=== PATIENT | female | born 1965 | race Caucasian/White ===

== ENCOUNTER 2022-03-26 09:15 | Outpatient (CLI) | payer OTHER, SELFPAY ==
--- NOTE | ~2022-03-26 | XR_ITS ---
EXAMINATION: XR shoulder RT min 2V INDICATION: Right shoulder pain TECHNIQUE: Four views of the right shoulder are submitted. COMPARISON: None FINDINGS: Normal alignment. No fracture. There is moderate osteoarthritis of the acromioclavicular fede int and mild osteoarthritis of the glenohumeral joint. Soft tissues are unremarkable. IMPRESSION: 1. Osteoarthritis without acute osseous abnormality. Reviewed, dictated and finalized at location B.
--- NOTE | ~2022-03-26 | XR_ITS ---
EXAMINATION: XR hand LT min 3V INDICATION: Medial hand pain, trigger finger of the third finger. TECHNIQUE: Three views of the left hand are obtained. COMPARISON: None available FINDINGS: Bone alignment is normal. There is a questionable old fracture at the dorsal base of the th ird distal phalanx. There is mild osteoarthritis of multiple interphalangeal joints. There is moderat e osteoarthritis at the first interphalangeal joint. IMPRESSION: 1. Polyarticular osteoarthritis. 2. Possible old fracture at the dorsal base of the third distal phalanx. Reviewed, dictated and finalized at location B.
[2022-03-26 18:58] LABS: Basophils Percent Auto 0.8 % (0.2-1.2); Eosinophils Absolute Auto 0.1 K/mm3 (0-0.3); Eosinophils Percent Auto 2.7 % (0-4.4); Hematocrit 42.4 % (37.0-47.0); Hemoglobin 13.2 g/dL (12.0-15.0); Lymphocytes Absolute Auto 1.32 K/mm3 (0.9-3.2); Lymphocytes Percent Auto 35.4 % (18.3-44.2); Mean Corpuscular HGB Conc 31.1 g/dl (32-36); Mean Corpuscular Hemoglobin 30.7 pg (26-34); Mean Corpuscular Volume 98.6 fl (80-100); Mean Platelet Volume 10.7 fl (7.4-10.4); Monocytes Absolute Auto 0.3 K/mm3 (0.1-0.6); Monocytes Percent Auto 7.2 % (2.6-8.5); Neutrophils Percent Auto 53.9 % (45.5-73.1); Platelet Count Result 239 k/mm3 (150-375); Red Cell Distribution Width 15.4 % (11.5-14.5); White Blood Count 3.7 K/mm3 (4.5-10.0)
[2022-03-26 20:04] LABS: Alanine Aminotransferase 21 U/L (6-35); Albumin Level 4.7 g/dL (3.5-5.1); Alkaline Phosphatase 57 U/L (38-126); Anion Gap 8 mmol/L (8-16); Aspartate Amino Transferase 48 U/L (14-36); Bilirubin,Total 0.4 mg/dL (0.2-1.3); Blood Urea Nitrogen 24 mg/dL (7-17); Calcium 9.5 mg/dL (8.4-10.2); Carbon Dioxide 32 mmol/L (22-30); Chloride 97 mmol/L (98-107); Cholesterol 192 mg/dL (0-200); Estimated Glomerular Filt Rate > 60; Glucose 88 mg/dL (65-110); HDL Direct 74 mg/dL; Potassium 4.3 mmol/L (3.4-5.0); Sodium 137 mmol/L (137-145); Triglycerides 86 mg/dL (<150)
[2022-03-26 20:15] LABS: LDL Cholesterol Direct 92 mg/dL
== END 2022-03-26 09:16 | disposition home or self-care (01) ==
LOC: ANHBWCIMG 09:18
PROVIDERS: PCP Family Medicine; Visit Provider Family Medicine
DX: Z00.00 Encounter for general adult medical examination without abnormal findings (principal); M65.332 Trigger finger, left middle finger; M19.042 Primary osteoarthritis, left hand; M19.011 Primary osteoarthritis, right shoulder
CPT/HCPCS: 36415; 73030; 73130; 80053; 80061; 85025

== ENCOUNTER 2022-06-25 09:21 | Emergency (ER) | payer OTHER, SELFPAY ==
[2022-06-25 09:34] VITALS: BP 124/74; PULSE 86; RESP 20; TEMP 37.4; O2SAT 100
--- NOTE | 2022-06-25 11:07 | ED.URI ---
HPI - URI/Sore Throat General Chief Complaint: Upper Respiratory Infection Stated Complaint: Chest Congestion/Cough Time Seen by Provider: 06/25/22 10:50 Source: patient, RN notes reviewed and old records reviewed Mode of arrival: ambulatory Limitations: no limitations History of Present Illness HPI Narrative: 57-year-old female who presents to [facility] with complaints cough, green nasal drainage. fever, headaches, sore throat. pressure face and ears, nausea and vomiting since past Thursday. Patient did go to [facility] urgent care on the and received Tessalon Perles cough tablets and she was tested for COVID and flu which both negative. Patient has taken Flonase, Tesslon Perles, Mucinex, Sudafed and Tylenol and Ibuprofen for her symptoms without resolution. MD elicited complaint: fever, cough, rhinorrhea, nasal congestion and sinus pain Onset (ago): week(s) (1) Treatments prior to arrival: acetaminophen, ibuprofen, cold medicine and other (Mucinex, Tesslon Perles) Related Data Home Medications Medication Instructions Recorded Confirmed ezetimibe 10 mg tablet 10 mg PO DAILY 06/25/22 06/25/22 rosuvastatin 5 mg tablet 5 mg PO DAILY 06/25/22 06/25/22 Allergies Allergy/AdvReac Type Severity Reaction Status Date / Time amoxicillin Allergy Hives Verified 06/25/22 10:39 Review of Systems Review of Systems: CONSTITUTIONAL: Report malaise, chills, sweats, or fever. EYES: Denies visual changes, redness, or discharge. ENT: Reports rhinorrhea, congestion, sinus pain, no otalgia positive sore throat. CARDIOVASCULAR: Denies chest pain, palpitations, or edema. RESPIRATORY: Reports cough.? Denies dyspnea. GASTROINTESTINAL: Denies abdominal pain, positive nausea, vomiting, no diarrhea SKIN: Denies rash or itching. MUSCULOSKELETAL: Denies myalgia. NEUROLOGIC: positive headache. All systems reviewed & are unremarkable except as noted in HPI and below PMFSH Past Medical History Medical History (Updated 06/30/22 @ 14:02 by Shyanne Hendrix NP) Congenital absence of one kidney Elevated cholesterol Surgical History Surgical History (Updated 06/30/22 @ 13:49 by Shyanne Hendrix NP) History of tonsillectomy Social History Social History (Updated 06/30/22 @ 13:50 by KAMLA Leger Smoking status: Never smoker Alcohol intake: unknown Substance use: never Living arrangements: with family Gender identity (if verbalized by the patient): Female Comments At time of signature, agree with nursing past medical, surgical, social and family history. There is no relevant family history pertinent to the presenting complaint Exam Narrative: GENERAL: Well-appearing, well-nourished, and in no acute distress. HEAD: Normocephalic EYES: PERRLA, conjunctivae clear ENT: Nares clear, turbinates edematous and erythematous, yellow greenish discharge. Mucous membranes moist. TM pearly ram with dull light reflex bilaterally; no tragal tenderness. Oropharynx erythematous without lesions. Tonsils not present, no exudate, no drooling, no hoarseness, no trismus, uvula midline, post nasal drainage. NECK: Supple. No lymphadenopathy CHEST: Clear to auscultation, breath sounds equal. No wheezing, rhonchi, rales, or stridor. No respiratory distress, speaks in full sentences, hacking cough SAO2 100% on room air. HEART: Regular rate and rhythm. No murmur heard. SKIN: Warm, dry, no rash. NEURO: Alert and oriented x3. PSYCH: Normal mood and affect Course Course Emergency Course: Patient is aware of diagnosis, understands and agrees to treatment plan.? Anticipatory guidance given.? Patient agrees to follow-up as directed and is aware of reasons to seek care at the emergency department. Portions of this record may have been created with voice recognition software Level of Care: Express Care Visit Vital Signs Vital signs: Vital Signs Temperature 37.4 C 06/25/22 09:34 Pulse Rate 86 06/25/22 09:
[2022-06-25] MEDS: ONDANSETRON HCL ODT 4 MG TABLET SUBLINGUAL (11:17)
== END 2022-06-25 11:55 | disposition home or self-care (01) ==
PROVIDERS: Emergency Provider Registered Nurse; PCP Family Medicine
DX: J32.9 Chronic sinusitis, unspecified (principal); E78.00 Pure hypercholesterolemia, unspecified; Z90.5 Acquired absence of kidney
CPT/HCPCS: 99213; A9270; G0463

== ENCOUNTER 2022-07-21 09:57 | Emergency (ER) | payer OTHER, SELFPAY ==
[2022-07-21 10:04] VITALS: BP 130/74; PULSE 97; RESP 14; TEMP 37.5; O2SAT 98
--- NOTE | 2022-07-21 10:48 | ED.URI ---
HPI - URI/Sore Throat General Chief Complaint: Upper Respiratory Infection Stated Complaint: cold flu Time Seen by Provider: 07/21/22 10:48 Source: patient, RN notes reviewed and old records reviewed Mode of arrival: ambulatory Limitations: no limitations History of Present Illness HPI Narrative: 57-year-old female who presents to [facility] with complaints of sinus pressure, sore throat,headache, nasal congestion, feels achy,and ear popping since yesterday. Patient reports that she has taken nasal spray, Sudafed, Tylenol and tramadol for her discomfort and also some Mucinex. Patient reports that she has had low grade fever and ear popping.Patient reports that she has not had COVID vaccinations or flu shot. MD elicited complaint: cough, sore throat, nasal congestion and other (ear popping) Onset (ago): day(s) (day 2 of symptoms) Treatments prior to arrival: acetaminophen, cold medicine and other (Sudafed, Mucinex,tramadol,Tylenol) Related Data Home Medications Medication Instructions Recorded Confirmed ezetimibe 10 mg tablet 10 mg PO DAILY 06/25/22 06/25/22 rosuvastatin 5 mg tablet 5 mg PO DAILY 06/25/22 06/25/22 Allergies Allergy/AdvReac Type Severity Reaction Status Date / Time amoxicillin Allergy Mild Hives Verified 07/21/22 10:54 Review of Systems Review of Systems: CONSTITUTIONAL: Reports malaise, chills, sweats, or fever. EYES: Denies visual changes, redness, or discharge. ENT: Reports rhinorrhea, congestion, sinus pain, otalgia and sore throat. CARDIOVASCULAR: Denies chest pain, palpitations, or edema. RESPIRATORY: Reports cough.? Denies dyspnea. GASTROINTESTINAL: Denies abdominal pain, nausea, vomiting, diarrhea SKIN: Denies rash or itching. MUSCULOSKELETAL positive myalgia. NEUROLOGIC: Positive headache. All systems reviewed & are unremarkable except as noted in HPI and below PMFSH Past Medical History Medical History (Updated 07/22/22 @ 00:00 by Chapin Daakhil) Congenital absence of one kidney Elevated cholesterol Surgical History Surgical History (Updated 06/30/22 @ 13:49 by Shyanne Hendrix NP) History of tonsillectomy Social History Social History (Updated 06/30/22 @ 13:50 by Shyanne L. Ruma, PATIENT ACCESS MANAGER) Smoking status: Never smoker Alcohol intake: unknown Substance use: never Gender identity (if verbalized by the patient): Female Comments At time of signature, agree with nursing past medical, surgical, social and family history. There is no relevant family history pertinent to the presenting complaint Exam Narrative: GENERAL: Well-appearing, well-nourished, and in no acute distress. HEAD: Normocephalic EYES: PERRLA, conjunctivae clear ENT: Nares clear, turbinates edematous and erythematous, clear discharge. Mucous membranes moist. TM pearly ram with dull light reflex bilaterally; no tragal tenderness. Oropharynx erythematous without lesions. Tonsils not present and without rhroat exudate, no drooling, no hoarseness, no trismus, uvula midline. NECK: Supple. No lymphadenopathy CHEST: Clear to auscultation, breath sounds equal. No wheezing, rhonchi, rales, or stridor. No respiratory distress, speaks in full sentences.cough, SAO2 98% on room air HEART: Regular rate and rhythm. No murmur heard. SKIN: Warm, dry, no rash. NEURO: Alert and oriented x3. PSYCH: Normal mood and affect Course Course Emergency Course: Patient is aware of diagnosis, understands and agrees to treatment plan.? Anticipatory guidance given.? Patient agrees to follow-up as directed and is aware of reasons to seek care at the emergency department. Portions of this record may have been created with voice recognition software Level of Care: Express Care Visit Vital Signs Vital signs: Vital Signs Temperature 37.5 C 07/21/22 10:04 Pulse Rate 97 07/21/22 10:04 Respiratory Rate 14 07/21/22 10:04 Blood Pressure 130/74 07/21/22 10:04 Pulse Oximetry 98 07/21/22
== END 2022-07-21 11:10 | disposition home or self-care (01) ==
PROVIDERS: Emergency Provider Registered Nurse; PCP Family Medicine
DX: J06.9 Acute upper respiratory infection, unspecified (principal); R05.9 Cough, unspecified; E78.00 Pure hypercholesterolemia, unspecified; Q60.0 Renal agenesis, unilateral
CPT/HCPCS: 87804; 99213; G0463

== ENCOUNTER 2022-08-25 13:10 | Outpatient (CLI) | payer OTHER, SELFPAY ==
[2022-08-25 20:38] LABS: Alanine Aminotransferase 22 U/L (6-35); Albumin Level 4.1 g/dL (3.5-5.1); Alkaline Phosphatase 69 U/L (38-126); Aspartate Amino Transferase 44 U/L (14-36); Bilirubin,Total 0.4 mg/dL (0.2-1.3)
[2022-08-25 21:14] LABS: Hepatitis B Surface Antigen Negative (Negative)
[2022-08-25 21:20] LABS: HAV RESULT Negative (Negative); Hepatitis B Core IgM Result Negative (Negative)
[2022-08-25 21:32] LABS: Hepatitis C Virus Antibody Negative (Negative)
== END 2022-08-25 13:11 | disposition home or self-care (01) ==
LOC: ANHBWCLAB 13:28
PROVIDERS: PCP Family Medicine; Visit Provider Family Medicine
DX: D72.819 Decreased white blood cell count, unspecified (principal); R74.01 Elevation of levels of liver transaminase levels; M25.511 Pain in right shoulder; M65.332 Trigger finger, left middle finger
CPT/HCPCS: 36415; 80074; 80076

== ENCOUNTER 2022-09-22 09:27 | Outpatient (CLI) | payer OTHER, SELFPAY ==
[2022-09-22 18:34] LABS: Basophils Percent Auto 0.9 % (0.2-1.2); Eosinophils Absolute Auto 0.1 K/mm3 (0-0.3); Eosinophils Percent Auto 3.6 % (0-4.4); Hematocrit 39.9 % (37.0-47.0); Hemoglobin 12.4 g/dL (12.0-15.0); Lymphocytes Absolute Auto 1.04 K/mm3 (0.9-3.2); Lymphocytes Percent Auto 31.5 % (18.3-44.2); Mean Corpuscular HGB Conc 31.1 g/dl (32-36); Mean Corpuscular Hemoglobin 29.3 pg (26-34); Mean Corpuscular Volume 94.3 fl (80-100); Mean Platelet Volume 10.3 fl (7.4-10.4); Monocytes Absolute Auto 0.3 K/mm3 (0.1-0.6); Neutrophils Absolute Auto 1.8 K/mm3 (1.3-6.7); Platelet Count Result 235 k/mm3 (150-375); Red Blood Count 4.23 M/mm3 (4.2-5.4); Red Cell Distribution Width 17.3 % (11.5-14.5); White Blood Count 3.3 K/mm3 (4.5-10.0)
[2022-09-22 19:15] LABS: Vitamin D 25 Hydroxy 61.6 ng/mL
== END 2022-09-22 09:28 | disposition home or self-care (01) ==
LOC: ANHBWCLAB 09:28
PROVIDERS: PCP Family Medicine; Visit Provider Family Medicine
DX: R79.89 Other specified abnormal findings of blood chemistry (principal); D72.819 Decreased white blood cell count, unspecified; E55.9 Vitamin D deficiency, unspecified
CPT/HCPCS: 36415; 82306; 85025

== ENCOUNTER 2023-01-26 08:41 | Outpatient (CLI) | payer OTHER, SELFPAY ==
[2023-01-26 18:59] LABS: Hematocrit 34.6 % (37.0-47.0); Hemoglobin 10.6 g/dL (12.0-15.0); Mean Corpuscular HGB Conc 30.6 g/dl (32-36); Mean Corpuscular Hemoglobin 29.5 pg (26-34); Mean Corpuscular Volume 96.4 fl (80-100); Mean Platelet Volume 10.4 fl (7.4-10.4); Platelet Count Result 213 k/mm3 (150-375); Red Blood Count 3.59 M/mm3 (4.2-5.4); Red Cell Distribution Width 16.2 % (11.5-14.5); White Blood Count 3.2 K/mm3 (4.5-10.0)
[2023-01-26 19:54] LABS: Alanine Aminotransferase 27 U/L (6-35); Albumin Level 4.2 g/dL (3.5-5.1); Alkaline Phosphatase 51 U/L (38-126); Anion Gap 1 mmol/L (8-16); Aspartate Amino Transferase 54 U/L (14-36); Bilirubin,Total 0.3 mg/dL (0.2-1.3); Blood Urea Nitrogen 18 mg/dL (7-17); Calcium 9.1 mg/dL (8.4-10.2); Carbon Dioxide 34 mmol/L (22-30); Chloride 104 mmol/L (98-107); Cholesterol 135 mg/dL (0-200); Estimated Glomerular Filt Rate > 60; Glucose 107 mg/dL (65-110); HDL Direct 69 mg/dL; Potassium 4.7 mmol/L (3.4-5.0); Sodium 139 mmol/L (137-145); Triglycerides 53 mg/dL (<150)
[2023-01-26 20:05] LABS: LDL Cholesterol Direct 54 mg/dL
== END 2023-01-26 08:42 | disposition home or self-care (01) ==
PROVIDERS: PCP Family Medicine; Visit Provider Family Medicine
DX: F98.8 Other specified behavioral and emotional disorders with onset usually occurring in childhood and adolescence (principal); R00.2 Palpitations; R16.0 Hepatomegaly, not elsewhere classified; R74.8 Abnormal levels of other serum enzymes; D49.0 Neoplasm of unspecified behavior of digestive system; R74.01 Elevation of levels of liver transaminase levels; D72.819 Decreased white blood cell count, unspecified
CPT/HCPCS: 36415; 80053; 80061; 85027

== ENCOUNTER 2024-05-12 06:50 | Outpatient (CLI) | payer OTHER, SELFPAY ==
--- NOTE | ~2024-05-12 | MR_ITS ---
EXAMINATION: MR MRCP wo/w con/w 3D wo ind DATE: 05/12/2024 07:54 INDICATION: Pancreatic abnormality. Family history of malignant neoplasm of digestive organ. TECHNIQUE: Magnetic resonance imaging (MRI) of the abdomen was performed without and with 12 mL Multi Timbo intravenous contrast. Sequences included coronal T2-weighted FS FSE, coronal T2-weighted FSE, a xial T1-weighted LAVA, coronal FS FIESTA, axial dual-echo T1-weighted SPGR, coronal lava-FLEX, sagitt al T2-weighted FSE, axial T2-weighted FSE, and axial DWI. Thick-slab T2-weighted FSE images were obta ined for magnetic resonance cholangiopancreatography (MRCP). Maximum intensity projection 3-D reconst ructions of the volumetric data were created by the technologist. Postcontrast sequences included cor onal LAVA-flex and time course of axial T1-weighted LAVA. COMPARISON: None. FINDINGS: ABDOMEN MRI: There is an 8 mm cyst in the pancreas that communicates with the main pancreatic duct. T he main pancreatic duct is normal in caliber. The liver, gallbladder, spleen, and adrenal glands are normal. Right kidney is absent. There are cysts in left kidney measuring up to 8 mm. There are no dil ated loops of bowel. There are no pathologically enlarged lymph nodes. There is no free intraperitone al fluid. There is severe lower lumbar spondylosis. ABDOMEN MRCP: The common duct is normal in caliber. No choledocholithiasis. IMPRESSION: 1. 8 mm pancreatic cyst. The differential diagnosis includes pseudocyst, intraductal papillary mucino us neoplasm (IPMN), mucinous cystic neoplasm (MCN), serous cystadenoma, and neuroendocrine tumor. Abd omen MRI without and with contrast is recommended in one year. Reviewed, dictated and finalized at location A. IMPRESSION: 1. 8 mm pancreatic cyst. The differential diagnosis includes pseudocyst, intrad uctal papillary mucinous neoplasm (IPMN), mucinous cystic neoplasm (MCN), serou s cystadenoma, and neuroendocrine tumor. Abdomen MRI without and with contrast is recommended in one year.
== END 2024-05-12 06:51 | disposition home or self-care (01) ==
PROVIDERS: PCP Family Medicine; Visit Provider Nurse Practitioner
DX: Z80.0 Family history of malignant neoplasm of digestive organs (principal); K86.2 Cyst of pancreas
CPT/HCPCS: 74183; 76376; A9577

== ENCOUNTER 2024-05-16 09:09 | Outpatient (CLI) | payer OTHER, SELFPAY ==
--- NOTE | 2024-05-16 09:29 | ECG_ITS ---
Test Date: 2024-05-16 09:37:32 Measurements Intervals Adrian Rate: 65 P: 70 OK: 182 QRS: 89 QRSD: 98 T: 56 QT: 386 QTc: 404 Interpretive Statements SINUS RHYTHM WITH SINUS ARRHYTHMIA No previous ECG available for comparison Electronically Signed On 05-16-2024 14:35:00 CDT by Jak Andrew M.D.
== END 2024-05-16 09:10 | disposition home or self-care (01) ==
LOC: ANHSURGERY 09:14
PROVIDERS: PCP Family Medicine; Visit Provider Obstetrics & Gynecology
DX: E78.00 Pure hypercholesterolemia, unspecified (principal); Z01.818 Encounter for other preprocedural examination
CPT/HCPCS: 93005

== ENCOUNTER 2024-05-18 01:57 | Day surgery (SDC) | payer MEDICAID, SELFPAY ==
[2024-05-10 14:48] VITALS: BMI 23.4
--- NOTE | 2024-05-10 14:57 | PC.NURSE ---
Report to the Outpatient Waiting Room, entrance under the green pavilion located off [facility], at time __1100_ on date _05/18/24_. Planned Procedure Time: _1300_.? Time changes happen often and if your time is changed the preop area will call you the afternoon before. - You and your visitor will be asked to self-screen and do not enter if you have any COVID symptoms. Please call surgeon if you need to reschedule. - A mask is optional within the hospital at this time. Patients may have clear liquids (water, carbonated beverages, clear teas, apple juice) until 3 hours prior to surgery with a maximum of 20 ounces. - No food from midnight until time of surgery and no smoking - Infants may have breast milk until 4 hours before surgery, formula 6 hours prior to surgery. - Children will be allowed to drink immediately following surgery.? If applicable, please bring a bottle or sippy cup to assist with drinking. Juice, water, soda, and popsicles are readily available.? For infants on formula, please bring formula the day of surgery.? Pacifiers are allowed. Take only the following medications with a SIP of water on the morning of surgery: NONE DO NOT STOP ANY OF YOUR OTHER PRESCRIPTION MEDICATIONS PRIOR TO SURGERY EXCEPT THE FOLLOWING Medications to discontinue per physician NONE Date to take last dose Please no make-up, nail czech, hairspray, perfume, deodorant, or body powder the day of surgery.? No jewelry (including any body piercings) or valuables the day of surgery, leave them at home.? Please take a shower or bath the night before, or the morning of, surgery with an antibacterial soap.? Wear comfortable, loose fitting clothing.? Children are encouraged to wear pajamas. - Jewelry must be removed prior to entering the operating room.? Rings and piercings that are not removed may be cut off. - The hospital will not accept responsibility for valuables.? - Please leave all valuables, including medications, at home the day of surgery. If you are going home after surgery, a licensed straddle bug driver must drive you home.? - NO public transportation without another adult if you receive anesthesia. - We recommend that an adult stay with you for 24 hours following discharge. - We also recommend that you do not drive, make important decision, drink alcoholic beverages, or take any drugs that were not prescribed by your health care provider for at least 24 hours after your discharge time. For Pediatric surgeries, we recommend two adults accompany the child home. Follow any additional instructions given to you from your surgeon. Telephone instructions given to _PATIENT_and asked if any additional questions and then verbalized understanding. Patient advised to call surgeon office or pre surgery nurse liaison [phone] if any additional questions.
--- NOTE | 2024-05-18 08:58 | PM.IMHP ---
H&P: HPI History of Present Illness Date/Time: 05/18/24 08:58 Chief Complaint: Abnormal pap Narrative: 58 y/o with Pap persistently read as ASC-H, but negative colposcopy and negative ECC. Review of Systems Review of Systems: All systems reviewed & are unremarkable except as noted in HPI and below [facility] Past Medical History Medical History (Updated 05/18/24 @ 09:02 by Pepe Cross MD) Attention deficit disorder Bacterial sinusitis Carpal tunnel syndrome Cervicalgia Colon cancer screening Congenital absence of one kidney Decreased leukocytes Elevated AST (SGOT) Elevated cholesterol Elevated liver enzymes FHx: pancreatic cancer Hand numbness History of LEEP (loop electrosurgical excision procedure) of cervix complicating IPMN (intraductal papillary mucinous neoplasm) Liver mass Memory deficit Palpitations Pancreatic cyst Right shoulder pain Trigger finger, left middle finger Surgical History Surgical History History of hand surgery Right middle finger trigger release History of tonsillectomy Social History Social History Smoking status: Never smoker Alcohol intake: current Drinks per week: 4 Substance use: never Lack of Transportation: No Lack of Food: Never True Current Housing: I Have Housing Concerned About Future Housing: No Difficulty Paying Gas/Electric Bills: No Difficulty Paying for Meds: No Currently Unemployed: No Education: Trade/Vocational Certificate Difficulty w/ Childcare or Family Care: No Living arrangements: with roommate(s) Gender identity (if verbalized by the patient): Female Meds Home Medications and Allergies Home Medications Medication Instructions Recorded Confirmed Type gabapentin 300 mg capsule 300 mg PO BID #30 caps 06/12/22 05/10/24 Rx ezetimibe 10 mg tablet 10 mg PO DAILY 06/25/22 05/10/24 History rosuvastatin 5 mg tablet 5 mg PO DAILY 06/25/22 05/10/24 History tramadol 50 mg tablet 50 mg PO Q6H PRN Pain 11/07/22 05/10/24 History dextroamphetamine-amphetamine 15 15 mg PO QAM #30 tabs 06/15/23 05/10/24 Rx mg tablet (Adderall) fluticasone propionate 50 2 spray intranasal DAILY PRN Nasal 05/10/24 05/10/24 History mcg/actuation nasal Congestion spray,suspension (Flonase Allergy Relief) Allergies Allergy/AdvReac Type Severity Reaction Status Date / Time amoxicillin Allergy Mild Hives Verified 05/10/24 14:44 atomoxetine [From Strattera] AdvReac Mild Dry Mouth Verified 05/10/24 14:44 Exam Const: Orientation/consciousness: patient oriented x3 Other: Well-developed, well-nourished female in no acute distress. Neck: Thyroid: thyroid normal Lymphatic: no lymphadenopathy noted (in neck, axilla or inguinal nodes) Resp: Effort & Inspection: normal respiratory effort Auscultation: clear to auscultation bilaterally Cardio: Rate: regular rate Rhythm: regular rhythm Heart sounds: S1 normal heart sound present and S2 normal heart sound present GI: Other: ABD: Soft, nontender, nondistended. No guarding or rebound tenderness. No hepatosplenomegaly. : General: Yes no CVA tenderness Other: External genitalia: normal female hair distribution, without lesion. Urethral meatus: no lesion, non prolapsed. Bladder: no mass, nontender Vagina: well-estrogenized, without lesion or discharge. No cystocele or rectocele. Cervix: no lesion or discharge. Uterus: small, anteverted, freely mobile, nontender Adnexa: no mass or tenderness. Anus/perineum: no lesions, nontender Back/Spine/Pelvis: Back: no CVA tenderness Skin: General skin exam: normal color and no rashes or lesions noted Neuro: General: patient oriented x3 Extrem: Other: Extremities: nontender with no edema Psych: Mental Status: mental status grossly normal Affect: normal affect Assessment and Plan
[2024-05-18] MEDS: LACTATED RINGERS 1,000 ML 30 ML IV CONT ×2 (11:30→13:35)
[2024-05-18 11:48] VITALS: BP 140/86; PULSE 98; RESP 16; TEMP 36.2; O2SAT 100
[2024-05-18] MEDS: ACETAMINOPHEN 500 MG TABLET 1000 MG PO (11:48)
--- NOTE | 2024-05-18 12:08 | WPDHPUPDATE1 ---
History and Physical Update Update Date/Time: 05/18/24 12:08 History and Physical has been reviewed, including an updated exam of the patient. There are NO changes in the patient's condition. Risks, benefits, and alternatives have been discussed and questions answered. Patient agrees to proceed with procedure.
--- NOTE | 2024-05-18 12:15 | WPDANESEPPF ---
Anes - Initial Pre Proc Eval Procedure: Operation Date: 05/18/24 13:00 Proposed Procedures p Loop Electrical Excision Procedure - Pepe Cross MD Date/Time: 05/18/24 12:15 Surgeon: Pepe Cross MD Pre Op Diagnosis: HGSIL Patient Data Age: 58 Gender: F Height: 1.63 m Weight: 61.2 kg Last Vital Signs Temp 36.2 C L 05/18/24 11:48 Pulse 98 05/18/24 11:48 Resp 16 05/18/24 11:48 BP 140/86 05/18/24 11:48 Pulse Ox 100 05/18/24 11:48 O2 Del Method Room Air 05/18/24 11:48 Allergies Allergy/AdvReac Type Severity Reaction Status Date / Time amoxicillin Allergy Mild Hives Verified 05/18/24 11:45 atomoxetine [From Strattera] AdvReac Mild Dry Mouth Verified 05/18/24 11:45 Home Medications Medication Instructions Recorded Confirmed Type gabapentin 300 mg capsule 300 mg PO BID #30 caps 06/12/22 05/18/24 Rx ezetimibe 10 mg tablet 10 mg PO DAILY 06/25/22 05/10/24 History rosuvastatin 5 mg tablet 5 mg PO DAILY 06/25/22 05/10/24 History tramadol 50 mg tablet 50 mg PO Q6H PRN Pain 11/07/22 05/10/24 History dextroamphetamine-amphetamine 15 15 mg PO QAM #30 tabs 06/15/23 05/10/24 Rx mg tablet (Adderall) fluticasone propionate 50 2 spray intranasal DAILY PRN Nasal 05/10/24 05/10/24 History mcg/actuation nasal Congestion spray,suspension (Flonase Allergy Relief) Patient hx anesthesia problems: none Family hx anesthesia problems: none Results Review: All pre-operative results and documents have been reviewed as part of the pre-operative evaluation. [facility] Past Medical History Medical History Attention deficit disorder Bacterial sinusitis Carpal tunnel syndrome Cervicalgia Colon cancer screening Congenital absence of one kidney Decreased leukocytes Elevated AST (SGOT) Elevated cholesterol Elevated liver enzymes FHx: pancreatic cancer Hand numbness History of LEEP (loop electrosurgical excision procedure) of cervix complicating IPMN (intraductal papillary mucinous neoplasm) Liver mass Memory deficit Palpitations Pancreatic cyst Right shoulder pain Trigger finger, left middle finger Surgical History Surgical History History of hand surgery Right middle finger trigger release History of tonsillectomy Social History Social History Smoking status: Never smoker Alcohol intake: current Drinks per week: 4 Substance use: never Lack of Transportation: No Lack of Food: Never True Current Housing: I Have Housing Concerned About Future Housing: No Difficulty Paying Gas/Electric Bills: No Difficulty Paying for Meds: No Currently Unemployed: No Education: Trade/Vocational Certificate Difficulty w/ Childcare or Family Care: No Living arrangements: with roommate(s) Gender identity (if verbalized by the patient): Female Anes - Eval Final PreProcedure Day of Procedure 05/18/24 12:15 Patient weight: normal Heart: regular rate and rhythm Lungs: clear to auscultation Airway: Mallampati scale class II Neurological: alert and oriented Last oral intake: >/= 8 hours ASA classification: II Emergent: no Anesthetic plan: proceed Anesthesia type and monitoring: general GIVS and standard monitoring Results Review: All pre-operative results and documents have been reviewed as part of the pre-operative evaluation. Informed Consent: The patient's anesthetic plan and its attendant risks and benefits were discussed with the patient/family/POA. Questions were solicited and answers provided to the satisfaction of the patient/family/POA.
[2024-05-18] MEDS: LIDOCAINE HCL 1% PF INJ 5 ML VIAL 10 ML INFILTRATE (13:11)
[2024-05-18] MEDS: FERRIC SUBSULFATE 8 ML SOLUTION WITH APPLICATOR TOPICAL (13:30)
[2024-05-18 13:35] VITALS: BP 89/51; PULSE 56; RESP 12; O2SAT 95
--- NOTE | 2024-05-18 13:38 | W.PM.PROC2 ---
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 Description of Procedure The patient was taken to the operating room where she was prepared and draped in the usual sterile fashion in the dorsal lithotomy position. The bladder was drained with a red rubber catheter. An insulated sterile speculum was placed into the vagina. The anterior lip of the cervix was grasped with single-tooth tenaculum. Ten mL of 1% lidocaine was administered in a paracervical block. LEEP biopsies were then collected, first from the posterior lip of the cervix, then the anterior lip, then the top of the hat. Hemostasis was achieved using a rollerball. Monsel's solution was applied. Hemostasis was excellent. Sponge, lap, needle and instrument counts were correct. The patient was awakened and taken to the recovery room in stable condition. I was present and scrubbed through the entire procedure. Estimated Blood Loss 10 Drains No Packing No Pathology Yes (LEEP biopsies of the cervix: anterior lip, posterior lip, top of the hat) Complications None Condition Stable Disposition PACU
[2024-05-18 14:05] VITALS: BP 97/54; PULSE 62; RESP 12; O2SAT 98
[2024-05-18] MEDS: oxyCODONE HCL (*CRX) 5 MG TAB IR PO (14:18)
[2024-05-18 14:25] VITALS: BP 114/71; PULSE 57; RESP 12
== END 2024-05-18 14:40 | disposition home or self-care (01) ==
PROVIDERS: PCP Family Medicine; Visit Provider Obstetrics & Gynecology
PROC: 0UBC7ZZ Excision of Cervix, Via Natural or Artificial Opening (ICD-10-PCS; CPT 57522; principal; 2024-05-18 13:00)
DX: R87.611 Atypical squamous cells cannot exclude high grade squamous intraepithelial lesion on cytologic smear of cervix (ASC-H) (principal); R87.810 Cervical high risk human papillomavirus (HPV) DNA test positive; G89.18 Other acute postprocedural pain; F98.8 Other specified behavioral and emotional disorders with onset usually occurring in childhood and adolescence; E78.00 Pure hypercholesterolemia, unspecified; Z79.891 Long term (current) use of opiate analgesic; Z98.890 Other specified postprocedural states; Z90.5 Acquired absence of kidney; Z86.018 Personal history of other benign neoplasm; Z80.0 Family history of malignant neoplasm of digestive organs
CPT/HCPCS: 57522; 88307; A9270; J1100; J1885; J2003; J2250; J2405; J2704; J3010; J7120

== ENCOUNTER 2024-05-20 09:00 | Outpatient (RCR) | payer MEDICAID, OTHER, SELFPAY ==
--- NOTE | 2024-04-28 16:03 | OPREHPOC ---
Outpatient Therapy Plan of Care This is a Multidisciplinary Plan of Care that may contain components documented by all disciplines (PT, OT, and ST.) PT Problem 1 PT Problem #1 Knowledge Deficit PT Goal 1 Goal / Goal Update 1. Patient will perform independent HEP Target Visit 3 PT Problem 2 PT Problem #2 Impaired Strength PT Goal 1 Goal / Goal Update 1. Improve pelvic floor strength to 4/5 to reduce incontinence Target Visit 5 PT Problem 3 PT Problem #3 Impaired Functional ADLs PT Goal 1 Goal / Goal Update 1. Patient will report incontinence no more than 1 time a month 2. Patient able to hold urge to void at least 30 minutes Target Visit 5
--- NOTE | 2024-04-28 16:03 | PTOPEVAL1 ---
Assessment and note entered by Shannan Valdivia DPT Evaluation Information Assessment Status Evaluation ICD-10 Condition Codes (PT) Weakness R53.1,R10.2,Urge incontinence N39.41 Subjective Information Pt reports she is having urinary incontinence, seems more related to urge than coughing/sneezing. Also has had hemorrhoids. Voids 6-10 times a day, 0-1 times at night. Can hold urge 1-5 minutes. Denies pain with urination. Incontinence 2-3 times a week, moderate volume and is enough that she will change her underwear. Has worn pads for it but not consistently. BM usually 1 time a day, noticing a fecal smear in her underwear up to once a week. Denies pain with BM. Denies history of pelvic pain. Pt has been 3 times and 3 vaginal deliveries. Tearing with her first. No other [employer] or b/b history. Drinking mostly water throughout the day, 3 cups of coffee a week. No soda, green tea occasionally. Alcohol 2-3 times a week. Returns to [place] in 2 weeks for LEEP. Patient goal: have the confidence to not carry extra underwear around, improve urination Reported Pain Level Pain Score 0: Self Report Assessment PT Clinical Summary The patient is presenting to skilled therapy with a history of urge incontinence. She presents with decreased pelvic floor, core, and hip strength which are contributing to her incontinence multiple times a week and inability to hold urine more than a few minutes at a time. She will highly benefit from therapy to address these impairments in order to reduce incontinence and improve function. Plan of Care Interventions Manual Therapy,Neuro Re-education,Patient/ Caregiver Education,Therapeutic Activities, Therapeutic Exercise PT Services Indicated Yes Treatment Frequency and 1 time a week for 5 visits Duration These treatments will address the objective and functional deficits as defined above. The patient will be advanced safely and appropriately in order for the patient to progress towards his/her prior level of function. Additional exercises will be introduced and as well as a comprehensive home exercise program upon discharge, if needed, ?to ensure carryover of functional gains achieved in the clinic. This treatment plan has been reviewed and agreement upon by the patient.
--- NOTE | 2024-05-05 10:28 | PCPTNOTE ---
Patient called to cancel appointment on 05/05/24 due to going out of town.
--- NOTE | 2024-07-14 13:13 | PTOPDC ---
Assessment and note entered by Shannan Valdivia DPT Evaluation Information Assessment Status Discharge - Pt Not Present ICD-10 Condition Codes (PT) Weakness R53.1,Pelvic and perineal pain R10.2,Urge incontinence N39.41 Subjective Information - Assessment PT Clinical Summary The patient has not attended therapy since and her case will be discharged this date. Plan of Care PT Services Indicated No
== END 2024-07-15 10:17 | disposition home or self-care (01) ==
LOC: ANHPT 09:00
PROVIDERS: PCP Nurse Practitioner Adult Health; Visit Provider Obstetrics & Gynecology
DX: R10.2 Pelvic and perineal pain (principal); N39.41 Urge incontinence
CPT/HCPCS: 97110; 97112; 97161; 97530

== ENCOUNTER 2024-10-26 09:41 | Outpatient (CLI) | payer OTHER, SELFPAY ==
[2024-10-26 10:16] LABS: Hematocrit 40.3 % (37.0-47.0); Hemoglobin 13.2 g/dL (12.0-15.0)
--- OUTSIDE RECORDS SUMMARY | 2024-10-26 10:45 | XMS_ITS | Encounter Summary ---
Author Organization [facility] Address [address] [place] [address] Phone Care Team Providers Care Dye Penetrant Testing Technician Name Role Phone Nishi Olsen MD Primary Care Provider [phone] Pepe Cross MD Unavailable [phone] Everardo CHANDLER MD, Román Pérez Unavailable +- [phone] Bel Romero Unavailable +[phone] Román Acosta MD Unavailable [phone] Maynor العراقي MD Unavailable [phone] Corazon Wellington MD Unavailable [phone] Unknown, Notinfile Primary Care Provider Unavail able Michael Li MD Primary Care Provider [phone] Encounter Details Date Type Department Care Team (Late st Contact Info) Description 04/26/2020 Orders Only [facility] [address] [place] [address] Scanning, Provider Social History Tobacco Use Types Packs/Day Years Used Date Smoking Tobacco: Former Smokeless Tobacco: Never Alcohol Use Standard Drinks/Week Comments Yes 4 (1 standard drink = 0.6 oz pur e alcohol) occasional/social PHQ-2 Answer Date Recorded PHQ-2 Total Score (If total score is 3 or more points, staff should administer the PHQ-9) 1 11/08/2019 Comments No Sex and Gender Information Value Date Recorded Sex Assigned at Not on file 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 Gender Identity Female 03/02/2020 7:16 AM CDT Sexual Orientation Straight 03/02/2020 7: 16 AM CDT documented as of this encounter Plan of Treatment Not on file documented as of this encounter Procedures Procedure Name Priority Date/Time Associated Diagnosis Comments CARDIOLOGY DOCUMENT SCAN 04/26/2020 documented in this encounter Results * SCAN - CARDIOLOGY (04/26/2020) Anatomical Region Laterality Modality Other us Provider Scanning CV CARDIAC SERVICES PROCEDURES Final Result documented in this encounter Visit Diagnoses Not on filedocumented in this encounter Additional Health Concerns Infection Onset Date Last Indicated Resolved Time COVID: Recovered Comment:Patient meets COVID recovered criteria. Positive lab results from 07/03. JACOB Ng 07/23/2020 07/23/2020 11/21/19 21 3:05 AM CDT documented as of this encounter Care Teams Dye Penetrant Testing Technician Relationship Specialty Start Date End Date Nishi Olsen MD PCP - General 10/31/16 12/01/22 Unknown, Notinfile PCP - General 01/31/23 07/06/24 Michael Li MD [address] [place] [address] PCP - General Family Practice 07/07/24 Pepe Cross MD [address] [address] Obstetrics and Gynecology 08/24/17 Román Mcgee III, MD [address] [address] Surgeon Plastic Surgery 08/24/18 Bel Romero PA [address] [address] Orthopedic Surgery 07/25/20 12/04/20 Román Acosta MD [address] [address] Surgeon Orthopedic Surgery 12/05/20 Maynor العراقي MD [address] [address] Consulting Physician Cardiology 12/05/20 Corazon Wellington MD [address] [facility] [address] [place] [address] Consulting Physician Gastroenterology 12/05/20 documented as of this encounter
--- OUTSIDE RECORDS SUMMARY | 2024-10-26 10:45 | XMS_ITS | Encounter Summary ---
Author Organization [facility] Address [address] [place] [address] Phone Care Team Providers Care Eye Clinic Manager Name Role Phone Nishi Olsen MD Primary Care Provider [phone] Pepe Cross MD Unavailable [phone] Everardo CHANDLER MD, Román Pérez Unavailable +- [phone] Bel Romero Unavailable [phone] Román Acosta MD Unavailable [phone] Maynor العراقي MD Unavailable [phone] Corazon Wellington MD Unavailable [phone] Unknown, Notinfile Primary Care Provider Unavail able Michael Li MD Primary Care Provider [phone] Encounter Details Date Type Department Care Team (Late st Contact Info) Description 04/10/2020 Orders Only [facility] [address] [place] [address] Scanning, Provider Social History Tobacco [...] on file 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 Gender Identity Female 03/02/2020 7:16 AM CDT Sexual Orientation Straight 03/02/2020 7: 16 AM CDT documented as of this encounter Plan of Treatment Not on file documented as of this encounter Procedures Procedure Name Priority Date/Time Associated Diagnosis Comments CARDIOLOGY DOCUMENT SCAN 04/10/2020 documented in this encounter Results * CARDIOLOGY DOCUMENT SCAN (04/10/2020) Anatomical Region Laterality Modality Other us Provider [...] documented as of this encounter Care Teams Eye Clinic Manager Relationship Specialty Start Date End Date Nishi Olsen MD PCP - General 10/31/16 12/01/22 Unknown, Notinfile PCP - General 01/31/23 07/06/24 Michael Li MD [address] [place] [address] PCP - General Family Practice 07/07/24 Pepe Cross MD [address] [address] Obstetrics and Gynecology 08/24/17 Román Mcgee III, MD [address] [address] Surgeon Plastic Surgery 08/24/18 Bel Romero PA [address] [address] Orthopedic Surgery 07/25/20 12/04/20 Román Acosta MD [address] [address] Surgeon Orthopedic Surgery 12/05/20 Maynor العراقي MD [address] [address] Consulting Physician Cardiology 12/05/20 Corazon Wellington MD [address] [facility] [address] [place] [address] Consulting Physician Gastroenterology 12/05/20 documented as of this encounter
--- OUTSIDE RECORDS SUMMARY | 2024-10-26 10:45 | XMS_ITS | Encounter Summary ---
Author Organization [facility] Address [address] [facility] [place] [address] Phone Care Team Providers Care Stave Saw Operator Name Role Phone Camilo Chisholm MD [facility] Michael Erazo MD Primary Care Provider [phone] Encounter Details Date Type Department Care Team (Late st Contact Info) Description 05/12/2023 Transcribe Orders [facility] Central Scheduling [address] [place] [address] Chiquita Benavidez APRN, VACUUM FORM OPERATOR [address] [address] Social History Tobacco Use Types Packs/Day Years Used Date Smoking Tobacco: Never Smokeless Tobacco: Never Alcohol Use Standard Drinks/Week Comments Yes 0 (1 standard drink = 0.6 oz pur e alcohol) social Sexually Active Control Partners Comments Yes Male Comments No Sex and Gender Information Value Date Recorded Sex Assigned at Female 03/16/2023 1:14 PM CDT Legal Sex Female 12:33 AM CDT Gender Identity Female 03/16/2023 1:14 PM CDT Sexual Orientation Not on file COVID-19 Exposure Response Date Recorded In the last 10 days, have yo u been in contact with someone who was confirmed or suspected to have Coronavirus/COVID-19? No / Unsure 05/15/2023 4:18 PM CDT documented as of this encounter Plan of Treatment Not on file documented as of this encounter Visit Diagnoses Not on filedocumented in this encounter Care Teams Stave Saw Operator Relationship Specialty Start Date End Date Michael Li MD [address] [place] [address] PCP - General Family Medicine 03/31/22 Camilo Chisholm MD Aircraft Time Clerk Cardiovascular Disease - Cardiology 03/21/22 documented as of this encounter
--- OUTSIDE RECORDS SUMMARY | 2024-10-26 10:45 | XMS_ITS | Encounter Summary ---
Author Organization [facility] Address [address] [place] [address] Phone Care Team Providers Care Manager Fixed Income Name Role Phone Nishi Olsen MD Primary Care Provider [phone] Pepe Cross MD Unavailable [phone] Everardo CHANDLER MD, Román Pérez Unavailable +- [phone] Bel Romero Unavailable [phone] Román Acosta MD Unavailable [phone] Maynor العراقي MD Unavailable +[phone] Corazon Wellington MD Unavailable [phone] Unknown, Notinfile Primary Care Provider Unavail able Michael Li MD Primary Care Provider [phone] Encounter Details Date Type Department Care Team (Late st Contact Info) Description 04/19/2020 Orders Only [facility] [address] [place] [address] Scanning, Provider Social History Tobacco [...] on file 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 Gender Identity Female 03/02/2020 7:16 AM CDT Sexual Orientation Straight 03/02/2020 7: 16 AM CDT documented as of this encounter Plan of Treatment Not on file documented as of this encounter Procedures Procedure Name Priority Date/Time Associated Diagnosis Comments CARDIOLOGY DOCUMENT SCAN 04/19/2020 documented in this encounter Results * SCAN - CARDIOLOGY (04/19/2020) Anatomical Region Laterality Modality Other us Provider [...] documented as of this encounter Care Teams Manager Fixed Income Relationship Specialty Start Date End Date Nishi Olsen MD PCP - General 10/31/16 12/01/22 Unknown, Notinfile PCP - General 01/31/23 07/06/24 Michael Li MD [address] [place] [address] PCP - General Family Practice 07/07/24 Pepe Cross MD [address] [address] Obstetrics and Gynecology 08/24/17 Román Mcgee III, MD [address] [address] Surgeon Plastic Surgery 08/24/18 Bel Romero PA [address] [address] Orthopedic Surgery 07/25/20 12/04/20 Román Acosta MD [address] [address] Surgeon Orthopedic Surgery 12/05/20 Maynor العراقي MD [address] [address] Consulting Physician Cardiology 12/05/20 Corazon Wellington MD [address] [facility] [address] [place] [address] Consulting Physician Gastroenterology 12/05/20 documented as of this encounter
--- OUTSIDE RECORDS SUMMARY | 2024-10-26 10:45 | XMS_ITS | Encounter Summary ---
Author Organization [facility] Address [address] [place] [address] Phone Care Team Providers Care Environmental Property Assessor Name Role Phone Nishi Olsen MD Primary Care Provider [phone] Pepe Cross MD Unavailable [phone] Everardo CHANDLER MD, Román Pérez Unavailable [phone] Bel Romero Unavailable [phone] Román Acosta MD Unavailable [phone] Maynor العراقي MD Unavailable +[phone] Corazon Wellington MD Unavailable [phone] Unknown, Notinfile Primary Care Provider Unavail able Michael Li MD Primary Care Provider [phone] Encounter Details Date Type Department Care Team (Late st Contact Info) Description 11/08/2020 Orders Only [facility] [address] [place] [place] [address] Nishi Olsen MD [address] [place], [place] [id number] Social History Tobacco Use Types Packs/Day Years [...] on file Legal Sex Female 3:58 PM MANAGER 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 Gender Identity Female 03/02/2020 7:16 AM CDT Sexual Orientation Straight 03/02/2020 7: 16 AM CDT documented as of this encounter Plan of Treatment Not on file documented as of this encounter Procedures Procedure Name Priority Date/Time Associated Diagnosis Comments SCAN - RADIOLOGY/IMAGING 11/08/2020 documented in this encounter Results * SCAN - RADIOLOGY/IMAGING (11/08/2020) Anatomical Region Laterality Modality Other us Nishi Olsen MD Final Resu lt documented in this encounter Visit Diagnoses Not on filedocumented in this encounter Additional Health Concerns Infection Onset Date Last Indicated Resolved Time COVID: Recovered Comment:Patient meets COVID recovered criteria. Positive lab results from 07/03. JACOB Ng 07/23/2020 07/23/2020 11/21/19 21 3:05 AM CDT documented as of this encounter Care Teams Environmental Property Assessor Relationship Specialty Start Date End Date Nishi Olsen MD PCP - General 10/31/16 12/01/22 Unknown, Notinfile PCP - General 01/31/23 07/06/24 Michael Li MD [address] [place] [address] PCP - General Family Practice 07/07/24 Pepe Cross MD [address] [place] [address] Obstetrics and Gynecology 08/24/17 Román Mcgee III, MD [address] [place] [address] Surgeon Plastic Surgery 08/24/18 Bel Romero PA [address] [address] Orthopedic Surgery 07/25/20 12/04/20 Román Acosta MD [address] [address] Surgeon Orthopedic Surgery 12/05/20 Maynor العراقي MD [address] [place] [address] Consulting Physician Cardiology 12/05/20 Corazon Wellington MD [address] [place] [address] Consulting Physician Gastroenterology 12/05/20 documented as of this encounter
--- OUTSIDE RECORDS SUMMARY | 2024-10-26 10:45 | XMS_ITS | Clinical Summary ---
Author Organization [facility] Address [address] [place] [address] Phone Care Team Providers Care Floral Associate Name Role Phone Camilo Chisholm MD Unavailable Michael Erazo MD Primary Care Provider [phone] Allergies Active Allergy Reactions Criticality Noted Date Comments Amoxicillin Hives 01/28/2019 Atorvastatin Other (see Comments) High 02/20/2020 Buspirone Other (see Comments) Low 03/27/2022 Reaction: dry mouth, Rosuvastatin Other (see Comments) High 04/10/2020 Medications amphetamine-dex troamphetamine (ADDERALL XR) 5 MG CAPSULE SR 24 HR TAKE 1 CAPSULE BY MOUTH EVERY MORNING 02/02/2023 Active fluticasone (FLONASE) 50 MCG/ACT Suspension 2 Sprays by Nasal route. 12/23/2021 Active gabapentin (NEURONTIN) 300 MG Capsule Take 300 mg by mouth. 06/12/2022 Active meloxicam (MOBIC) 15 MG Tablet Take 1 tablet every day by oral route with meals. 04/05/2020 Active rosuvastatin (CRESTOR) 5 MG TabletIndicatio ns:Palpitations TAKE 1 TABLET BY MOUTH DAILY 90 Tablet 3 10/12/2023 Active ezetimibe (ZETIA) 10 MG Tablet Take 1 Tablet by mouth daily. 90 Tablet 3 10/12/2023 Active Clindamycin HCl (CLEOCIN) 300 MG Capsule 11/20/2023 Active methylPREDNISol one (MEDROL DOSPACK) 4 MG Tablet Therapy Pack 11/20/2023 Active Active Problems Problem Noted Date Diagnosed Date B12 deficiency 11/23/2023 IPMN (intraductal papillary mucinous neoplasm) 0 03/05/2023 ADD (attention deficit disorder) 03/05/2023 Liver mass 03/05/2023 Iron deficiency 03/05/2023 Anemia Family History Medical History Relation Name Comments Diabetes Brother Heart Disease Brother Cancer Father Heart Disease Father Diabetes Mother Hypertension Mother Relation Name Status Comments Brother Alive Father Mother Alive Social History Tobacco Use Types Packs/Day Years Used Date Smoking Tobacco: Never Smokeless Tobacco: Never Tobacco Cessation:Counseling Given: Not Answered Alcohol Use Standard Drinks/Week Comments Yes 0 (1 standard drink = 0.6 oz pur e alcohol) social Sexually Active Control Partners Comments Yes Male Comments No Sex and Gender Information Value Date Recorded Sex Assigned at Female 03/16/2023 1:14 PM CDT Legal Sex Female 12:33 AM CDT Gender Identity Female 03/16/2023 1:14 PM CDT Sexual Orientation Not on file Last Filed Vital Signs Vital Sign Reading Time Taken Comments Blood Pressure 118/64 03/07/2024 3:40 PM CDT Pulse 77 03/07/2024 3:40 PM CDT Temperature 36.9 C (98.5 F) 03/07/2024 3:40 PM CDT Respiratory Rate 15 03/07/2024 3:40 PM CDT Oxygen Saturation 97% 03/07/2024 3:40 PM CDT Inhaled Oxygen Concentration - - Weight 60.4 kg (133 lb 3.2 oz) 11/23/2023 9:45 A M CDT Height 162.6 cm (5' 4 ) 11/23/2023 9:45 AM CDT Body Mass Index 22.86 11/23/2023 9:45 AM CDT Plan of Treatment Health Maintenance Due Date Last Done Comments Hepatitis C Virus (HCV) Screening 1966 Hepatitis B Immunization (1 of 3 - 19+ 3-dose series) 1985 Pap Smear 1987 Cervical Cancer Screening (CCS) 1996 HPV/Cotest 1996 Colonoscopy 2011 Cologuard 2016 Pneumococcal Immunization (50+ years) (1 of 1 - PCV) 2016 Zoster Immunization (2 of 2) 09/27/2019 08/02/2019 Colorectal Cancer Screening 03/17/2023 Immunochemical Fecal Occult Blood 03/16/2024 03/16/2023 Influenza Immunization (#1) 04/03/202407/05, 05/30/2016, 05/30/2015, Additional history exists SARS-COV-2 Immunization ( - season) 2024 Mammogram 12/03/2024 12/04/2023, 05/0 11/2022, 11/22/2021 Respiratory Syncytial Virus (RSV) Immunization (Adult) (1 - 1-dose 75+ series) 2041 DTaP/Tdap/Td Immunization Discontinued 08/02/2020, 12/2011 TdaP Immunization Completed 08/02/2020, 05/07/2012 Meningococcal Immunization (ACWY) Aged Out No longer eligible based on patient's age to complete this topic Rotavirus Immunization Aged Out No lo nger eligible based on patient's age to complete this topic Procedures Procedure Name Priority Date/Time Associated Diagnosis Comments ZACK DIAG BILATERAL DIGITAL W CAD W LAUREANO Routine 12/04/2023 8:55 AM CDT Abnormal mammogram STOOL, OCCULT BLOOD, DIAGNOSTIC, VIA GUAIAC Routine 03/16/2023 1:26 PM CDT Anemia, unspecified type from Last 3 Months or Most Recently Relevant to Health Maintenance Results * ZACK DIAG BILATERAL DIGITAL W CAD W LAUREANO (12/04/2023 8:55 AM CDT) Anatomical Region Laterality Modality breast Bilateral Mammography 12/04/2023 8:14 AM CDT Narrative 12/04/2023 11:17 AM CDT - ZACK DIAG BILATERAL DIGITAL W CAD W LAUREANO - ZACK US BREAST LIMITED LT BILATERAL DIGITAL DIAGNOSTIC MAMMOGRAM 3D/2D WITH CAD WITH MEDIOLATERAL OBLIQUE CRANIOCAUDAL AND LEFT ULTRASOUND: 12/04/2023 The study was acquired using digital technology and interpreted from soft copy. Current study was also evaluated with ICAD version 7.2. 2D digital mammographic views, as well as 3D digital tomosynthesis were performed in the CC and MLO projections. CLINICAL: Diagnostic study. Patient returns for a 2 year follow-up left breast. Right annual. Left upper-outer breast tenderness. No personal history of cancer. No family history of breast cancer. COMPARISONS: Comparison is made to exams dated: 11/22/2021, 01/07/2022, 12/04/2022 [facility], and 11/08/2020 [facility]. BREAST TISSUE:There are scattered fibroglandular densities in both breasts. FINDINGS: BILATERAL DIAGNOSTIC MAMMOGRAM: The previously seen asymmetry in the left breast middle depth medial region seen on the craniocaudal view only appears stable. No sonographic lesion was seen previously. This demonstrates 2 year stability and is now considered benign. No other significant masses, calcifications, or other findings are seen in either breast . No lesions are seen underlying the area of pain in the upper outer left breast. Further evaluation was obtained with sonography. TARGETED LEFT BREAST ULTRASOUND: Targeted sonographic evaluation of the area of pain in the upper outer left breast was performed. No solid or cystic lesions are seen. IMPRESSION: OVERALL STUDY BIRADS: 2 BENIGN The asymmetry in the left breast is stable and is now considered benign. No lesions are seen underlying the area of pain in the upper outer left breast. There is no mammographic or sonographic evidence of malignancy. A 1 year screening mammogram is recommended. The results and recommendations were discussed with the patient. Electronically signed by: Susanne Riddle M.D. ll/:12/04/2023 09:32:26 Lead Database Developer(s): RT Shelly(R)(M), [facility]; Mulu Vincent, [facility] letter sent: Normal Exam Reading location: [facility] OVERALL STUDY BIRADS: 2 Benign Procedure Note Susanne Riddle MD - 12/04/2023 - ZACK DIAG BILATERAL DIGITAL W CAD W LAUREANO - ZACK US BREAST LIMITED LT BILATERAL DIGITAL DIAGNOSTIC MAMMOGRAM 3D/2D WITH CAD WITH MEDIOLATERAL OBLIQUE CRANIOCAUDAL AND LEFT ULTRASOUND: 12/04/2023 The study was acquired using digital technology and interpreted from soft copy. Current study was also evaluated with ICAD version 7.2. 2D digital mammographic views, as well as 3D digital tomosynthesis were performed in the CC and MLO projections. CLINICAL: Diagnostic study. Patient returns for a 2 year follow-up left breast. Right annual. Left upper-outer breast tenderness. No personal history of cancer. No family history of breast cancer. COMPARISONS: Comparison is made to exams dated: 11/22/2021, 01/07/2022, 12/04/2022 [facility], and 11/08/2020 [facility]. BREAST TISSUE:There are scattered fibroglandular densities in both breasts. FINDINGS: BILATERAL DIAGNOSTIC MAMMOGRAM: The previously seen asymmetry in the left breast middle depth medial region seen on the craniocaudal view only appears stable. No sonographic lesion was seen previously. This demonstrates 2 year stability and is now considered benign. No other significant masses, calcifications, or other findings are seen in either breast . No lesions are seen underlying the area of pain in the upper outer left breast. Further evaluation was obtained with sonography. TARGETED LEFT BREAST ULTRASOUND: Targeted sonographic evaluation of the area of pain in the upper outer left breast was performed. No solid or cystic lesions are seen. IMPRESSION: OVERALL STUDY BIRADS: 2 BENIGN The asymmetry in the left breast is stable and is now considered benign. No lesions are seen underlying the area of pain in the upper outer left breast. There is no mammographic or sonographic evidence of malignancy. A 1 year screening mammogram is recommended. The results and recommendations were discussed with the patient. Electronically signed by: Susanne Riddle M.D. ll/:12/04/2023 09:32:26 Lead Database Developer(s): Fatimah Way RT(R)(M), [facility]; Mulu Vincent, [facility] letter sent: Normal Exam Reading location: [facility] OVERALL STUDY BIRADS: 2 Benign us Pepe Cross MD [facility] MAMMO ORDERABLES Final Resu lt * STOOL, OCCULT BLOOD, DIAGNOSTIC (03/16/2023 1:26 PM CDT) OCCULT BLOOD DIAG, GI BLEED Negative Negative 03/16/2023 2:03 PM CDT [facility] Stool STOOL SPECIMEN / Unknown Non-Phlebotomy Collection / Unknown 03/16/2023 1:26 PM CDT 03/16/2023 1:26 PM CDT us Michael Li MD BODY FLUIDS & STOOLS ORDERABLES Final Result [facility] [place] [address] from Last 3 Months or Most Recently Relevant to Health Maintenance Insurance MEDICAID [employer] [place] [employer] Care Teams Floral Associate Relationship Specialty Start Date End Date Michael Li MD [address] [place] [id number] PCP - General Family Medicine 03/31/22 Camilo Chisholm MD Flavoring Oil Filterer Cardiovascular Disease - Cardiology 03/21/22
--- OUTSIDE RECORDS SUMMARY | 2024-10-26 10:45 | XMS_ITS | Encounter Summary ---
Author Organization [facility] Address [address] [facility] [place] [address] Phone Care Team Providers Care Insight Leader Name Role Phone Camilo Chisholm MD [facility] Michael Erazo MD Primary Care Provider [phone] Reason for Visit * Reason Comments Medication Refill Encounter Details Date Type Department Care Team (Late st Contact Info) Description 10/11/2023 Refill [facility] [address] [place] [id number] Camilo Chisholm MD Medication Refill Social History Tobacco Use Types Packs/Day Years [...] PM CDT Sexual Orientation Not on file documented as of this encounter Miscellaneous Notes * Telephone Encounter - Tootie Salgado RN - 10/12/2023 8:01 AM CDT Medication failed the protocol, provider to review and approve the medication order if appropriate. Requested Prescriptions Pending Prescriptions Disp Refills rosuvastatin (CRESTOR) 5 MG Tablet [Pharmacy Med Name: ROSUVASTATIN 5MG TABLETS] 90 Tablet 3 Sig: Take 1 Tablet by mouth daily. Hmg CoA Reductase Inhibitors Protocol Failed - 10/11/2023 5:45 AM Failed - Lipid panel in past 12 months LDL Date Value Ref Range Status 01/26/2023 54 0 - 130 mg/dL Final Passed - Visit with relevant provider in past 18 months or upcoming 90 days Recent Visits Date Type Provider Dept 05/05/23 Office Visit Camilo Chisholm MD [facility] [place] 08/07/22 Office Visit Camilo Chisholm MD [facility] [place] Showing recent visits within past 548 days and meeting all other requirements Future Appointments No visits were found meeting these conditions. Showing future appointments within next 90 days and meeting all other requirements Passed - CMP on record in past 12 months SODIUM Date Value Ref Range Status 05/15/2023 140 136 - 145 mmol/L Final POTASSIUM Date Value Ref Range Status 05/15/2023 4.2 3.5 - 5.1 mmol/L Final CHLORIDE Date Value Ref Range Status 05/15/2023 103 98 - 107 mmol/L Final CO2, VENOUS Date Value Ref Range Status 05/15/2023 31 (H) 22 - 30 mmol/L Final ANION GAP Date Value Ref Range Status 05/15/2023 10.2 <18.0 mmol/L Final GLUCOSE Date Value Ref Range Status 05/15/2023 84 70 - 99 mg/dL Final BUN Date Value Ref Range Status 05/15/2023 20 10 - 20 mg/dL Final CREATININE, BLOOD Date Value Ref Range Status 05/15/2023 0.70 0.60 - 1.00 mg/dL Final BUN/CREATININE RATIO Date Value Ref Range Status 05/15/2023 29 (H) 12 - 20 ratio Final TOTAL PROTEIN Date Value Ref Range Status 05/15/2023 7.1 6.3 - 8.2 g/dL Final ALBUMIN Date Value Ref Range Status 05/15/2023 4.2 3.5 - 5.0 g/dL Final A/G RATIO Date Value Ref Range Status 05/15/2023 1.4 1.0 - 2.2 Final A/G RATIO, SERUM Date Value Ref Range Status 03/05/2023 1.1 Final CALCIUM Date Value Ref Range Status 05/15/2023 9.1 8.7 - 10.5 mg/dL Final T BILI Date Value Ref Range Status 05/15/2023 0.3 0.2 - 1.2 mg/dL Final SGOT (AST) Date Value Ref Range Status 05/15/2023 28 5 - 34 U/L Final SGPT (ALT) Date Value Ref Range Status 05/15/2023 36 0 - 55 U/L Final ALKALINE PHOSPHATASE Date Value Ref Range Status 05/15/2023 58 40 - 150 U/L Final GFR, EST. NONAFRICAN Date Value Ref Range Status 05/15/2023 >60 >=60 Final GFR, EST. Date Value Ref Range Status 05/15/2023 >60 >=60 Final GFR, ESTIMATED Date Value Ref Range Status 05/15/2023 >60 >=60 Final Comment: Creatinine Clearance is the preferred criteria for selecting drug dose adjustments in renally impaired patients. The GFR is provided as additional pertinent clinical information. GFR is reported in mL/min/1.73 sq m. Calculation based on the Chronic Kidney Disease Epidemiology Collaboration (CKD- EPI) equation refitwithout adjustment for race. IS THE PATIENT REQUIRED TO BE FASTING? Date Value Ref Range Status 05/15/2023 No Final documented in this encounter Plan of Treatment Not on file documented as of this encounter Visit Diagnoses Diagnosis Palpitations documented in this encounter Care Teams Insight Leader Relationship Specialty Start Date End Date Michael Li MD [address] [place] [address] PCP - General Family Medicine 03/31/22 Camilo Chisholm MD Applications Intern Cardiovascular Disease - Cardiology 03/21/22 documented as of this encounter
--- OUTSIDE RECORDS SUMMARY | 2024-10-26 10:45 | XMS_ITS | Encounter Summary ---
Author Organization [facility] Address [address] [facility] [place] [address] Phone Care Team Providers Care Floor Care Specialist Name Role Phone Camilo Chisholm MD [facility] Michael Erazo MD Primary Care Provider [phone] Encounter Details Date Type Department Care Team (Late st Contact Info) Description 05/12/2023 Transcribe Orders [facility] Central Scheduling [address] [place] [address] Chiquita Benavidez APRN, CYBER OPERATOR [address] [address] Social History Tobacco Use Types Packs/Day Years [...] on filedocumented in this encounter Care Teams Floor Care Specialist Relationship Specialty Start Date End Date Michael Li MD [address] [place] [address] PCP - General Family Medicine 03/31/22 Camilo Chisholm MD Passenger Screener Cardiovascular Disease - Cardiology 03/21/22 documented as of this encounter
--- OUTSIDE RECORDS SUMMARY | 2024-10-26 10:46 | XMS_ITS | Referral Summary ---
Author Organization [facility] [address] Address [address] [place] [address] Phone Care Team Providers Care Canal Superintendent Name Role Phone Pepe Cross MD Unavailable [phone] Everardo CHANDLER MD, Román Pérez Unavailable [phone] Román Acosta MD Unavailable [phone] Maynor العراقي MD Unavailable [phone] Corazon Wellington MD Unavailable [phone] Michael Li MD Primary Care Provider [phone] Allergies Active Allergy Reactions Criticality Noted Date Comments Amoxicillin Hives Low Reaction: Hives, , Atorvastatin Muscle pain Medium 02/20/2020 Buspirone Other (See comments) Low Reaction: dry mouth, Medications ezetimibe (ZETIA) 10 mg tablet TK 1 T PO D 04/30/20 20 Active rosuvastatin (CRESTOR) 5 mg tablet TK 1 T PO Q WEEK ON Mondays04/30/20 20 Active tiZANidine (ZANAFLEX) 4 mg tabletIndicati ons: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,Musc le spasm of shoulder region Take 0.5-1 tablets (2-4 mg total) by mouth every 8 (eight) hours as needed (Right shoulder and neck muscle spasm) 30 tablet 1 12/12/19 22 Active turmeric root extract 500 mg capsuleIndicat ions: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,Lauren l agenesis and dysgenesis,Sin gle kidney Take 500 mg by mouth 3 (three) times a day 60 capsule 1 12/12/19 22 Active fluticasone propionate (FLONASE) 50 mcg/actuation nasal sprayIndicatio ns:Chronic rhinitis Administer 2 sprays into each nostril daily 30 mL 11 12/24/19 22 Active traMADoL (ULTRAM) 50 mg tablet Take 1 tablet (50 mg total) by mouth 2 (two) times a day as needed for pain 30 tablet 03/05/20 22 Active dextroamphetam ine-amphetamin e XR (ADDERALL XR) 5 mg 24 hr capsule Take 1 capsule (5 mg total) by mouth every morning 02/03/20 23 Active gabapentin (NEURONTIN) 300 mg capsule Take 1 capsule (300 mg total) by mouth 06/12/20 22 Active azelastine (ASTELIN) 137 mcg (0.1 %) nasal sprayIndicatio ns:Chronic rhinitis Administer 2 sprays into each nostril 2 (two) times a day Use in each nostril as directed 30 mL 11 11/08/19 20 021 Discontinued aspirin 325 mg tablet Take 1 tablet (325 mg total) by mouth daily 14 tablet 07/25/20 20 021 Discontinued Active Problems Problem Noted Date Diagnosed Date Ischemic heart 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 (CMS/HCC) 04/10/2020 Overview (12/11/2021): (+) coronary calcium score04/13/2020 LAD artery Coronary calcium score = 11 This represents mild moderate coronary plaque burden Encounter to discuss test results 12/27/2017 Overview (12/27/2017): Images from the original note were not included. 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 Overview (11/06/2016): Single kidney Resolved Problems Problem Noted Date Diagnosed Date Resolved Date Trigger finger, left middle finger 04/19/2021 12/11/2021 Trigger middle finger of left hand 04/01/2021 12/11/2021 Coronavirus infection 08/14/20202021 Aftercare following surgery 07/23/2020 12/05/2020 Acute medial meniscus tear of left knee 06/25/2020 12/05/2020 Overview (06/25/2020): Added automatically from request for surgery [id number] Wound dehiscence 04/20/2020 12/05/2020 Hip pain, left 03/02/2020 12/05/2020 Left knee pain 03/02/2020 12/05/2020 Ulnar impingement syndrome o f left upper extremity 11/08/2019 12/05/2020 Tremor 08/24/2018 12/05/2020 Chronic rhinitis 08/24/2018 12/05/2020 Acquired trigger finger of r ight middle finger 06/15/2018 12/05/2020 Overview (06/15/2018): Referral to Dr. Mcgee 06/15/18 Assessment & Plan (03/01/2019 3:15 PM CDT): Injection today See procedure note Return as needed Assessment & Plan (07/15/2018 3:02 PM QUIRK SANDER): Catching/triggering/painful intermittently, gradually worsening Steroid injection today per procedure note Return PRN Anxiety 02/27/2016 12/05/2020 Overview (11/07/2016): Anxiety Abnormal involuntary movement 07/05/2014 12/05/2020 Overview (11/07/2016): Abnormal involuntary movement Skin sensation disturbance 07/05/2014 0 11/08/2019 Overview (11/07/2016): Skin sensation disturbance Sacroiliac joint pain 05/07/20122020 Overview (11/06/2016): SI (sacroiliac) pain Fatigue 05/07/2012 11/08/2019 Overview (11/06/2016): Tiredness Lightheadedness 05/07/2012 11/08/2019 Overview (11/07/2016): Dizziness - light-headed Vitamin D deficiency 05/07/2012 021 Overview (11/07/2016): Vitamin d deficiency Immunizations Immunization Administration Dates Next Due Influenza, Quadrivalent, Tess l Culture-based MDCK, Preservative Free, Antibiotic Free, Intramuscular 08/02/2020 Influenza, Quadrivalent, Split, Intramuscular Influenza, Split 05/23/2013,05/07/2012 Influenza, Trivalent, IM (MDV) 05/30/2015,2013 Tdap 08/02/2020,05/07/2012 ZOSTER Recombinant 08/02/2019 Social History Tobacco Use Types Packs/Day Years Used Date Smoking Tobacco: Former Smokeless Tobacco: Never Tobacco Cessation:Counseling Given: Yes Alcohol Use Standard Drinks/Week Comments Yes 4 (1 standard drink = 0.6 oz pur e alcohol) occasional/social PHQ-2 Answer Date Recorded PHQ-2 Total Score (If total score is 3 or more points, staff should administer the PHQ-9) 0 12/11/2021 Comments No Sex and Gender Information Value Date Recorded Sex Assigned at Not on file Legal Sex Female 3:58 PM QUIRK SANDER Gender Identity Female 03/02/2020 7:16 AM CDT Sexual Orientation Straight 03/02/2020 7: 16 AM CDT Last Filed Vital Signs Vital Sign Reading Time Taken Comments Blood Pressure 102/68 03/05/2022 11:38 AM CDT Pulse 89 03/05/2022 11:38 AM CDT Temperature 36.5 C (97.7 F) 03/05/2022 11:38 AM CDT Respiratory Rate 18 03/05/2022 11:38 AM CDT Oxygen Saturation 98% 03/05/2022 11:38 AM CDT Inhaled Oxygen Concentration - - Weight 63.3 kg (139 lb 9.6 oz) 03/05/2022 11:38 AM CDT Height 162.6 cm (5' 4 ) 03/05/2022 11:38 AM CDT Body Mass Index 23.96 03/05/2022 11:38 AM CDT Plan of Treatment Not on file Procedures Procedure Name Priority Date/Time Associated Diagnosis Comments HEPATITIS C ANTIBODY Routine 08/23/2018 2:24 PM QUIRK SANDER COLONOSCOPY 12/15/2017 11:42 AM CDT THINPREP IMAGING PAP REFLEX HPV MRNA E6/E7 Routine 07/07/2016 10:12 AM QUIRK SANDER from Last 3 Months or Most Recently Relevant to Health Maintenance Results * Hepatitis C antibody (08/23/2018 2:24 PM QUIRK SANDER) Hep C Ab NON-REACTI VE NON-REACTI VE [facility] - [place] SIGNAL TO CUT-OFF 0.01 <1.00 [facility] [place] 08/23/2018 2:24 PM QUIRK SANDER 08/23/2018 2:25 PM QUIRK SANDER Narrative Resulting Agency Comment Performing Organization Information: Site ID: [id number] Name: [facility] Address: [id number] [place] [address] [facility] [place] [address] Director: Anthony Tyler D.O., MPH us Nishi Olsen MD LAB MICROBIOLOGY - GENERAL ORDERABLES Final Result XI [facility]NO[facility] - [facility] * COLONOSCOPY (12/15/2017 11:42 AM CDT) Anatomical Region Laterality Modality Other Narrative Procedure Note Corazon Wellington MD - 12/15/2017 11:42 AM CDT [facility] Patient Name: Hina Garcia Procedure Date: 12/15/2017 11:42 AM Date of : 1965 Admit Type: Outpatient Age: 52 Gender: Female Attending MD: Corazon Wellington M.D. Room: [facility] ENDOSCOPY CAPSULE Note Status: Finalized Patient Profile: 52 WF, no family h/o colon cancer, screening. Procedure: Colonoscopy Indications: Screening for colorectal malignant neoplasm, This is the patient's first colonoscopy Referring MD: Nishi Olsen MD Providers: Corazon Wellington M.D. Impression: - The entire examined colon is normal. - No specimens collected. Recommendation: - Discharge patient to home. - Continue present medications. - Repeat colonoscopy in 10 years for screeningpurposes. Medicines: Monitored Anesthesia Care Complications: No immediate complications. Estimated Blood Loss: Estimated blood loss: none. Procedure: Pre-Anesthesia Assessment: - Prior to the procedure, a History and Physical was performed, and patient medications and allergieswere reviewed. The patient's tolerance of previous anesthesia was also reviewed. The risks and benefitsof the procedure and the sedation options and riskswere discussed with the patient. All questions were answered, and informed consent was obtained. Prior Anticoagulants: The patient has taken no previous anticoagulant or antiplatelet agents. ASA Grade Assessment: II - A patient with mild systemicdisease. After reviewing the risks and benefits, the patientwas deemed in satisfactory condition to undergo the procedure. The benefits, risks and alternatives of theprocedure and sedation were discussed and informed consent was obtained. All questions were answered. Please referto the signed informed consent document in the medical record. The scope was passed under direct vision.The Pediatric Colonoscope [id number]-[id number] was introduced through the anus and advanced to the the cecum, identified by appendiceal orifice andileocecal valve. The colonoscopy was performed without difficulty. The patient tolerated the procedurewell. The quality of the bowel preparation was good. Findings: The perianal and digital rectal examinations were normal. the cecum was normal. The colon (entire examined portion) appeared normal. No polyps and no mass lesions. The rectum was normal. Retroflexion in the rectum showed small internal hemorrhoids. Electronically signed by Corazon Wellington M.D. Corazon Wellington M.D. 12/15/2017 12:16:41 PM Number of Addenda: 0 Note Initiated On: 12/15/2017 11:42 AM Procedure Code(s): --- Professional --- 95704, Colonoscopy, flexible; diagnostic, including collection of specimen(s) by brushing or washing, when performed (separateprocedure) Diagnosis Code(s): --- Professional --- Z12.11, Encounter for screening for malignant neoplasm of colon CPT copyright 2017 [employer]. All rights reserved. The codes documented in this report are preliminary and upon account technician reviewmay be revised to meet current compliance requirements. Recognized by the [employer] for promoting quality in endoscopy Corazon Wellington MD ENDOSCOPY PROCEDURES Final Result * ThinPrep Imaging Pap Reflex HPV mRNA E6/E7 (07/07/2016 10:12 AM QUIRK SANDER) SOURCE: SEE NOTE [facility] Comment:Cervix, Endocervix CLINICAL INFORMATION: SEE NOTE [facility] Comment:Information not prov ided LMP SEE NOTE [facility] Comment:NONE GIVEN Previous Pap SEE NOTE [facility] Comment:NONE GIVEN Prev. Bx SEE NOTE [facility] Comment:NONE GIVEN Pap, specimen adequacy SEE NOTE [facility] Comment: SATISFACTORY FOR EVALUATION Partially obscuring inflammation Age and/or menstrual status not provided HPV interp SEE NOTE [facility] Comment: Negative for intraepithelial lesion or malignancy. Atrophic pattern; predominantly parabasal cells Lactobacillus species SEE NOTE [facility]ULTS Comment: This Pap test has been evaluated with computer assisted technology. Effervescent Salts Compounder SEE NOTE [facility] RESULTS Comment: SHARON, CT(ASCP) CT screening location: [place] [address] [address] [place] [address] Review vocational nurse SEE NOTE [facility] H[facility]ORICAL RESULTS Comment: PCM, CT(ASCP) CT screening location: [place] [address] [place] [address] Test performed at [facility] [address] Director: GRETCHEN MOODY MD 07/07/2016 10:1 2 AM QUIRK SANDER Nishi Olsen MD LAB PATHOLOGY ORDERABLES F inal Result [facility] RESULTS from Last 3 Months or Most Recently Relevant to Health Maintenance Insurance [employer] [place] [employer] [place] [facility] Advance Directives For more information, please contact: [phone] Documents on File Type Date Recorded Patient Prizer Hand Expl anation ADVANCE DIRECTIVE 12/11/2021 POWER OF A TTORNEY-MEDICAL ADVANCE DIRECTIVE 05/07/2012 POWER OF A TTORNEY-MEDICAL * Full Code (Latest Code Status on File) Date Activated Date Inactivated Comments 12/15/2017 11:34 AM 12/15/2017 3:09 PM Care Teams Canal Superintendent Relationship Specialty Start Date End Date Michael Li MD [address] [place] [address] PCP - General Family Practice 07/07/24 Pepe Cross MD [address] [address] Obstetrics and Gynecology 08/24/17 Román Mcgee III, MD [address] [address] Surgeon Plastic Surgery 08/24/18 Román Acosta MD [address] [address] Surgeon Orthopedic Surgery 12/05/20 Maynor العراقي MD [address] [address] Consulting Physician Cardiology 12/05/20 Corazon Wellington MD [address] [address] Consulting Physician Gastroenterology 12/05/20
--- OUTSIDE RECORDS SUMMARY | 2024-10-26 10:46 | XMS_ITS | Encounter Summary ---
Author Organization [facility] Address [address] [facility] Attn: Epic Prelude ADT [place] [address] Care Team Providers Care Neurological Physiotherapist Name Role Phone Unavailable Primary Care Provider Unavailabl e Encounter Details Date Type Department Care Team (Late st Contact Info) Description 08/30/1991 Outpatient Historical Kolby Benitez MD NO ADDRESS ON FILE Social History Tobacco Use Types Packs/Day Years Used Date Smoking Tobacco: Never Assessed Comments Unknown Sex and Gender Information Value Date Recorded Sex Assigned at Not on file Legal 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
--- OUTSIDE RECORDS SUMMARY | 2024-10-26 10:46 | XMS_ITS | Clinical Summary ---
Author Organization [facility] Address [address] [facility] Attn: Epic Prelude ADT [place] [address] Care Team Providers Care Labor Training Manager Name Role Phone Unavailable Primary Care Provider Unavailabl e Social History Tobacco Use Types Packs/Day Years Used Date Smoking Tobacco: Never Assessed Comments Unknown Sex and Gender Information Value Date Recorded Sex Assigned at Not on file Legal Sex Female 4:09 AM FRONT END ALIGNMENT SPECIALIST Gender Identity Not on file Sexual Orientation Not on file Plan of Treatment Health Maintenance Due Date Last Done Comments DTAP/TDAP/TD VACCINES (1 - Tdap) 1985 HEPATITIS B VACCINES (1 of 3 - 19+ 3-dose series) 06/03 PAP SMEAR 1987 CERVICAL CANCER SCREENING 1996 HPV/Cotest 1996 PAP SMEAR 1996 BREAST CANCER SCREENING 2006 COLORECTAL SCREENING 2011 Colorectal Cancer Screening 2011 FIT-DNA Q 3 years 2011 FIT/FOBT Q 1 year 2011 Flex Sig/CT Colonography Q 5 years 2011 ZOSTER VACCINE (1 of 2) 2016 INFLUENZA VACCINE (#1) 2024
--- OUTSIDE RECORDS SUMMARY | 2024-10-26 10:46 | XMS_ITS | Encounter Summary ---
Author Organization [facility] Address [address] [address] Phone Care Team Providers Care Welding Machine Operator Friction Name Role Phone Nishi Olsen MD Primary Care Provider [phone] Pepe Cross MD Unavailable [phone] Everardo CHANDLER MD, Román Pérez Unavailable [phone] Bel Romero Unavailable [phone] Román Acosta MD Unavailable [phone] Maynor العراقي MD Unavailable [phone] Corazon Wellington MD Unavailable [phone] Unknown, Notinfile Primary Care Provider Unavail able Michael Li MD Primary Care Provider [phone] Encounter Details Date Type Department Care Team (Late st Contact Info) Description 08/17/2017 Orders Only [facility] [address] [place] [address] Nishi Olsen MD [address] [place], [place] [id number] Social History Tobacco Use Types Packs/Day Years Used Date Smoking Tobacco: Former Cigarettes Q uit: 08/03/1983 Alcohol Use Standard Drinks/Week Comments Yes 0 (1 standard drink = 0.6 oz pur e alcohol) Comments Unknown Sex and Gender Information Value Date Recorded Sex Assigned at Not on file Legal Sex Female 3:58 PM BED BUG EXTERMINATOR Gender Identity Female 03/02/2020 7:16 AM CDT Sexual Orientation Straight 03/02/2020 7: 16 AM CDT documented as of this encounter Plan of Treatment Not on file documented as of this encounter Procedures Procedure Name Priority Date/Time Associated Diagnosis Comments SCAN - RADIOLOGY/IMAGING 08/17/2017 11:55 AM BED BUG EXTERMINATOR documented in this encounter Results * SCAN - RADIOLOGY/IMAGING (08/17/2017 11:55 AM BED BUG EXTERMINATOR) Anatomical Region Laterality Modality Other us Nishi Olsen MD Final Resu lt documented in this encounter Visit Diagnoses Not on filedocumented in this encounter Additional Health Concerns Infection Onset Date Last Indicated Resolved Time COVID: Recovered Comment:Patient meets COVID recovered criteria. Positive lab results from 07/03. JACOB Ng 07/23/2020 07/23/2020 11/21/19 21 3:05 AM CDT documented as of this encounter Care Teams Welding Machine Operator Friction Relationship Specialty Start Date End Date Nishi Olsen MD PCP - General 10/31/16 12/01/22 Unknown, Notinfile PCP - General 01/31/23 07/06/24 Michael Li MD [address] [place] [address] PCP - General Family Practice 07/07/24 Pepe Cross MD [address] [place] [address] Obstetrics and Gynecology 08/24/17 Román Mcgee III, MD [address] [place] [address] Surgeon Plastic Surgery 08/24/18 Bel Romero PA [address] [place] [address] Orthopedic Surgery 07/25/20 12/04/20 Román Acosta MD [address] [place] [address] Surgeon Orthopedic Surgery 12/05/20 Maynor العراقي MD [address] [place] [address] Consulting Physician Cardiology 12/05/20 Corazon Wellington MD [address] [place] [address] Consulting Physician Gastroenterology 12/05/20 documented as of this encounter
--- OUTSIDE RECORDS SUMMARY | 2024-10-26 10:46 | XMS_ITS | Encounter Summary ---
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
--- OUTSIDE RECORDS SUMMARY | 2024-10-26 10:46 | XMS_ITS | CONTINUITY OF CARE DOCUMENT ---
Author Name yana millan Address Unknown Organization [facility] Address [address] [place] [address] [address] [place] [address] Phone [phone] Care Team Providers Care Primary Clinician Name Role Phone Maynor العراقي MD Unavailable CLEMENTE MARSH MD Unavailable CLEMENTE MARSH MD Unavailable PROBLEMS Condition Status Date Provider Notes SARS-associated coronavirus, 07/2020 active Maynor العراقي MD Cardiovascular screening completed - Maynor العراقي MD Coronary atherosclerosis, CA C score 11 in LAD 03/2020 active Maynor العراقي MD Family Hx heart disease active Maynor Slaughter ra, MD Familial hypercholesterolemia active Maynor العراقي MD Tremor, on propanalol active Maynor العراقي MD Hyperglycemia active Maynor العراقي MD ENCOUNTERS Date Type Provider Location Encounter Diag nosis - In-person encounter Office Visit Maynor العراقي MD [facility] - In-person encounter Office Visit Maynor العراقي MD TeleHealth - In-person encounter Office Visit Maynor العراقي MD [facility] Cardiovascular screeningCoronary atherosclerosis, CAC score 11 in LAD 03/2020Family Hx heart diseaseFamilial hypercholesterolemiaTremor, on propanalolHyperglycemia VITAL SIGNS Date Observation Value Provider Body Mass Index (Ratio) 24.03 kg/m2 Emerson العراقي MD blood pressure, diastolic 70 mm[Hg] Rh allie Mills blood pressure, systolic 108 mm[Hg] Rho nicolle Mills oxygen saturation, oximetry 98 % Carly Mills pulse rate 65 /min Carly Mills blood pressure, resting No Rhon dayanara Mills respiratory rate E&M 18 /min Carly Mills blood pressure, cuff size regular Jarvis Mills weight E&M 140 [lb_av] Carlyjeremi Mills height E&M 64 [in_i] Carly Mills Body Mass Index (Ratio) 25.74 kg/m2 Emerson العراقي MD blood pressure, resting No Dennysandrew Boswell blood pressure, diastolic 70 mm[Hg] Kr ismendoza Hinesby blood pressure, systolic 132 mm[Hg] Kri stwes Hinesby blood pressure, cuff size regular Kr lavonne Boswell oxygen saturation, oximetry 98 % Dorothy Hinesby pulse rate 77 /min Dorothy Elbert respiratory rate E&M 19 /min Dorothy Hinesby height E&M 64 [in_i] Dorothy Hinesby weight E&M 150 [lb_av] Dorothy Hinesby ALLERGIES Allergy Name Onset Date Reaction Criticality Status LIPITOR leg myalgias High Criticality active CRESTOR leg myalgias High Criticality active AMOXICILLIN Low Criticality active RESULTS Date Observation Value Provider Reference Range Interpretation Location 7 cholesterol, non-HDL, total 114 MG/DL (CALC) [facility] <130 Normal 7 cholesterol/HDL ratio, serum, percent 2.6 (calc) [facility] <5.0 Normal 7 LDL cholesterol, serum 97 MG/DL (CALC) [facility] Normal 7 triglyceride, serum, fasting 84 mg/dL [facility] <150 Normal 7 HDL cholesterol, serum 71 mg/dL [facility] > OR = 50 Normal 7 cholesterol, serum 185 mg/dL [facility] <200 Normal 7 cholesterol, non-HDL, total 89 MG/DL (CALC) [facility] <130 Normal 7 cholesterol/HDL ratio, serum, percent 2.2 (calc) [facility] <5.0 Normal 7 LDL cholesterol, serum 76 MG/DL (CALC) [facility] Normal 7 triglyceride, serum, fasting 58 mg/dL [facility] <150 Normal 7 HDL cholesterol, serum 75 mg/dL [facility] > OR = 50 Normal 7 cholesterol, serum 164 mg/dL [facility] <200 Normal 7 hemoglobin A1C, blood, as % of total hemoglobin 5.5 % OF TOTAL HGB [facility] <5.7 Normal 7 LDL Size 221.7 Angstrom [facility] >222.9 Low 7 LDL particle concentration (lipoprotein panel), risk categories correspond to NCEP categories for LDL cholesterol (on a percentile equivalent basis) 1706 nmol/L [facility] <1138 High 7 cholesterol, non-HDL, total 193 MG/DL (CALC) [facility] <130 High 7 cholesterol/HDL ratio, serum, percent 4.1 calc [facility] <5.0 7 LDL cholesterol, serum 167 MG/DL (CALC) [facility] <100 High 7 triglyceride, serum, fasting 128 mg/dL [facility] <150 7 HDL cholesterol, serum 62 mg/dL [facility] > OR = 50 7 cholesterol, serum 255 mg/dL [facility] <200 High HISTORY OF MEDICATION USE Medication Status Instructions Dates Provider Indications Com ments ezetimibe 10 mg tablet active TAKE 1 TABLET BY MOUTH DAILY Maynor العراقي MD ezetimibe 10 mg tablet completed 1 tablet once a day - Damaso Levin rosuvastatin 5 mg tablet completed 1 tablet once a week - Jaymie Starkey fluticasone propionate 50 mcg/actuation spray,suspensio n active Use 2 spray into both nostrils once a day Dorothy Boswell #48, 90 days supply, Prescribed by CLEMENTE MARSH, Filled 11/08/2019 azelastine 137 mcg (0.1 %) aerosol,spray active Instill 2 spray into both nostrils twice a day as directed Dorothy Boswell #30, 25 days supply, Prescribed by CLEMENTE MARSH, Filled 11/08/2019 PROPRANOLOL HCL 20 MG ORAL TABLET completed take one tablet by mouth twice daily - Carly Mills #180, 90 days supply, Prescribed by CLEMENTE MARSH, Filled 11/09/2019 MELOXICAM 15 MG ORAL TABLET completed take one tablet by mouth once daily - Carly Mills #14, 14 days supply, Filled 04/05/2020 DICLOFENAC SODIUM 1 % TRANSDERMAL GEL active Apply 2 gram four times a day Dorothy Boswell #100, 7 days supply, Prescribed by DEVIKA LINDA, Filled 04/05/2020 tramadol 50 mg tablet active Take 1 tablet by mouth as needed Dorothy Boswell #30, 15 days supply, Filled 04/06/2020 SOCIAL HISTORY Date Observation Value Provider social history E&M Smoking Histo ry: P amalia has never smoked. Lolis Arellano NP social history reviewed E&M revi ewed - no changes required Lolis Arellano NP social history reviewed E&M revi ewed - no changes required Maynor العراقي MD social history E&M S moking History: P amalia has never smoked. Maynor العراقي MD smoking status Never smoker Maynor blood MD number of grandchildren Maynor العراقي MD social history reviewed E&M revi ewed - no changes required Maynor العراقي MD FUNCTIONAL STATUS Date Observation Value Provider HRA, CV Assess/Plan, Angina (inactive) Management Plan continue current therapy Lolis Arellano [facility] HRA, CV Assess/Plan, Angina (inactive) Management Plan continue current therapy Maynor العراقي MD FAMILY HISTORY Family Member Condition Full Sister Family History of Hy perlipidemia: Full Brother Family History of Chiquita ng Cancer: Full Brother Family History of Hy perlipidemia: Full Brother Family History of Di abetes: Mother Family History of Hy pertension: Mother Family History of Di abetes: INSURANCE PROVIDERS Payer name Policy type / Coverage type [place] [employer] party ID [facility] [id number] TREATMENT PLAN Date Name Performer [id number], Lolis Ambrose lily [employer] PROFESSOR [id number], Lolis Ambrose lily [employer]UM[employer] LANGUAGES PROFESSOR [id number],W, L DL 97 i deal LDL <70 r ecommended eating more seafood, cutting fried/fast foods H er updated medication list for this problem includes: Ezetimibe 10 Mg Oral Tablet (Ezetimibe) ..... One tab daily Rosuvastatin Calcium 5 Mg Oral Tablet (Rosuvastatin calcium) ..... One tab weekly on mondays Lolis Adan [facility] [id number],S, T he following medications were removed from the medication list: Propranolol Hcl 20 Mg Oral Tablet (Propranolol hcl) ..... Take one tablet by mouth twice daily Lolis Adan [facility] Cardiology: L DL 97 i deal LDL <70 r ecommended eating more seafood, cutting fried/fast foods H er updated medication list for this problem includes: Ezetimibe 10 Mg Oral Tablet (Ezetimibe) ..... One tab daily Rosuvastatin Calcium 5 Mg Oral Tablet (Rosuvastatin calcium) ..... One tab weekly on mondays Lolis Adan [facility] Cardiology: T he following medications were removed from the medication list: Propranolol Hcl 20 Mg Oral Tablet (Propranolol hcl) ..... Take one tablet by mouth twice daily Lolis Adan [facility] Telehealth, lipids i n 6 months before f/u: H er updated medication list for this problem includes: Ezetimibe 10 Mg Oral Tablet (Ezetimibe) ..... One tab daily Rosuvastatin Calcium 5 Mg Oral Tablet (Rosuvastatin calcium) ..... One tab weekly on mondays Maynor العراقي MD Telehealth, lipids i n 6 months before f/u: H er updated medication list for this problem includes: Propranolol Hcl 20 Mg Oral Tablet (Propranolol hcl) ..... Take one tablet by mouth twice daily Maynor العراقي MD Telehealth, lipids in 6 months b efore f/u Maynor العراقي MD Telehealth, lipids in 6 months b efore f/u Maynor العراقي MD Cardiology: H er updated medication list for this problem includes: Propranolol Hcl 20 Mg Oral Tablet (Propranolol hcl) ..... Take one tablet by mouth twice daily Maynor العراقي MD Cardiology Maynor Barragan Cardiology: H er updated medication list for this problem includes: Ezetimibe 10 Mg Oral Tablet (Ezetimibe) ..... One tab daily Rosuvastatin Calcium 5 Mg Oral Tablet (Rosuvastatin calcium) ..... One tab weekly on mondays C HOL: 255 (04/29/2020) LDL: 167 MG/DL (CALC) (04/29/2020) HDL: 62 (04/29/2020) T (04/29/2020) Maynor العراقي MD Cardiology: L DL 205 in the past l eg myalgias on daily crestor and 3x weekly lipitor c modesta cardio IQ r echallenge with zetia an once weekly crestor Maynor العراقي MD Cardiology: c modesta A1c Maynor العراقي MD Cardiology: b ashish had [place] in his 30s Maynor العراقي MD Cardiology: C T coronary calcium score 11 in LAD in 03/2020, mild risk p t has likely heterozygous familial hypercholesterolemia. hx of LDL 205 in the past. L DL goal <70, intolerant of daily crestor and 3x weekly lipitor in the past d/t leg myalgias r echallenge with once weekly crestor and zetia after results of cardio IQ come in Her updated medication list for this problem includes: Propranolol Hcl 20 Mg Oral Tablet (Propranolol hcl) ..... Take one tablet by mouth twice daily Maynor العراقي MD Date Name LIPID PANEL LIPID PANEL LIPID PANEL LIPID PANEL LIPID PANEL HEMOGLOBIN A1c CardioIQ Advanced Li pid Panel with Inflammation ([facility]) Complete Echo CT, Coronary Calcium Score HISTORY OF PROCEDURES Procedure Date Procedure Name Provider Procedure Notes S tatus EKG Maynor العراقي MD complet ed CT- Coronary CA score Maynor العراقي MD completed
--- OUTSIDE RECORDS SUMMARY | 2024-10-26 10:46 | XMS_ITS | Clinical Summary ---
Author Organization [facility] Address [address] [place] [address] Care Team Providers Care Crane Operator Name Role Phone Michael Li MD Primary Care Provider [phone] Source Comments [facility],non-owned Affiliates and Associated Physician Practices is amultiple site organization consisting of ambulatory clinics and hospital sitesin [place], [place], [place] and [place]. This disclosure is being madepursuant to the Care Everywhere program and may not contain all information available regarding this patient. Last updated 18.[facility] Allergies Active Allergy Reactions Criticality Noted Date Comments Amoxicillin Urticaria Medium 01/28/2019 Reaction: Hives, , Buspirone Other Low 03/27/2022 Reaction: dry mouth, Reaction: dry mouth, Medications * Be aware that medications may not be up to date on this document. Alwaysverify current medications with the patient. Medication Sig Dispensed Refills Start Date End Date Status ezetimibe (Zetia) 10 MG tablet ezetimibe 10 mg tablet 06/14/2021 Active fluticasone propionate (Flonase) 50 MCG/ACT nasal spray Acme 2 (two) sprays into the nose once daily 12/23/2021 Active gabapentin (Neurontin) 300 MG capsule Take 1 (one) capsule by mouth 2 times daily 06/12/2022 Active rosuvastatin (Crestor) 5 MG tablet Take 1 (one) tablet by mouth once daily 07/14/2022 Active tiZANidine (Zanaflex) 4 MG tablet Take 0.5 (one-half) tablet to 1 (one) tablet by mouth 12/11/2021 Active traMADol (Ultram) 50 MG tablet Take 1 (one) tablet by mouth 2 times daily as needed For pain. 2022 Active COLLAGEN PO Take 2 Scoops by mouth once daily Active Active Problems Problem Noted Date Diagnosed Date Multiple benign melanocytic nevi of upper and lower extremities and trunk 08/13/2022 Solar lentiginosis 08/13/2022 Seborrheic keratosis 08/13/2022 Hollis angioma 08/13/2022 Coronavirus infection 08/14/2020 Tremor 04/10/2020 Ischemic heart disease due to coronary artery ob struction 04/10/2020 Overview (08/13/2022): (+) coronary calcium score04/13/2020 LAD artery Coronary calcium score = 11 This represents mild moderate coronary plaque burden Hyperglycemia 04/10/2020 Family history of ischemic h eart disease and other diseases of the circulatory system 04/10/2020 Familial hypercholesterolemia 04/10/2020 Atherosclerosis of coronary artery 04/10/2020 Encounter to discuss test results 12/27/2017 Overview (08/13/2022): Images from the original note were not included. 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 (08/13/2022): Single kidney Multiple-type hyperlipidemia 05/07/2012 Overview (08/13/2022): Mixed hyperlipidemia Encounters Date Type Department Care Team Description 09/08/2024 2:00 PM OCEAN FREIGHT MANAGER Office Visit [facility] [address] [place] [address] Ishmael Vallejo MD IPMN (intraductal papillary mucinous neoplasm) (Primary Dx) 09/08/2024 Travel from Last 3 Months Family History Medical History Relation Name Comments Cancer - Skin, Non Melanoma Father Cancer - Skin, Melanoma Mother Relation Name Status Comments Father Mother Social History Tobacco Use Types Packs/Day Years Used Date Smoking Tobacco: Never Smokeless Tobacco: Never Alcohol Use Standard Drinks/Week Comments Yes 8 (1 standard drink = 0.6 oz pur e alcohol) daily Sex and Gender Information Value Date Recorded Sex Assigned at Not on file Gender Identity Not on file Sexual Orientation Not on file Last Filed Vital Signs Vital Sign Reading Time Taken Comments Blood Pressure 120/73 09/08/2024 1:55 PM OCEAN FREIGHT MANAGER Pulse 62 09/08/2024 1:55 PM OCEAN FREIGHT MANAGER Temperature 36.6 C (97.8 F) 09/08/2024 1:55 PM OCEAN FREIGHT MANAGER Respiratory Rate 13 05/27/2023 3:25 PM CDT Oxygen Saturation 100% 09/08/2024 1:55 PM OCEAN FREIGHT MANAGER Inhaled Oxygen Concentration - - Weight 60.3 kg (133 lb) 09/08/2024 1:55 PM OCEAN FREIGHT MANAGER Height 162.6 cm (5' 4 ) 09/08/2024 1:55 PM OCEAN FREIGHT MANAGER Body Mass Index 22.83 09/08/2024 1:55 PM OCEAN FREIGHT MANAGER Plan of Treatment Upcoming Encounters Date Type Department Care Team (Late st Contact Info) Description 11/25/2024 5:30 PM CDT Appointment [facility] [address] [place] [address] Ishmael Vallejo MD [address] [facility] [address] [facility] [place] [id number] Health Maintenance Due Date Last Done Comments COLOGUARD (AGES 45-75) - COLON CA SCREENING 1966 COLON MONITORING 1966 COLONOSCOPY - COLON CA SCREENING 1966 CT COLONOGRAPHY - COLON CA SCREENING 1966 Colorectal Cancer Screening 1966 FIT - COLON CA SCREENING 1966 FLEX SIG - COLON CA SCREENING 1966 PAP SMEAR 1966 HIV SCREENING 1981 HEPATITIS C SCREENING 06/12/1984 DTAP/TDAP/TD VACCINES (1 - Tdap) 1985 HEPATITIS B VACCINE (1 of 3 - 19+ 3-dose series) 1985 PNEUMOCOCCAL VACCINE 50+ (1 of 1 - PCV) 2016 ZOSTER VACCINE (1 of 2) 2016 COVID-19 VACCINE ( season) 2024 INFLUENZA VACCINE (#1) 2024 , 05/30/2016, 05/30/2015, Additional history exists DEPRESSION SCREENING 08/03/2024 MAMMOGRAM 12/03/2025 12/04/2023, 11/2022, 11/22/2021 HIB VACCINE Aged Out No longer eligi ble based on patient's age to complete this topic HPV VACCINE Aged Out No longer eligi ble based on patient's age to complete this topic MENINGOCOCCAL (Group B) VACCINE SHARED DECISION-MAKING Aged Out No longer eligible based on patient's age to complete this topic MENINGOCOCCAL GROUPS A/C/Y/W VACCINE Aged Out No longer eligible based on patient's age to complete this topic Goals Goal Patient Goal Type Associated Problems Recent Progress Patient-Stated? Author Medication Management General On track( 025 3:11 PM OCEAN FREIGHT MANAGER) Jolly Reid, ELIECER Note: Expected end date: ongoing Interventions: Take all medications as prescribed Let your doctor know right away about any changes in your medications Make sure to request a refill of your medication at least one week prior to your last dose Care Teams Crane Operator Relationship Specialty Start Date End Date Michael Li MD [address] [place] [id number] PCP - General 08/13/22
--- OUTSIDE RECORDS SUMMARY | 2024-10-26 10:46 | XMS_ITS | Data Portability ---
Author Organization [employer], [facility] Address [address] [address] Care Team Providers Care Technicians And Trades Workers Name Role Phone ANICETO MARSH Primary Care Provider Assessment No assessment recorded. Plan of Treatment Reminders Order Date Submit Date Provider Last Modified By Organization Details Last Modified Time Details Appointments None recorded. Lab CBC w/ auto diff 2019 020 [email or web address] Not available 0 14:27:34 vitamin D, 25-hydroxy, total, serum 2019 020 [email or web address] Not available 0 14:27:34 testosteron e, free, serum 2019 020 [email or web address] Not available 0 14:27:34 testosteron e, total, serum 2019 020 [email or web address] Not available 0 14:27:34 Referral physical therapist referral 2019 020 [email or web address] Not available 0 16:59:53 Procedures None recorded. Surgeries None recorded. Imaging None recorded. Medication Orders meloxicam 15 mg tablet 2019 020 [facility][id number], [address] [place], [place], [id number], 0 14:27:34 diclofenac 1 % topical gel 2019 020 [email or web address] [facility] #[id number], [address] [place], [place], [id number], 0 14:27:34 Patient TargetsNo targets recorded. Patient InstructionsNo instructions recorded. Reason for Referral Physical Therapist Referral for Hip pain Referring Physician: Daria Ceballos, [employer] Maintenance Worker, Encounter Date: 04/05/2020 Problems No Known Problems Procedures Surgical History Date Name Laterality Status Provider Name and Address Organization Details Recorded Time 0 Generic Procedure completed [facility] DELGADILL[facility] [address], [place], [address], [facility] 04/12/2020 12:54:54 Imaging Results None recorded. Procedure Notes None recorded. Medical Equipment None Reported. Allergies Allergen ID Allergen Name Allergen Category Reaction Reaction Severity Criticality Documentation Date Start Date Code Code System Note Provider Name and Address Organization Details Recorded Time 31237 amoxicill in medicatio n hives Not available Not available 04/05/2020 723 RxNorm Amy Maldonado [email or web address] 0 13:30:34 70170 Product containin g 3-hydroxy -3-methyl glutaryl- coenzyme A reductase inhibitor (product) medicatio n myalgias (muscle pain) Not available Not available 04/05/2020 18714 009 SNOMED Amy Maldonado [email or web address] 0 13:30:50 Medications Name Sig Start Date Stop Date Status Note LastModified by Organization Details LastModified Time meloxicam 15 mg tablet Take 1 tablet every day by oral route with meals. 2019 active Not Available Not Available Not Avai lable propranolol active Not Available Not A vailable Not Available tramadol active Not Available Not Avai lable Not Available diclofenac 1 % topical gel APPLY 2 GRAMS TO THE AFFECTED AREA(S) BY TOPICAL ROUTE 4 TIMES PER DAY 2019 active Not Available Not Available Not Avai lable Vitals Date Recorded Body height Body mass index (BMI) Body weight Provider Name and Address Organization Details Last Updated DateTime 04/05/2020 162.56 cm 24.9 kg/m2 16110.89 g Amy [facility] 04/05/2020 13:05:09 Social History Question Answer Notes LastModified by [employer] ion Details LastModified Time Tobacco Smoking Status Never Smoker Amy Okeefe SUSAN [employer] - [employer] [facility], [facility] 04/05/2020 13:35:46 What Is Your Level Of Alcohol Consumption? Occasional [email or web address] Information not available 04/05/2020 Marital Status nicole Informatio n not available 04/05/2020 Sex: Unknown Functional Status None recorded. Mental Status None recorded. Family History Nothing Reported. Medical History Condition Response Kidney Cancer Y Arthritis Y High Cholesterol Y Gynecological HistoryNo gynecological history recorded. Obstetrics History GPAL:G 0 P 0 0 0 0 Past Encounters Encounter ID Performer Location Encounter Start Date Encounter Closed Date Diagnosis/Indication Diagnosis SNOMED-CT Code Diagnosis ICD10 Code Diagnosis Note [id number] STACEY DELGADILLO [facility] [address] [facility] [address] [place] SUSAN PETIT [address] 04/05/2020 13:02:37 04/12/2020 16:59:19 Screening procedure 71794013 Z13.9 Z01.812 R53.83 M89.9 M94.9 E55.9 Hip pain 92951220 M25.55 2 Derangemen t of medial meniscus 746608151 M23.307 Chondromal acia of left patella [id number] 63777 M22.42 At today's office visit the patient's diagnosis and treatment options were discussed in great detail. The patient was provided with informatio n to make an informativ e decision on the next steps for treatment. The patient has tried several conservati ve measures including but not limited to PT, rest, ice, and NSAIDs with no beneficial relief. Given the imaging results and the duration of the patient's symptoms I would recommend BMAC with fat as they are an excellent candidate. We discussed the need for PRP at [facility] the 12-week krista. The risk and benefits were discussed with the patient as well as functional and pain improvemen t outcomes. The procedure was discussed in detail as well as the recovery period. We discussed screening with R3 and its importance . We also discussed obtaining labs to ensure the patient is optimized for maximal results. I also discussed other conservati ve options. The patients case and treatment plan were reviewed in detail with Dr. Cali. PLAN: [facility]/fat to left knee MMT and PF joint All questions were answered, the patient understood the treatment plan. Greater than 45 minutes face-to-fa ce visit with more than 50% of my time spent counseling the patient about their diagnosis including pathophysi ology and treatment options. 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 She was provided with a prescripti on for that today Health Concerns Section Related Observation LastModified by Organization Detai ls LastModified Time None Recorded Concern Status LastModified by Organization Details LastModified Time None Recorded Advance Directives Directive None Recorded Payers Encounter Date Sequence Insurance Name Policy Number Policy Dumont Covered Member ID Dumont Member ID Guarantor Name 04/05/2020 1 [place] [id number] Henny Garcia [id number] Henny Garcia Notes Date Note Type Note Provider Name and Address Organization Details Recorded Time 04/05/2020 text/html 54-year-old fema julián comes in today complaining pain and discomfort in the left knee that is been ongoing since January. The pain is progressively getting worse. She states she has had no significant injury to the knee. She describes the pain as constant, dull, aching, intermittent, sharp, stabbing. She describes weakness, stiffness, loss of motion, locking, catching, popping and giving way. She is walking bothers her the most rest does help. She states that pain is predominantly in the kneecap and posterior behind the knee. She also gets lateral hip pain that radiates down the leg. She has tried rest, ice, physical therapy, memory care program director, acupuncture, nonsteroidal anti-inflammatories , massage, exercise, Tylenol and pain medication. She rates her pain as 7/10. She denies any mechanical symptoms. STACEY DELGADILLO [address], [place], [address], [facility] [employer], [facility] 04/12/2020 12:59:09 OBGyn Episode No OBEpisode recorded.
--- OUTSIDE RECORDS SUMMARY | 2024-10-26 10:46 | XMS_ITS | Clinical Summary ---
Author Organization [facility] [address] Address [address] [place] [address] Phone Care Team Providers Care Band Saw Operator Cake Cutting Name Role Phone Pepe Cross MD Unavailable [phone] Everardo CHANDLER MD, Román Pérez Unavailable [phone] Román Acosta MD Unavailable [phone] Maynor العراقي MD Unavailable [phone] Corazon Wellington MD Unavailable [phone] Michael Li MD Primary Care Provider [phone] Allergies Active Allergy Reactions Criticality Noted Date [...] (06/25/2020): Added automatically from request for surgery [id number] Wound dehiscence 04/20/2020 12/05/2020 Hip pain, left [...] needed Assessment & Plan (07/15/2018 3:02 PM MEDICAL RECEPTION): Catching/triggering/painful intermittently, gradually worsening Steroid injection today [...] (MDV) 05/30/2015,2013 Tdap 08/02/2020,05/07/2012 ZOSTER Recombinant 08/02/2019 Surgical History Surgery Date Site/Laterality Comments OTHER SURGICAL HISTORY tonsils 1970 OTHER SURGICAL HISTORY 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 Wellington (-) Medical History Medical History Date Comments Hx Other Medical high cholestero l/; Comments: [facility] 07/05/2014 - Hx Other Medical kidney surgery; Comments: [facility] 07/05/2014 - Hx Other Medical Under-developed kidney Single kidney Migraine Endometrial hyperplasia Menopause 2010 Hyperlipidemia Hypertension Menopause years ago Acquired trigger finger of r ight middle finger 06/15/[address] Mcgee 06/15 Trigger middle finger of left hand 04/01/2021 Trigger finger, left middle finger 04/19/2021 Coronavirus infection 08/14/2020 Family History Medical History Relation Name Comments Heart attack Brother Myocardial infa rction; Headache Father Headaches; Heart attack Father Myocardial infa rction; Other Father Pacemaker; Pancreatic cancer Father Other Maternal Grandmother Cancer, unknown primary; Cause of : Cancer, unknown primary Diabetes type II Mother Diabetes me llitus type 2; Hypertension Mother Hypertension; / Hypertension; Asthma Other 1 Family H/O Asthma; Heart attack Other 2 Myocardial infa rction; Diabetes type II Other 3 Diabetes me llitus type 2; Hypertension Other 4 Hypertension; Diabetes Other 5 Family history of Diabetes mellitus; Heart attack Paternal Grandfather Myocard ial infarction; Cause of : Myocardial infarction Relation Name Status Comments Brother Father Alive Maternal Grandmother (Age 96) Mother Alive Other 1 Family H/O Alive Other 2 Other 3 Other 4 Other 5 Paternal Grandfather Social History Tobacco Use Types Packs/Day Years [...] on file Legal Sex Female 3:58 PM MEDICAL RECEPTION Gender Identity Female 03/02/2020 7:16 AM CDT Sexual Orientation Straight 03/02/2020 7: 16 AM CDT Obstetrics History Last Filed Vital Signs Vital Sign Reading [...] 03/05/2022 11:38 AM CDT Plan of Treatment Health Maintenance Due Date Last Done Comments Hepatitis B Screening 1984 Cervical Cancer Screening 07/07/2017 07/07/2016 Zoster Vaccine (2 of 2) 09/27/2019 08/02/2019 Depression Screening 12/11/2022 12/11/2021, 12/05/2020, 11/08/2019 Regular Well Visit/Exam 18-64 12/11/2022 12/11/2021, 12/05/2020, 11/08/2019, Additional history exists Influenza Vaccine (#1) 2024 0, 05/30/2016, 05/30/2015, Additional history exists Breast Cancer Screening-Mammogram 12/03/2024 12/04/2023, 12/04/2023, 12/04/2022, Additional history exists Colon Cancer Screening-Colonoscopy 12/16/2027 12/15/2017 DTaP/Tdap/Td Vaccine (3 - Td or Tdap) 08/02/2030 08/02/2020, 05/07/2012 Colon Cancer Screening-CT Colonography Discontinued 12/15/2017 Colon Cancer Screening-DNA Stool Discontinued 12/15/2017 Colon Cancer Screening-FIT Discontinued 12/15/2017 Colon Cancer Screening-Sigmoidoscopy Discontinued 12/15/2017 Hepatitis C Screening Completed 08/23/2018, 018 Pneumococcal vaccine <65 Aged Out No longer eligible based on patient's age to complete this topic Procedures Procedure Name Priority Date/Time Associated Diagnosis Comments HEPATITIS C ANTIBODY Routine 08/23/2018 2:24 PM MEDICAL RECEPTION COLONOSCOPY 12/15/2017 11:42 AM CDT THINPREP IMAGING PAP REFLEX HPV MRNA E6/E7 Routine 07/07/2016 10:12 AM MEDICAL RECEPTION from Last 3 Months or Most Recently Relevant to Health Maintenance Results * Hepatitis C antibody (08/23/2018 2:24 PM MEDICAL RECEPTION) Hep C Ab NON-REACTI VE NON-REACTI VE AddressReport [facility] - [place] SIGNAL TO CUT-OFF 0.01 <1.00 AddressReport DIAG[facility] - [facility] 08/23/2018 2:24 PM MEDICAL RECEPTION 08/23/2018 2:25 PM MEDICAL RECEPTION Narrative Resulting Agency Comment Performing Organization Information: Site ID: [id number] Name: [facility] Address: [address] [place] [address] Director: Anthony Tyler D.O., MPH us Nishi Olsen MD LAB MICROBIOLOGY - GENERAL ORDERABLES Final Result [facility] * COLONOSCOPY (12/15/2017 11:42 AM CDT) Anatomical Region Laterality Modality Other Narrative Procedure Note Corazon Wellington MD - 12/15/2017 11:42 AM CDT [facility] Patient Name: Hina Garcia Procedure Date: 12/15/2017 11:42 AM Date of : 1965 Admit Type: Outpatient Age: 52 Gender: Female Attending MD: Corazon Wellington M.D. Room: [facility] ENDOSCOPY CAPSULE Note Status: Finalized Patient Profile: [...] passed under direct vision.The Pediatric Colonoscope PCF-H190L [id number] was introduced through the anus and advanced [...] 11:42 AM Procedure Code(s): --- Professional --- 20477, Colonoscopy, flexible; diagnostic, including collection of specimen(s) by brushing or washing, when performed (separateprocedure) Diagnosis Code(s): --- Professional --- Z12.11, Encounter for screening for malignant neoplasm of colon CPT copyright 2017 [employer]. All rights reserved. The codes documented in this report are preliminary and upon hims coder reviewmay be revised to meet current compliance requirements. Recognized by the [employer] for promoting quality in endoscopy Corazon Wellington MD ENDOSCOPY PROCEDURES Final Result * ThinPrep Imaging Pap Reflex HPV mRNA E6/E7 (07/07/2016 10:12 AM MEDICAL RECEPTION) SOURCE: SEE NOTE [facility] HISTORICAL RESULTS Comment:Cervix, [...] has been evaluated with computer assisted technology. Billboard Erector Helper SEE NOTE [facility] HISTORICAL RESULTS Comment: SHARON, CT(ASCP) CT screening location: [place] [address] [place] [address] Review charge nurse SEE NOTE [facility] HISTORICAL RESULTS Comment: PCM, CT(ASCP) CT screening location: [place] [address] [place] [address] Test performed [address] [address] Director: GRETCHEN MOODY MD 07/07/2016 10:1 2 AM MEDICAL RECEPTION Nishi Olsen MD LAB PATHOLOGY ORDERABLES F inal Result [facility] HISTORICAL RESULTS from Last 3 Months or Most Recently Relevant to Health Maintenance Insurance [facility] Advance Directives For more information, please contact: [phone] Documents on File Type Date Recorded Patient Business Support Specialist Expl anation ADVANCE DIRECTIVE 12/11/2021 POWER OF A TTORNEY-MEDICAL ADVANCE DIRECTIVE 05/07/2012 POWER OF A TTORNEY-MEDICAL * Full Code (Latest Code Status on File) Date Activated Date Inactivated Comments 12/15/2017 11:34 AM 12/15/2017 3:09 PM Care Teams Band Saw Operator Cake Cutting Relationship Specialty Start Date End Date Michael Li MD [address] [place] [address] PCP - General Family Practice 07/07/24 Pepe Cross MD [address] [address] Obstetrics and Gynecology 08/24/17 Román Mcgee III, MD [address] [address] Surgeon Plastic Surgery 08/24/18 Román Acosta MD [address] [address] Surgeon Orthopedic Surgery 12/05/20 Maynor العراقي MD [address] [address] Consulting Physician Cardiology 12/05/20 Corazon Wellington MD [address] [place] [address] Consulting Physician Gastroenterology 12/05/20
== END 2024-10-26 09:42 | disposition home or self-care (01) ==
LOC: ANHSURGERY 09:45
PROVIDERS: Anesthesiology; PCP Family Medicine; Visit Provider Obstetrics & Gynecology
DX: D64.9 Anemia, unspecified (principal); Z01.818 Encounter for other preprocedural examination
CPT/HCPCS: 36415; 85014; 85018; 86850; 86900; 86901

== ENCOUNTER 2024-11-01 02:40 | Day surgery (SDC) | payer OTHER, SELFPAY ==
[2024-10-20 14:28] VITALS: BMI 23.1
--- NOTE | 2024-10-20 15:14 | PC.NURSE ---
Report to the Outpatient Waiting Room, entrance under the green pavilion located off [facility], at time _10:00AM on date _11/01/24____. Planned Procedure Time: _12:00NOON .? Time changes happen often and if your time is changed the preop area will call you the afternoon before. - You and your visitor will be asked to self-screen and do not enter if you have any COVID symptoms. Please call surgeon if you need to reschedule. - A mask is optional within the hospital at this time. BRING AN OVERNIGHT BAG FOR YOUR ADMISSION POST PROCEDURE Patients may have clear liquids (water, carbonated beverages, clear teas, apple juice) until 3 hours prior to surgery with a maximum of 20 ounces. - No food from midnight until time of surgery and no smoking, or chewing tobacco (or any form of nicotine). No chewing gum, candy or mints. Take only the following medications with a SIP of water on the morning of surgery: __GABAPENTIN, HYDROCODONE_AS NEEDED DO NOT STOP ANY OF YOUR OTHER PRESCRIPTION MEDICATIONS PRIOR TO SURGERY EXCEPT THE FOLLOWING Hold all vitamins and supplements for 3 days per anesthesiologist. Medications to discontinue per physician Date to take last dose Please no make-up, nail belarusian, hairspray, perfume, deodorant, or body powder the day of surgery.? No jewelry (including any body piercings) or valuables the day of surgery, leave them at home.? Please take a shower or bath the night before, or the morning of, surgery with an antibacterial soap.? Wear comfortable, loose fitting clothing.? - Jewelry must be removed prior to entering the operating room.? Rings and piercings that are not removed may be cut off. - The hospital will not accept responsibility for valuables.? - Please leave all valuables, including medications, at home the day of surgery. If you are going home after surgery, a licensed auto crane driver must drive you home.? - NO public transportation without another adult if you receive anesthesia. - We recommend that an adult stay with you for 24 hours following discharge. - We also recommend that you do not drive, make important decision, drink alcoholic beverages, or take any drugs that were not prescribed by your health care provider for at least 24 hours after your discharge time. Follow any additional instructions given to you from your surgeon. Telephone instructions given to _[employer] and asked if any additional questions and then verbalized understanding. Patient advised to call surgeon office or pre surgery nurse liaison [phone] if any additional questions.
[2024-11-01] VITALS (8 sets, daily range): BP systolic 99–124; BP diastolic 60–74; PULSE 46–68; RESP 12–18; TEMP 36–36.6; O2SAT 97–100
--- OUTSIDE RECORDS SUMMARY | 2024-11-01 02:43 | XMS_ITS | Encounter Summary ---
Author Organization [facility] Address [address] [place] [address] Phone Care Team Providers Care Engineer Design And Construction Name Role Phone Nishi Olsen MD Primary Care Provider [phone] Pepe Cross MD Unavailable [phone] Everardo CHANDLER MD, Román Pérez Unavailable +- [phone] Bel Romero Unavailable [phone] Román Acosta MD Unavailable [phone] Maynor العراقي MD Unavailable [phone] Corazon Wellington MD Unavailable [phone] Unknown, Notinfile Primary Care Provider Unavail able Michael Li MD Primary Care Provider [phone] Encounter Details Date Type Department Care Team (Late st Contact Info) Description 04/10/2020 Orders Only [facility] [address] [place] [address] Scanning, Provider Social History Tobacco [...] on file Legal Sex Female 3:58 PM KENNEL 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 Gender Identity Female 03/02/2020 7:16 AM [...] documented as of this encounter Care Teams Engineer Design And Construction Relationship Specialty Start Date End Date Nishi Olsen MD PCP - General 10/31/16 12/01/22 Unknown, Notinfile PCP - General 01/31/23 07/06/24 Michael Li MD [address] [place] [address] PCP - General Family Practice 07/07/24 Pepe Cross MD [address] [address] Obstetrics and Gynecology 08/24/17 Román Mcgee III, MD [address] [address] Surgeon Plastic Surgery 08/24/18 Bel Romero PA [address] [address] Orthopedic Surgery 07/25/20 12/04/20 Román Acosta MD [address] [address] Surgeon Orthopedic Surgery 12/05/20 Maynor العراقي MD [address] [address] Consulting Physician Cardiology 12/05/20 Corazon Wellington MD [address] [facility] [address] [place] [address] Consulting Physician Gastroenterology 12/05/20 documented as of this encounter
--- OUTSIDE RECORDS SUMMARY | 2024-11-01 02:43 | XMS_ITS | Encounter Summary ---
Author Organization [facility] Address [address] [facility] [place] [address] Phone Care Team Providers Care Body And Fender Worker Name Role Phone Camilo Chisholm MD [facility] Michael Erazo MD Primary Care Provider [phone] Encounter Details Date Type Department Care Team (Late st Contact Info) Description 05/12/2023 Transcribe Orders [facility] Central Scheduling [address] [place] [address] Chiquita Benavidez APRN, DOPE DRY HOUSE OPERATOR [address] [address] Social History Tobacco Use Types Packs/Day Years [...] on filedocumented in this encounter Care Teams Body And Fender Worker Relationship Specialty Start Date End Date Michael Li MD [address] [place] [address] PCP - General Family Medicine 03/31/22 Camilo Chisholm MD Data Sme Cardiovascular Disease - Cardiology 03/21/22 documented as of this encounter
--- OUTSIDE RECORDS SUMMARY | 2024-11-01 02:43 | XMS_ITS | Encounter Summary ---
Author Organization [facility] Address [address] [place] [address] Phone Care Team Providers Care Price Clerk Name Role Phone Nishi Olsen MD Primary Care Provider [phone] Pepe Cross MD Unavailable [phone] Everardo CHANDLER MD, Román Pérez Unavailable [phone] Bel Romero Unavailable [phone] Román Acosta MD Unavailable [phone] Maynor العراقي MD Unavailable [phone] Corazon Wellington MD Unavailable [phone] Unknown, Notinfile Primary Care Provider Unavail able Michael Li MD Primary Care Provider [phone] Encounter Details Date Type Department Care Team (Late st Contact Info) Description 11/08/2020 Orders Only [facility] [address] [place] [address] Nishi Olsen MD [address] [place], [place] [id number] Social History Tobacco Use Types Packs/Day Years [...] on file Legal Sex Female 3:58 PM ROCK WORKER Gender Identity Female 03/02/2020 7:16 AM CDT [...] documented as of this encounter Care Teams Price Clerk Relationship Specialty Start Date End Date Nishi Olsen MD PCP - General 10/31/16 12/01/22 Unknown, Notinfile PCP - General 01/31/23 07/06/24 Michael Li MD [address] [place] [address] PCP - General Family Practice 07/07/24 Peep Cross MD [address] [place] [address] Obstetrics and Gynecology 08/24/17 Román Mcgee III, MD [address] [place] [address] Surgeon Plastic Surgery 08/24/18 Bel Romero PA [address] [address] Orthopedic Surgery 07/25/20 12/04/20 Román Acosta MD [address] [address] Surgeon Orthopedic Surgery 12/05/20 Maynor العراقي MD [address] [place] [address] Consulting Physician Cardiology 12/05/20 Corazon Wellington MD [address] [place] [address] Consulting Physician Gastroenterology 12/05/20 documented as of this encounter
--- OUTSIDE RECORDS SUMMARY | 2024-11-01 02:43 | XMS_ITS | Clinical Summary ---
Author Organization [facility] Address [address] [facility] Attn: Epic Prelude ADT [place] [address] Care Team Providers Care Air Drier Name Role Phone Unavailable Primary Care Provider Unavailabl e Social History Tobacco Use Types Packs/Day Years Used Date Smoking Tobacco: Never Assessed Comments Unknown Sex and Gender Information Value Date Recorded Sex Assigned at Not on file Legal Sex Female 4:09 AM DINKEY DRIVER Gender Identity Not on file Sexual Orientation Not on file Plan of Treatment Health Maintenance Due Date Last Done Comments DTAP/TDAP/TD VACCINES (1 - Tdap) 1985 HEPATITIS B VACCINES (1 of 3 - 19+ 3-dose series) 06/03 HPV/Cotest (21-29) 1987 PAP SMEAR 1987 CERVICAL CANCER SCREENING 1996 HPV/Cotest (30-65) 1996 PAP SMEAR 1996 BREAST CANCER SCREENING 2006 COLORECTAL SCREENING 2011 Colorectal Cancer Screening 2011 FIT-DNA Q 3 years 2011 FIT/FOBT Q 1 year 2011 Flex Sig/CT Colonography Q 5 years 2011 ZOSTER VACCINE (1 of 2) 2016 INFLUENZA VACCINE (#1) 2024
--- OUTSIDE RECORDS SUMMARY | 2024-11-01 02:43 | XMS_ITS | CONTINUITY OF CARE DOCUMENT ---
Author Name yana millan Address Unknown Organization [facility] Address [address] [place] [address] [address] [place] [address] Phone [phone] Care Team Providers Care Litigation Associate Name Role Phone Maynor العراقي MD Unavailable CLEMENTE MARSH MD Unavailable [phone] CLEMENTE MARSH MD Unavailable PROBLEMS Condition Status [...] In-person encounter Office Visit Maynor العراقي MD [facility] - In-person encounter Office Visit Maynor العراقي MD TeleHealth - In-person encounter Office Visit Maynor العراقي MD [facility] Cardiovascular screeningCoronary atherosclerosis, CAC score 11 in LAD 03/2020Family Hx heart diseaseFamilial hypercholesterolemiaTremor, on propanalolHyperglycemia VITAL SIGNS Date Observation Value Provider Body Mass Index (Ratio) 24.03 kg/m2 Emerson العراقي MD blood pressure, diastolic 70 mm[Hg] Rh allie [place] blood pressure, systolic 108 mm[Hg] Rho incolle [place] oxygen saturation, oximetry 98 % Carly [...] Payer name Policy type / Coverage type [place] red green party ID [facility] [id number] TREATMENT PLAN Date Name Performer [id number],B, Lolis Ambrose lily TAPER PRINTED CIRCUIT LAYOUT [id number],B, Lolis Ambrose lily TAPER PRINTED CIRCUIT LAYOUT [id number],W, L [address] 97 i deal LDL <70 r ecommended eating more seafood, cutting fried/fast foods H er updated medication list for this problem includes: Ezetimibe 10 Mg Oral Tablet (Ezetimibe) ..... One tab daily Rosuvastatin Calcium 5 Mg Oral Tablet (Rosuvastatin calcium) ..... One tab weekly on mondays Lolis Adan SEBLE [id number],S, T he following medications were removed from the medication list: Propranolol Hcl 20 Mg Oral Tablet (Propranolol hcl) ..... Take one tablet by mouth twice daily Lolis Adan [facility] Cardiology [facility] Cardiology [facility] Cardiology: L DL 97 i [...] Maynor العراقي MD Cardiology: b ashish had [place] in his 30s Maynor العراقي MD Cardiology: [...] Take one tablet by mouth twice daily Maynro العراقي MD Date Name LIPID PANEL LIPID PANEL LIPID PANEL LIPID PANEL LIPID PANEL HEMOGLOBIN A1c [facility] Advanced Li pid Panel with Inflammation ([facility]) Complete Echo CT, Coronary Calcium Score HISTORY OF PROCEDURES Procedure Date Procedure Name Provider Procedure Notes S tatus EKG Maynor العراقي MD complet ed CT- Coronary CA score Maynor العراقي MD completed
--- OUTSIDE RECORDS SUMMARY | 2024-11-01 02:43 | XMS_ITS | Encounter Summary ---
Author Organization [facility] Address [address] [facility] [place] [address] Phone Care Team Providers Care Physical Medicine Specialist Name Role Phone Camilo Chisholm MD [facility] Michael Erazo MD Primary Care Provider Reason for Visit * Reason Comments Medication Refill Encounter Details Date Type Department Care Team (Late st Contact Info) Description 10/11/2023 Refill [facility] - [facility] [address] [place] [phone] Camilo Chisholm MD Medication Refill Social History [...] Office Visit Camilo Chisholm MD [facility] [place] 08/07/22 Office Visit Camilo Chisholm MD [facility] [place] Showing recent visits within past 548 days [...] Palpitations documented in this encounter Care Teams Physical Medicine Specialist Relationship Specialty Start Date End Date Michael Li MD [address] [place] [address] PCP - General Family Medicine 03/31/22 Camilo Chisholm MD Travel Med Surg Rn Cardiovascular Disease - Cardiology 03/21/22 documented as of this encounter
--- OUTSIDE RECORDS SUMMARY | 2024-11-01 02:43 | XMS_ITS | Encounter Summary ---
Author Organization [facility] Address [address] [facility] [place] [address] Phone Care Team Providers Care Clinic Licensed Practical Nurse Name Role Phone Camilo Chisholm MD [facility] Michael Erazo MD Primary Care Provider [phone] Encounter Details Date Type Department Care Team (Late st Contact Info) Description 05/12/2023 Transcribe Orders [facility] Scheduling [address] [place] [address] Chiquita Benavidez APRN, COMBINATION WELDER APPRENTICE [address] [address] Social History Tobacco Use Types Packs/Day Years [...] on filedocumented in this encounter Care Teams Clinic Licensed Practical Nurse Relationship Specialty Start Date End Date Michael Li MD [address] [place] [address] PCP - General Family Medicine 03/31/22 Camilo Chisholm MD [facility] Care Coordinator Cardiovascular Disease - Cardiology 03/21/22 documented as of this encounter
--- OUTSIDE RECORDS SUMMARY | 2024-11-01 02:43 | XMS_ITS | Encounter Summary ---
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
--- OUTSIDE RECORDS SUMMARY | 2024-11-01 02:43 | XMS_ITS | Encounter Summary ---
Author Organization [facility] Address [address] [place] [address] Phone Care Team Providers Care Cytology Technologist Name Role Phone Nishi Olsen MD Primary Care Provider [phone] Pepe Cross MD Unavailable [phone] Everardo CHANDLER MD, Román Pérez Unavailable [phone] Bel Romero Unavailable [phone] Román Acosta MD Unavailable [phone] Maynor العراقي MD Unavailable [phone] Corazon Wellington MD Unavailable [phone] Unknown, Notinfile Primary Care Provider Unavail able Michael Li MD Primary Care Provider [phone] Encounter Details Date Type Department Care Team (Late st Contact Info) Description 08/17/2017 Orders Only [facility] [address] [place] [address] Nishi Olsen MD [address] [place], [place] [address] Social History Tobacco Use Types Packs/Day Years Used Date Smoking Tobacco: Former Cigarettes Q uit: 08/03/1983 Alcohol Use Standard Drinks/Week Comments Yes 0 (1 standard drink = 0.6 oz pur e alcohol) Comments Unknown Sex and Gender Information Value Date Recorded Sex Assigned at Not on file Legal Sex Female 3:58 PM COMMERCIAL ENERGY AUDITOR Gender Identity Female 03/02/2020 7:16 AM CDT Sexual Orientation Straight 03/02/2020 7: 16 AM CDT documented as of this encounter Plan of Treatment Not on file documented as of this encounter Procedures Procedure Name Priority Date/Time Associated Diagnosis Comments SCAN - RADIOLOGY/IMAGING 08/17/2017 11:55 AM COMMERCIAL ENERGY AUDITOR documented in this encounter Results * SCAN - RADIOLOGY/IMAGING (08/17/2017 11:55 AM COMMERCIAL ENERGY AUDITOR) Anatomical Region Laterality Modality Other us Nishi Olsen MD Final Resu lt documented in this encounter Visit Diagnoses Not on filedocumented in this encounter Additional Health Concerns Infection Onset Date Last Indicated Resolved Time COVID: Recovered Comment:Patient meets COVID recovered criteria. Positive lab results from 07/03. JACOB Ng 07/23/2020 07/23/2020 11/21/19 21 3:05 AM CDT documented as of this encounter Care Teams Cytology Technologist Relationship Specialty Start Date End Date Nishi Olsen MD PCP - General 10/31/16 12/01/22 Unknown, Notinfile PCP - General 01/31/23 07/06/24 Michael Li MD [address] [place] [address] PCP - General Family Practice 07/07/24 Pepe Cross MD [address] [place] [address] Obstetrics and Gynecology 08/24/17 Román Mcgee III, MD [address] [place] [address] Surgeon Plastic Surgery 08/24/18 Bel Romero PA [address] [place] [address] Orthopedic Surgery 07/25/20 12/04/20 Román Acosta MD [address] [place] [address] Surgeon Orthopedic Surgery 12/05/20 Maynor العراقي MD [address] [place] [address] Consulting Physician Cardiology 12/05/20 Corazon Wellington MD [address] [place] [address] Consulting Physician Gastroenterology 12/05/20 documented as of this encounter
--- OUTSIDE RECORDS SUMMARY | 2024-11-01 02:43 | XMS_ITS | Clinical Summary ---
Author Organization [facility] Address [address] [place] [address] Care Team Providers Care Mold Cooler Name Role Phone Michael Li MD Primary Care Provider [phone] Source Comments [facility],non-owned Affiliates and Associated Physician Practices is amultiple site organization consisting of ambulatory clinics and hospital sitesin [place], [place], [place] and [place]. This disclosure is being madepursuant to the Care Everywhere program and may not contain all information available regarding this patient. Last updated 18.[facility] Allergies Active Allergy Reactions Criticality Noted Date [...] fluticasone propionate (Flonase) 50 MCG/ACT nasal spray [place] 2 (two) sprays into the nose once [...] Department Care Team Description 09/08/2024 2:00 PM PERSONNEL AND PAYROLL TECHNICIAN Office Visit [facility] [address] [place] [address] Ishmael Vallejo MD IPMN (intraductal papillary mucinous [...] Comments Blood Pressure 120/73 09/08/2024 1:55 PM PERSONNEL AND PAYROLL TECHNICIAN Pulse 62 09/08/2024 1:55 PM PERSONNEL AND PAYROLL TECHNICIAN Temperature 36.6 C (97.8 F) 09/08/2024 1:55 PM PERSONNEL AND PAYROLL TECHNICIAN Respiratory Rate 13 05/27/2023 3:25 PM CDT Oxygen Saturation 100% 09/08/2024 1:55 PM PERSONNEL AND PAYROLL TECHNICIAN Inhaled Oxygen Concentration - - Weight 60.3 kg (133 lb) 09/08/2024 1:55 PM PERSONNEL AND PAYROLL TECHNICIAN Height 162.6 cm (5' 4 ) 09/08/2024 1:55 PM PERSONNEL AND PAYROLL TECHNICIAN Body Mass Index 22.83 09/08/2024 1:55 PM PERSONNEL AND PAYROLL TECHNICIAN Plan of Treatment Upcoming Encounters Date Type Department Care Team (Late st Contact Info) Description 11/25/2024 5:30 PM CDT Appointment [facility] [address] [place] [address] Ishmael Vallejo MD [address] [facility] [address] [facility] [place] [address] Health Maintenance Due Date Last Done Comments [...] Management General On track( 025 3:11 PM PERSONNEL AND PAYROLL TECHNICIAN) Jolly Reid, ELIECER Note: Expected end date: ongoing Interventions: Take all medications as prescribed Let your doctor know right away about any changes in your medications Make sure to request a refill of your medication at least one week prior to your last dose Care Teams Mold Cooler Relationship Specialty Start Date End Date Michael Li MD [address] [place] [address] PCP - General 08/13/22
--- OUTSIDE RECORDS SUMMARY | 2024-11-01 02:43 | XMS_ITS | Encounter Summary ---
Author Organization [facility] Address [address] [place] [address] Phone Care Team Providers Care Railroader Name Role Phone Nishi Olsen MD Primary Care Provider [phone] Pepe Cross MD Unavailable [phone] Everardo CHANDLER MD, Román Pérez Unavailable +- [phone] Bel Romero Unavailable [phone] Román Acosta MD Unavailable [phone] Maynor العراقي MD Unavailable [phone] Corazon Wellington MD Unavailable [phone] Unknown, Notinfile Primary Care Provider Unavail able Michael Li MD Primary Care Provider [phone] Encounter Details Date Type Department Care Team (Late st Contact Info) Description 04/19/2020 Orders Only [facility] [address] [place] [address] Scanning, Provider Social History Tobacco [...] on file Legal Sex Female 3:58 PM TRANSLATIONAL SPECIALIST Gender Identity Female 03/02/2020 7:16 AM CDT [...] documented as of this encounter Care Teams Railroader Relationship Specialty Start Date End Date Nishi Olsen MD PCP - General 10/31/16 12/01/22 Unknown, Notinfile PCP - General 01/31/23 07/06/24 Michael Li MD [address] [place] [address] PCP - General Family Practice 07/07/24 Pepe Cross MD [address] [address] Obstetrics and Gynecology 08/24/17 Román Mcgee III, MD [address] [address] Surgeon Plastic Surgery 08/24/18 Bel Romero PA [address] [address] Orthopedic Surgery 07/25/20 12/04/20 Román Acosta MD [address] [address] Surgeon Orthopedic Surgery 12/05/20 Maynor العراقي MD [address] [address] Consulting Physician Cardiology 12/05/20 Corazon Wellington MD [address] [facility] [address] [place] [address] Consulting Physician Gastroenterology 12/05/20 documented as of this encounter
--- OUTSIDE RECORDS SUMMARY | 2024-11-01 02:43 | XMS_ITS | Data Portability ---
Author Organization [employer] [facility] Address [address] [address] Care Team Providers Care Liquified Natural Gas Technician Name Role Phone ANICETO MARSH Primary Care Provider [phone] Assessment No assessment recorded. Plan of Treatment Reminders Order Date Submit Date Provider Last Modified By Organization Details Last Modified Time Details Appointments None recorded. Lab CBC w/ auto diff 2019 020 Not available 0 14:27:34 vitamin D, 25-hydroxy, total, serum 2019 020 [email or web address] Not available 0 14:27:34 testosteron e, free, serum 2019 020 [email or web address] Not available 0 14:27:34 testosteron e, total, serum 2019 020 Not available 0 14:27:34 Referral physical therapist referral 2019 020 [email or web address] Not available 0 16:59:53 Procedures None recorded. Surgeries None recorded. Imaging None recorded. Medication Orders meloxicam 15 mg tablet 2019 020 [email or web address] [facility] #[id number], [address] [place], [place], [id number], 0 14:27:34 diclofenac 1 % topical gel 2019 020 [email or web address] [facility] #[id number], [address] [place], [place], [id number], 0 14:27:34 Patient TargetsNo targets recorded. Patient InstructionsNo instructions recorded. Reason for Referral Physical Therapist Referral for Hip pain Referring Physician: Daria Ceballos, Air Hole Driller, Encounter Date: 04/05/2020 Problems No Known Problems Procedures Surgical History Date Name Laterality Status Provider Name and Address Organization Details Recorded Time 0 Generic Procedure completed [facility]ACE[facility] [address], [place], [address], [employer] 04/12/2020 12:54:54 Imaging Results None recorded. Procedure Notes None recorded. Medical Equipment None Reported. Allergies Allergen ID Allergen Name Allergen Category Reaction Reaction Severity Criticality Documentation Date Start Date Code Code System Note Provider Name and Address Organization Details Recorded Time 14516 amoxicill in medicatio n hives Not available Not available 04/05/2020 723 RxNorm Amy Maldonado [employer] 0 13:30:34 84690 Product containin g 3-hydroxy -3-methyl glutaryl- coenzyme A reductase inhibitor (product) medicatio n myalgias (muscle pain) Not available Not available 04/05/2020 97213 009 SNOMED Amy Maldonado [employer] 0 13:30:50 Medications Name Sig Start Date [...] Updated DateTime 04/05/2020 162.56 cm 24.9 kg/m2 92893.89 g Amy Mo[facility]urban [employer] 04/05/2020 13:05:09 Social History Question Answer Notes LastModified by SportyBird ion Details LastModified Time Tobacco Smoking Status Never Smoker Amy Okeefe SUSAN brandt - [employer] [facility], [facility] 04/05/2020 13:35:46 What Is Your Level Of Alcohol Consumption? Occasional [email or web address] Information not available 04/05/2020 Marital Status nicole Informatio n not available 04/05/2020 Sex: Unknown Functional Status None recorded. Mental Status None recorded. Family History Nothing Reported. Medical History Condition Response Arthritis Y Kidney Cancer Y High Cholesterol Y Gynecological HistoryNo gynecological history recorded. Obstetrics History GPAL:G 0 P 0 0 0 0 Past Encounters Encounter ID Performer Location Encounter Start Date Encounter Closed Date Diagnosis/Indication Diagnosis SNOMED-CT Code Diagnosis ICD10 Code Diagnosis Note [id number] STACE[facility]ILL[facility] [address] [facility] ,[address] [place] [address] 04/05/2020 13:02:37 04/12/2020 16:59:19 Screening procedure 13603026 Z13.9 Z01.812 R53.83 M89.9 M94.9 E55.9 Hip pain 38186605 M25.55 2 Derangemen t of medial meniscus 027343249 M23.307 Chondromal acia of left patella 9393965562 76468 M22.42 At today's office visit the patient's [...] We discussed the need for PRP at [facility] the 12-week krista. 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 She rates her pain as 7/10. She denies any mechanical symptoms. STACEY DELGADILLO [address] [place] [address], [place], [address], [facility] [email or web address], [facility] 04/12/2020 12:59:09 OBGyn Episode No OBEpisode recorded.
--- OUTSIDE RECORDS SUMMARY | 2024-11-01 02:43 | XMS_ITS | Encounter Summary ---
Author Organization [facility] Address [address] [facility] Attn: Epic Prelude ADT [place] [address] Care Team Providers Care Underwriting Clerks Supervisor Name Role Phone Unavailable Primary Care Provider [...] on file Legal Sex Female 4:09 AM HOSPICE REGISTERED NURSE Gender Identity Not on file Sexual Orientation Not on file documented as of this encounter Plan of Treatment Not on file documented as of this encounter Visit Diagnoses Not on filedocumented in this encounter
--- OUTSIDE RECORDS SUMMARY | 2024-11-01 02:43 | XMS_ITS | Encounter Summary ---
Author Organization [facility] Address [address] [place] [address] Phone Care Team Providers Care Rough And Trueing Machine Operator Name Role Phone Nishi Olsen MD Primary Care Provider [phone] Pepe Cross MD Unavailable [phone] Everardo CHANDLER MD, Román Pérez Unavailable +- [phone] Bel Romero Unavailable [phone] Román Acosta MD Unavailable [phone] Maynor العراقي MD Unavailable [phone] Corazon Wellington MD Unavailable [phone] Unknown, Notinfile Primary Care Provider Unavail able Michael Li MD Primary Care Provider [phone] Encounter Details Date Type Department Care Team (Late st Contact Info) Description 04/26/2020 Orders Only [facility] [address] [place] [address] Scanning, Provider Social History Tobacco [...] on file Legal Sex Female 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 Gender Identity Female 03/02/2020 7:16 AM CDT [...] documented as of this encounter Care Teams Rough And Trueing Machine Operator Relationship Specialty Start Date End Date Nishi Olsen MD PCP - General 10/31/16 12/01/22 Unknown, Notinfile PCP - General 01/31/23 07/06/24 Michael Li MD [address] [place] [address] PCP - General Family Practice 07/07/24 Pepe Cross MD [address] [address] Obstetrics and Gynecology 08/24/17 Román Mcgee III, MD [address] [address] Surgeon Plastic Surgery 08/24/18 Bel Romero PA [address] [address] Orthopedic Surgery 07/25/20 12/04/20 Román Acosta MD [address] [address] Surgeon Orthopedic Surgery 12/05/20 Maynor العراقي MD [address] [address] Consulting Physician Cardiology 12/05/20 Corazon Wellington MD [address] [facility] [address] [place] [address] Consulting Physician Gastroenterology 12/05/20 documented as of this encounter
--- OUTSIDE RECORDS SUMMARY | 2024-11-01 02:43 | XMS_ITS | Clinical Summary ---
Author Organization [facility] Address [address] [place] [address] Phone Care Team Providers Care Chip Tuner Name Role Phone Camilo [place] MD Unavailable Michael Erazo MD Primary Care Provider [phone] Allergies Active Allergy Reactions Criticality Noted Date [...] made to exams dated: 11/22/2021, 01/07/2022, 12/04/2022 [facility], and 11/08/2020 [facility]. BREAST TISSUE:There are scattered fibroglandular [...] signed by: Susanne Riddle M.D. ll/:12/04/2023 09:32:26 Controls Technician(s): RT Shelly(R)(M), [facility]; Mulu Vincent, [facility] letter sent: Normal Exam Reading location: [facility] OVERALL STUDY BIRADS: 2 Benign Procedure Note [...] made to exams dated: 11/22/2021, 01/07/2022, 12/04/2022 [facility], and 11/08/2020 [facility]. BREAST TISSUE:There are scattered fibroglandular [...] signed by: Susanne Riddle M.D. ll/:12/04/2023 09:32:26 Controls Technician(s): Fatimah Way RT(R)(M), [facility]; Mulu Vincent, [facility] letter sent: Normal Exam Reading location: [facility] OVERALL STUDY BIRADS: 2 Benign us Pepe Cross MD [facility] MAMMO ORDERABLES Final Resu lt * STOOL, OCCULT BLOOD, DIAGNOSTIC (03/16/2023 1:26 PM CDT) OCCULT BLOOD DIAG, GI BLEED Negative Negative 03/16/2023 2:03 PM CDT [facility] Stool STOOL SPECIMEN / Unknown Non-Phlebotomy Collection / Unknown 03/16/2023 1:26 PM CDT 03/16/2023 1:26 PM CDT us Michael Li MD BODY FLUIDS & STOOLS ORDERABLES Final Result [facility] [address] [place] [address] from Last 3 Months or Most Recently Relevant to Health Maintenance Insurance MEDICAID [facility] [employer] [facility] MED[employer] Care Teams Chip Tuner Relationship Specialty Start Date End Date Michael Li MD [address] [place] [address] PCP - General Family Medicine 03/31/22 Camilo [place] MD Fructose Loader Cardiovascular Disease - Cardiology 03/21/22
--- OUTSIDE RECORDS SUMMARY | 2024-11-01 02:44 | XMS_ITS | Clinical Summary ---
Author Organization [facility] [address] Address [address] [place] [address] Phone Care Team Providers Care Signing Teacher Name Role Phone Pepe Cross MD Unavailable [phone] Everardo CHANDLER MD, Román Pérez Unavailable [phone] Román Acosta MD Unavailable [phone] Maynor العراقي MD Unavailable [phone] Corazon Wellington MD Unavailable Michael Li MD Primary Care Provider [phone] Allergies Active Allergy Reactions Criticality Noted Date [...] (06/25/2020): Added automatically from request for surgery [id number] Wound dehiscence 04/20/2020 12/05/2020 Hip pain, left [...] needed Assessment & Plan (07/15/2018 3:02 PM SUPERVISOR SEWER MAINTENANCE): Catching/triggering/painful intermittently, gradually worsening Steroid injection today [...] Hx Other Medical high cholestero l/; Comments: [facility] 07/05/2014 - Hx Other Medical kidney surgery; Comments: [facility] 07/05/2014 - Hx Other Medical Under-developed kidney [...] on file Legal Sex Female 3:58 PM SUPERVISOR SEWER MAINTENANCE Gender Identity Female 03/02/2020 7:16 AM CDT [...] HEPATITIS C ANTIBODY Routine 08/23/2018 2:24 PM SUPERVISOR SEWER MAINTENANCE COLONOSCOPY 12/15/2017 11:42 AM CDT [facility]AG[facility] PAP REFLEX HPV MRNA E6/E7 Routine 07/07/2016 10:12 AM SUPERVISOR SEWER MAINTENANCE from Last 3 Months or Most Recently Relevant to Health Maintenance Results * Hepatitis C antibody (08/23/2018 2:24 PM SUPERVISOR SEWER MAINTENANCE) Hep C Ab NON-REACTI VE NON-REACTI VE [facility] DI[facility]NOST[facility] - [facility] SIGNAL TO CUT-OFF 0.01 <1.00 [facility] - [facility] 08/23/2018 2:24 PM SUPERVISOR SEWER MAINTENANCE 08/23/2018 2:25 PM SUPERVISOR SEWER MAINTENANCE Narrative Resulting Agency Comment Performing Organization Information: Site ID: [id number] Name: [facility] Address: [address] [place] [address] Director: Anthony Tyler D.O., MPH us Nishi Olsen MD LAB MICROBIOLOGY - GENERAL ORDERABLES Final Result [facility]ter * COLONOSCOPY (12/15/2017 11:42 AM CDT) Anatomical Region Laterality Modality Other Narrative Procedure Note Corazon Wellington MD - 12/15/2017 11:42 AM CDT [facility] Patient Name: Hina Garcia Procedure Date: 12/15/2017 11:42 AM Date of : 1965 Admit Type: Outpatient Age: 52 Gender: Female Attending MD: Corazon Wellington M.D. Room: [facility] Note Status: Finalized Patient Profile: [...] passed under direct vision.The Pediatric Colonoscope PCF-H190L [id number] was introduced through the anus and advanced [...] 11:42 AM Procedure Code(s): --- Professional --- 09320, Colonoscopy, flexible; diagnostic, including collection of specimen(s) by brushing or washing, when performed (separateprocedure) Diagnosis Code(s): --- Professional --- Z12.11, Encounter for screening for malignant neoplasm of colon CPT copyright 2017 [employer]. All rights reserved. The codes documented in this report are preliminary and upon television operator reviewmay be revised to meet current compliance requirements. Recognized by the [place] [employer] for promoting quality in endoscopy Corazon Wellington MD ENDOSCOPY PROCEDURES Final Result * [facility] Imaging Pap Reflex HPV mRNA E6/E7 (07/07/2016 10:12 AM SUPERVISOR SEWER MAINTENANCE) SOURCE: SEE NOTE [facility] HISTORICAL RESULTS Comment:Cervix, [...] has been evaluated with computer assisted technology. Fruit Farmworker SEE NOTE [facility] HISTORICAL RESULTS Comment: SHARON, CT(ASCP) CT screening location: [place] [address] [place] [address] Review bi solutions architect SEE NOTE [facility] HISTORICAL RESULTS Comment: PCM, CT(ASCP) CT screening location: [place] [address] [place] [address] Test performed [address] [address] Director: GRETCHEN MOODY MD 07/07/2016 10:1 2 AM SUPERVISOR SEWER MAINTENANCE Nishi Olsen MD LAB PATHOLOGY ORDERABLES F inal Result [facility] HISTORICAL RESULTS from Last 3 Months or Most Recently Relevant to Health Maintenance Insurance [facility] [employer] [facility] Advance Directives For more information, please contact: [phone] Documents on File Type Date Recorded Patient Factory Assembler Expl anation ADVANCE DIRECTIVE 12/11/2021 POWER OF A [employer]TORNEY-MEDICAL ADVANCE DIRECTIVE 05/07/2012 POWER OF A TTORNEY-MEDICAL * Full Code (Latest Code Status on File) Date Activated Date Inactivated Comments 12/15/2017 11:34 AM 12/15/2017 3:09 PM Care Teams Signing Teacher Relationship Specialty Start Date End Date Michael Li MD [address] [place] [address] PCP - General Family Practice 07/07/24 Pepe Cross MD [address] [address] Obstetrics and Gynecology 08/24/17 Román Mcgee III, MD [address] [address] Surgeon Plastic Surgery 08/24/18 Román Acosta MD [address] [address] Surgeon Orthopedic Surgery 12/05/20 Maynor العراقي MD [address] [address] Consulting Physician Cardiology 12/05/20 Corazon Wellington MD [address] [place] [address] Consulting Physician Gastroenterology 12/05/20
--- OUTSIDE RECORDS SUMMARY | 2024-11-01 02:44 | XMS_ITS | Referral Summary ---
Author Organization [facility] [address] Address [address] [place] [address] Phone Care Team Providers Care Cop Name Role Phone Pepe Cross MD Unavailable [phone] Everardo CHANDLER MD, Román Pérez Unavailable [phone] Román Acosta MD Unavailable [phone] Maynor العراقي MD Unavailable [phone] Corazon Wellington MD Unavailable [phone] Michael Li MD Primary Care Provider [phone] Allergies Active Allergy Reactions Criticality Noted Date [...] (06/25/2020): Added automatically from request for surgery [id number] Wound dehiscence 04/20/2020 12/05/2020 Hip pain, left [...] needed Assessment & Plan (07/15/2018 3:02 PM FLAP MAKER): Catching/triggering/painful intermittently, gradually worsening Steroid injection today [...] on file Legal Sex Female 3:58 PM FLAP MAKER Gender Identity Female 03/02/2020 7:16 AM CDT [...] HEPATITIS C ANTIBODY Routine 08/23/2018 2:24 PM FLAP MAKER COLONOSCOPY 12/15/2017 11:42 AM CDT [facility] PAP REFLEX HPV MRNA E6/E7 Routine 07/07/2016 10:12 AM FLAP MAKER from Last 3 Months or Most Recently Relevant to Health Maintenance Results * Hepatitis C antibody (08/23/2018 2:24 PM FLAP MAKER) Hep C Ab NON-REACTI VE NON-REACTI VE [facility] [place] SIGNAL TO CUT-OFF 0.01 <1.00 [facility] [place] 08/23/2018 2:24 PM FLAP MAKER 08/23/2018 2:25 PM FLAP MAKER Narrative Resulting Agency Comment Performing Organization Information: Site ID: [id number] Name: [facility] Address: [address] [place] [address] [facility] [address] Director: Anthony Tyler D.O., MPH us Nishi Olsen MD LAB MICROBIOLOGY - GENERAL ORDERABLES Final Result XI [facility] * COLONOSCOPY (12/15/2017 11:42 AM CDT) Anatomical Region Laterality Modality Other Narrative Procedure Note Corazon Wellington MD - 12/15/2017 11:42 AM CDT [facility] Patient Name: Hina Garcia Procedure Date: 12/15/2017 11:42 AM Date of : 1965 Admit Type: Outpatient Age: 52 Gender: Female Attending MD: Corazon Wellington M.D. Room: [facility] ENDOSCOPY CAPSULE Note Status: Finalized Patient Profile: [...] passed under direct vision.The Pediatric Colonoscope [id number] was introduced through the anus and advanced [...] 11:42 AM Procedure Code(s): --- Professional --- 78972, Colonoscopy, flexible; diagnostic, including collection of specimen(s) by brushing or washing, when performed (separateprocedure) Diagnosis Code(s): --- Professional --- Z12.11, Encounter for screening for malignant neoplasm of colon CPT copyright 2017 [employer]. All rights reserved. The codes documented in this report are preliminary and upon prenatal genetic counselor reviewmay be revised to meet current compliance requirements. Recognized by the [employer] for promoting quality in endoscopy Corazon Wlelington MD ENDOSCOPY PROCEDURES Final Result * [facility] Pap Reflex HPV mRNA E6/E7 (07/07/2016 10:12 AM FLAP MAKER) SOURCE: SEE NOTE [facility] Comment:Cervix, [...] has been evaluated with computer assisted technology. Cashier Checker SEE NOTE [facility] Comment: SHARON, CT(ASCP) CT screening location: [place] [address] [address] [place] [id number] Review hot blaster SEE NOTE [facility] RESULTS Comment: PCM, CT(ASCP) CT screening location: [place] [address] [place] [address] Test performed at [facility] [address] Director: GRETCHEN MOODY MD 07/07/2016 10:1 2 AM FLAP MAKER Nishi Olsen MD LAB PATHOLOGY ORDERABLES F inal Result [facility] RESULTS from Last 3 Months or Most Recently Relevant to Health Maintenance Insurance [employer] OR [employer] OR [facility] Advance Directives For more information, please contact: [phone] Documents on File Type Date Recorded Patient Injection Molding Machine Tender Expl anation ADVANCE DIRECTIVE 12/11/2021 POWER OF A [employer]TORNEY-MEDICAL ADVANCE DIRECTIVE 05/07/2012 POWER OF A [employer]TORNEY-MEDICAL * Full Code (Latest Code Status on File) Date Activated Date Inactivated Comments 12/15/2017 11:34 AM 12/15/2017 3:09 PM Care Teams Cop Relationship Specialty Start Date End Date Michael Li MD [address] [place] [address] PCP - General Family Practice 07/07/24 Pepe Cross MD [address] [address] Obstetrics and Gynecology 08/24/17 Román Mcgee III, MD [address] [address] Surgeon Plastic Surgery 08/24/18 Román Acosta MD [address] [address] Surgeon Orthopedic Surgery 12/05/20 Maynor العراقي MD [address] [address] Consulting Physician Cardiology 12/05/20 Corazon Wellington MD [address] [address] Consulting Physician Gastroenterology 12/05/20
[2024-11-01] MEDS: LACTATED RINGERS 1,000 ML 30 ML IV CONT (11:09)
[2024-11-01] MEDS: ACETAMINOPHEN 500 MG TABLET 1000 MG PO ×3 (11:10→22:30)
[2024-11-01] MEDS: KETOROLAC 15 MG/ML VIAL (*BKC) IV PUSH (11:10)
--- NOTE | 2024-11-01 11:40 | P.HP_ITS ---
H&P: HPI History of Present Illness Date/Time: 11/01/24 11:40 Chief Complaint: Persistent vaginal bleeding Narrative: 59 y/o with persistent trouble with postcoital bleeding, dyspareunia, and persistent abnormal pap readings. She is here for definitive management with robotic assisted TVHBSO. Review of Systems Review of Systems: All systems reviewed & are unremarkable except as noted in HPI and below [facility] Past Medical History Medical History (Updated 11/01/24 @ 11:43 by Pepe Cross MD) Abnormal Pap smear of cervix History of LEEP (loop electrosurgical excision procedure) of cervix complicating Colon cancer screening IPMN (intraductal papillary mucinous neoplasm) Elevated AST (SGOT) FHx: pancreatic cancer Attention deficit disorder Memory deficit Decreased leukocytes Liver mass Pancreatic cyst Elevated liver enzymes Congenital absence of one kidney Elevated cholesterol Bacterial sinusitis Hand numbness Carpal tunnel syndrome Cervicalgia Right shoulder pain Trigger finger, left middle finger Palpitations Surgical History Surgical History History of nephrectomy History of hand surgery Right middle finger trigger release History of tonsillectomy Social History Social History Smoking status: Never smoker Alcohol intake: current Drinks per week: 4 Substance use: never Substance use type: does not use Lack of Transportation: No Lack of Food: Never True Current Housing: I Have Housing Concerned About Future Housing: No Difficulty Paying Gas/Electric Bills: No Difficulty Paying for Meds: No Currently Unemployed: No Education: Trade/Vocational Certificate Difficulty w/ Childcare or Family Care: No Living arrangements: with roommate(s) Gender identity (if verbalized by the patient): Female Spiritual care concerns: No Meds Home Medications and Allergies Home Medications ?Medication ?Instructions ?Recorded ?Confirmed ?Type gabapentin 300 mg capsule 300 mg PO BID #30 caps 06/12/22 10/20/24 Rx ezetimibe 10 mg tablet 10 mg PO DAILY 06/25/22 10/20/24 History rosuvastatin 5 mg tablet 5 mg PO DAILY 06/25/22 10/20/24 History tramadol 50 mg tablet 50 mg PO Q6H PRN Pain 11/07/22 10/20/24 History dextroamphetamine-amphetamine 15 15 mg PO QAM #30 tabs 06/15/23 10/20/24 Rx mg tablet (Adderall) oxycodone-acetaminophen 5 mg-325 1 tablet PO Q6H PRN pain #10 tabs 05/18/24 10/20/24 Rx mg tablet (Percocet) fluticasone propionate 50 See Rx Instructions .Route 09/15/24 10/20/24 Rx mcg/actuation nasal .COMPLEX #16 grams spray,suspension clindamycin HCl 300 mg capsule 300 mg PO BID 10/20/24 10/20/24 History ferrous fumarate 324 mg (106 mg 324 mg PO WEEKLY 10/20/24 10/20/24 History iron) tablet Allergies Allergy/AdvReac Type Severity Reaction Status Date / Time amoxicillin Allergy Mild Hives Verified 10/20/24 15:13 atomoxetine (From Strattera) AdvReac Mild Dry Mouth Verified 10/20/24 15:13 Vital Signs Vital Signs - 24 hr 11/01/24 11:04 Temperature 36.6 C Pulse Rate 68 Respiratory Rate 16 Blood Pressure 109/61 Pulse Oximetry 99 Oxygen Delivery Room Air Exam Const: Orientation/consciousness: patient oriented x3 Other: Well-developed, well-nourished female in no acute distress. Neck: Thyroid: thyroid normal Lymphatic: no lymphadenopathy noted (in neck, axilla or inguinal nodes) Resp: Effort & Inspection: normal respiratory effort Auscultation: clear to auscultation bilaterally Cardio: Rate: regular rate Rhythm: regular rhythm Heart sounds: S1 normal heart sound present and S2 normal heart sound present GI: Other: ABD: Soft, nontender, nondistended. No guarding or rebound tenderness. No hepatosplenomegaly. : General: Yes no CVA tenderness Other: External genitalia: normal female hair distribution, without lesion. Urethral meatus: no lesion, non prolapsed. Bladder: no mass, nontender Vagina: poorly-estrogenized, without lesion or discharge. No cystocele or rectocele. Cervix: no lesion or discharge. Uterus: small, anteverted, freely mobile, nontender Adnexa: no mass or tenderness. Anus/perineum: no lesions, nontender Back/Spine/Pelvis: Back: no CVA tenderness Skin: General skin exam: normal color and no rashes or lesions noted Neuro: General: patient oriented x3 Extrem: Other: Extremities: nontender with no edema Psych: Mental Status: mental status grossly normal Affect: normal affect Assessment and Plan Assessment and plan (1) Abnormal Pap smear of cervix: Code(s): R87.619 - Unspecified abnormal cytological findings in specimens from cervix uteri Status: Acute Assessment and Plan: A: Persistent abnormal paps, postcoital bleeding, and dyspareunia. P: Have reviewed medical as well as surgical management, and she prefers definitive management with hysterectomy. Specifically, I have offered her robotic assisted total vaginal hysterectomy with bilateral salpingoophorectomy. She understands risks of surgery to include risks of anesthesia, risks of pain, infection, bleeding, blood products, thromboembolic phenomena and damage to adjacent structures such as bowel, bladder, ureters, blood vessels and nerves. She understands all these risks and elects to proceed with surgery. (2) Dyspareunia: Status: Acute (3) Postcoital bleeding: Code(s): N93.0 - Postcoital and contact bleeding Status: Acute
--- NOTE | 2024-11-01 11:44 | WPDHPUPDATE1 ---
History and Physical Update Update Date/Time: 11/01/24 11:44 History and Physical has been reviewed, including an updated exam of the patient. There are NO changes in the patient's condition. Risks, benefits, and alternatives have been discussed and questions answered. Patient agrees to proceed with procedure.
--- NOTE | 2024-11-01 11:47 | P.PNAN_ITS ---
Anes - Initial Pre Proc Eval Procedure: Operation Date: 11/01/24 12:00 Proposed Procedures p Robotic Assisted Total Vaginal Hysterectomy with Bilateral Salpingo Oophorectomy - Pepe Cross MD Date/Time: 11/01/24 11:47 Surgeon: Pepe Cross MD Pre Op Diagnosis: dyspurenia, post coital bleeding, abn pap Patient Data Age: 59 Gender: F Height: 1.63 m Weight: 60.3 kg Last Vital Signs Temp 97.9 F 11/01/24 11:04 Pulse 68 11/01/24 11:04 Resp 16 11/01/24 11:04 BP 109/61 11/01/24 11:04 Pulse Ox 99 11/01/24 11:04 O2 Del Method Room Air 11/01/24 11:04 Allergies Allergy/AdvReac Type Severity Reaction Status Date / Time amoxicillin Allergy Mild Hives Verified 10/20/24 15:13 atomoxetine (From Strattera) AdvReac Mild Dry Mouth Verified 10/20/24 15:13 Home Medications ?Medication ?Instructions ?Recorded ?Confirmed ?Type gabapentin 300 mg capsule 300 mg PO BID #30 caps 06/12/22 10/20/24 Rx ezetimibe 10 mg tablet 10 mg PO DAILY 06/25/22 10/20/24 History rosuvastatin 5 mg tablet 5 mg PO DAILY 06/25/22 10/20/24 History tramadol 50 mg tablet 50 mg PO Q6H PRN Pain 11/07/22 10/20/24 History dextroamphetamine-amphetamine 15 15 mg PO QAM #30 tabs 06/15/23 10/20/24 Rx mg tablet (Adderall) oxycodone-acetaminophen 5 mg-325 1 tablet PO Q6H PRN pain #10 tabs 05/18/24 10/20/24 Rx mg tablet (Percocet) fluticasone propionate 50 See Rx Instructions .Route 09/15/24 10/20/24 Rx mcg/actuation nasal .COMPLEX #16 grams spray,suspension clindamycin HCl 300 mg capsule 300 mg PO BID 10/20/24 10/20/24 History ferrous fumarate 324 mg (106 mg 324 mg PO WEEKLY 10/20/24 10/20/24 History iron) tablet Patient hx anesthesia problems: none Family hx anesthesia problems: none Results Review: All pre-operative results and documents have been reviewed as part of the pre- operative evaluation. [facility] Past Medical History Medical History Abnormal Pap smear of cervix History of LEEP (loop electrosurgical excision procedure) of cervix complicating Colon cancer screening IPMN (intraductal papillary mucinous neoplasm) Elevated AST (SGOT) FHx: pancreatic cancer Attention deficit disorder Memory deficit Decreased leukocytes Liver mass Pancreatic cyst Elevated liver enzymes Congenital absence of one kidney Elevated cholesterol Bacterial sinusitis Hand numbness Carpal tunnel syndrome Cervicalgia Right shoulder pain Trigger finger, left middle finger Palpitations Surgical History Surgical History History of nephrectomy History of hand surgery Right middle finger trigger release History of tonsillectomy Social History Social History Smoking status: Never smoker Alcohol intake: current Drinks per week: 4 Substance use: never Substance use type: does not use Lack of Transportation: No Lack of Food: Never True Current Housing: I Have Housing Concerned About Future Housing: No Difficulty Paying Gas/Electric Bills: No Difficulty Paying for Meds: No Currently Unemployed: No Education: Trade/Vocational Certificate Difficulty w/ Childcare or Family Care: No Living arrangements: with roommate(s) Gender identity (if verbalized by the patient): Female Spiritual care concerns: No Anes - Eval Final PreProcedure Day of Procedure 11/01/24 11:47 Patient weight: normal Heart: murmur Lungs: clear to auscultation Airway: Mallampati scale class II Neurological: alert and oriented Last oral intake: >/= 8 hours ASA classification: II Emergent: no Anesthetic plan: proceed Anesthesia type and monitoring: general and standard monitoring Results Review: All pre-operative results and documents have been reviewed as part of the pre- operative evaluation. Hyperlipidemia, migranes. Pt had a neprectomy as infant, kid fxn nml. Informed Consent: The patient's anesthetic plan and its attendant risks and benefits were discussed with the patient/family/POA. Questions were solicited and answers provided to the satisfaction of the patient/family/POA.
[2024-11-01] MEDS: ceFAZolin 2 GM/D5W 50 ML 2 GM/50 ML BAG IVPB (11:58)
--- NOTE | 2024-11-01 13:40 | W.PM.PROC2 ---
Procedure Note - Detailed Date of Procedure 11/01/24 Pre-op Diagnosis Dyspareunia Postcoital bleeding Persistently abnormal paps Post-op Diagnosis Same Procedure Performed Robotic assisted total vaginal hysterectomy with bilateral salpingo-oophorectomy. Surgeon Pepe Cross MD Anesthesia General Findings Cervix was small, nearly flush with the vaginal wall. Otherwise, uterus, tubes and ovaries unremarkable. Description of Procedure The patient was taken to the operating room where general endotracheal anesthesia was administered. She was prepared and draped in the usual sterile fashion in the dorsal lithotomy position. The bladder was drained with Soares catheter. The cervix was visualized and the anterior lip was grasped using a single-tooth tenaculum. The cervix was gently dilated using Hegar dilators. The ALMA 2 uterine manipulator was then placed and the tenaculum was removed. Gloves were changed and attention was turned to the abdomen. A supraumbilical skin incision was made with the scalpel. The Veress needle was advanced and pneumoperitoneum was administered using carbon dioxide gas. The bladeless trocar was then advanced. Intraperitoneal placement was confirmed using the laparoscope. Lateral ports and an assistant professor of geography port were all placed using bladeless trocars under direct laparoscopic visualization. She was placed in Trendelenburg position and the patient cart was docked. I assumed the console. The left ureter was visualized. The right ureter was presumably obliterated or nonfunctional owing to her history of right nephrectomy as a child. The round ligament on the right was divided. The infundibulopelvic ligament was divided. The broad ligament was divided, skeletonizing the uterine artery on the right. The bladder was reflected away. The left side was similarly dissected. Colpotomy was performed circumferentially. The specimen was removed and passed off to be sent to pathology. The vaginal cuff was reapproximated using 0 Vicryl in interrupted [id number] fashion. The pelvis was irrigated copiously using warmed normal saline. Rigorous hemostasis was assured. HemaDerm was applied to the vaginal cuff. The pedicles were inspected once again. The ports were then withdrawn and the gas was allowed to escape. The skin incisions were reapproximated using 4 0 Monocryl in interrupted subcuticular fashion. Dermaflex was applied externally. Sponge, lap, needle and instrument counts were correct. The patient was awakened and taken to the recovery room in stable condition. I was present and scrubbed through the entire procedure. Implants None Estimated Blood Loss 25 Drains Yes (Soares) Packing No Pathology Yes (Uterus, cervix bilateral tubes and ovaries) Complications None Condition Stable Disposition PACU
--- NOTE | 2024-11-01 13:44 | P.DS_ITS ---
DS: Admitting Diagnosis Discharge Date 11/02/24 Admitting Diagnosis Dyspareunia Postcoital vaginal bleeding Persistently abnormal paps DS: Discharge Diagnosis Discharge Diagnosis (1) Abnormal Pap smear of cervix: Code(s): R87.619 - Unspecified abnormal cytological findings in specimens from cervix uteri Status: Acute (2) Dyspareunia: Status: Acute (3) Postcoital bleeding: Code(s): N93.0 - Postcoital and contact bleeding Status: Acute DS: Summary Hospital Course Hospital Course: She underwent robotic assisted TVHBSO and was observed overnight. She did well postoperatively. She tolerated a regular diet. The foote was removed and she voided. Pain was well controlled. She was able to go home on postop day 1. Time Spent with Patient Time attestation: Total time spent providing and/or coordinating discharge services: DS: Data Data Completed and Pending Pending studies at discharge: Pending at discharge 11/01/24 13:16 Surgical [PTH] Routine Discharge Plan Discharge Patient Disposition: Home, Self-Care Discharge Instructions: Nothing in the vagina for 6 weeks.. Call or return if temperature above 100.4? F, increased abdominal pain, increased vaginal bleeding or any new problems. Patient Language: Estonian Stand Alone Forms: General Discharge Instructions Follow-up/Referrals: Pepe Cross MD [Physician] - 2 Weeks Discharge Medications: New oxycodone-acetaminophen [Percocet] 5-325 mg tablet 1 - 2 tablet PO Q6H PRN (Reason: pain) Qty: 30 0RF Continued ezetimibe 10 mg tablet 10 mg PO DAILY Patient Comments: PT HAS HELD MED rosuvastatin 5 mg tablet 5 mg PO DAILY Patient Comments: PT STATES HOLDING ON OWN gabapentin 300 mg capsule 300 mg PO BID Qty: 30 0RF dextroamphetamine-amphetamine [Adderall] 15 mg tablet 15 mg PO QAM Qty: 30 0RF Patient Comments: PT STATES HAS NOT BEGUN THERAPY clindamycin HCl 300 mg capsule 300 mg PO BID ferrous fumarate 324 mg (106 mg iron) tablet 324 mg PO WEEKLY tramadol 50 mg tablet 50 mg PO Q6H PRN (Reason: Pain) fluticasone propionate 50 mcg/actuation spray,suspension See Rx Instructions .ROUTE .COMPLEX Qty: 16 0RF Dose Instruction: SHAKE LIQUID AND USE 2 SPRAYS IN EACH NOSTRIL DAILY Rx Instructions: SHAKE LIQUID AND USE 2 SPRAYS IN EACH NOSTRIL DAILY Discontinued oxycodone-acetaminophen [Percocet] 5-325 mg tablet 1 tablet PO Q6H PRN (Reason: pain) Qty: 10 0RF
--- NOTE | 2024-11-01 14:31 | SUR.PHASEI ---
Anesthesia notified that patient is currently bradycardic. ARA Kohli at bedside evaluating patient. No new orders.
--- NOTE | 2024-11-01 14:47 | PC.NURSE ---
This patient, Henny Garcia, was received from PACU on 11/01/24 at 1447. Patient/family oriented to unit policies and routines
[2024-11-01] MEDS: DEXTROSE 5%/0.45% SOD CHL 1,000 ML 125 ML IV CONT (15:22)
[2024-11-01] MEDS: DOCUSATE SODIUM 100 MG CAPSULE PO (16:46)
[2024-11-01] MEDS: SIMETHICONE 80 MG TAB.CHEW PO (16:46)
[2024-11-01] MEDS: KETOROLAC 30 MG/ML VIAL (*BKC) IV PUSH ×2 (16:47→22:30)
[2024-11-02 00:45] VITALS: BP 91/56; PULSE 64; RESP 16; TEMP 36.6; O2SAT 97
[2024-11-02 04:30] VITALS: BP 106/63; PULSE 54; RESP 16; TEMP 36.7; O2SAT 98
[2024-11-02] MEDS: ACETAMINOPHEN 500 MG TABLET 1000 MG PO (04:35)
[2024-11-02] MEDS: KETOROLAC 30 MG/ML VIAL (*BKC) IV PUSH (04:35)
[2024-11-02 04:55] LABS: Basophils Percent Auto 0.2 % (0.2-1.2); Hematocrit 34.6 % (37.0-47.0); Hemoglobin 11.4 g/dL (12.0-15.0); Immature Granulocyte Absolute 0.03 K/mm3 (0.00-0.031); Immature Granulocyte Percent A 0.5 % (0-0.5); Mean Corpuscular HGB Conc 32.9 g/dl (32-36); Mean Corpuscular Hemoglobin 31.8 pg (26-34); Mean Corpuscular Volume 96.4 fl (80-100); Mean Platelet Volume 9.5 fl (7.4-10.4); Monocytes Absolute Auto 0.4 K/mm3 (0.1-0.6); Monocytes Percent Auto 6.8 % (2.6-8.5); Neutrophils Absolute Auto 4.6 K/mm3 (1.3-6.7); Neutrophils Percent Auto 73.5 % (45.5-73.1); Platelet Count Result 166 k/mm3 (150-375); Red Blood Count 3.59 M/mm3 (4.2-5.4); Red Cell Distribution Width 14.3 % (11.5-14.5); White Blood Count 6.3 K/mm3 (4.5-10.0)
[2024-11-02] MEDS: ENOXAPARIN 40 MG/0.4 ML SYRINGE SUB-Q (07:32)
[2024-11-02] MEDS: DOCUSATE SODIUM 100 MG CAPSULE PO (07:33)
[2024-11-02] MEDS: SIMETHICONE 80 MG TAB.CHEW PO (07:33)
[2024-11-02 07:50] VITALS: BP 111/70; PULSE 55; RESP 16; TEMP 36.9; O2SAT 97
--- NOTE | 2024-11-02 08:57 | PM.GYNPNOP ---
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 P: Home to f/u 2 weeks. 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 Tolerating diet. Voiding. Would like to go home. Exam Narrative: AVSS I/O OK ABD soft, nontender. Incisions c/d/i. 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 - PN: Obj Data Vital Signs Vital Signs: Vital Signs - 24 hr 11/01/24 11:04 11/01/24 13:48 11/01/24 13:57 Temperature 36.6 C 36.2 C L Pulse Rate 68 58 L Respiratory Rate 16 12 Blood Pressure 109/61 100/60 Pulse Oximetry 99 98 100 Oxygen Delivery Room Air Simple Face Mask Simple Face Mask Oxygen Flow Rate 8 8 11/01/24 14:00 11/01/24 14:15 11/01/24 14:30 Temperature Pulse Rate 53 L 51 L 47 L Respiratory Rate 18 12 12 Blood Pressure 118/73 124/74 118/67 Pulse Oximetry 100 100 97 Oxygen Delivery Simple Face Mask Room Air Room Air Oxygen Flow Rate 8 11/01/24 14:51 11/01/24 19:55 11/02/24 00:45 Temperature 36.0 C L 36.6 C 36.6 C Pulse Rate 46 L 54 L 64 Respiratory Rate 14 16 16 Blood Pressure 117/66 99/61 L 91/56 L Pulse Oximetry 100 100 97 Oxygen Delivery Oxygen Flow Rate 11/02/24 04:30 11/02/24 07:50 Temperature 36.7 C 36.9 C Pulse Rate 54 L 55 L Respiratory Rate 16 16 Blood Pressure 106/63 111/70 Pulse Oximetry 98 97 Oxygen Delivery Oxygen Flow Rate Intake/Output Intake/Output: Intake & Output 10/30/24 10/31/24 11/01/24 11/02/24 23:59 23:59 23:59 23:59 Intake Total 2340 1100 Output Total 1125 1000 Balance 1215 100 Meds/Results Medications: Active Medications Generic Name Dose Route Start Last Admin Trade Name Freq PRN Reason Stop Dose Admin Acetaminophen 1,000 mg 11/01/24 18:00 11/02/24 04:35 Acetaminophen 500 Mg Tablet PO 1,000 mg Q6HR MILLER Administration Docusate Sodium 100 mg 11/01/24 17:00 11/02/24 07:33 Docusate Sodium 100 Mg Capsule PO 100 mg BID MILLER Administration Enoxaparin Sodium 40 mg 11/02/24 09:00 11/02/24 07:32 Enoxaparin 40 Mg/0.4 Ml Syringe SUB-Q 40 mg Q24H MILLER Administration Fluticasone Propionate 2 spray 11/02/24 09:00 Fluticasone Propionate 0.05% Na Spr 16 Gm Btl (*Bkc) NASAL DAILY [facility] Ibuprofen 600 mg 11/02/24 12:00 Ibuprofen 600 Mg Tablet PO Q6HR [facility] Oxycodone HCl 5 mg 11/01/24 14:42 Oxycodone Hcl (*Crx) 5 Mg Tab Ir PO Q4H PRN Pain Rated 4-6 Oxycodone HCl 10 mg 11/01/24 14:42 Oxycodone Hcl (*Crx) 5 Mg Tab Ir PO Q6H PRN Pain Rated 7-10 Simethicone 80 mg 11/01/24 17:00 11/02/24 07:33 Simethicone 80 Mg Tab.Chew PO 80 mg TIDWM MILLER Administration Labs 11/02/24 04:42 Labs: Laboratory Results - last 24 hr 11/02/24 04:42 WBC 6.3 RBC 3.59 L Hgb 11.4 L Hct 34.6 L MCV 96.4 MCH 31.8 MCHC 32.9 RDW 14.3 Plt Count 166 MPV 9.5 Immature Gran % (Auto) 0.5 Neut % (Auto) 73.5 H Lymph % (Auto) 19.0 [place] % (Auto) 6.8 Eos % (Auto) 0.0 Baso % (Auto) 0.2 Lymph # (Auto) 1.20 [place] # (Auto) 0.4 Eos # (Auto) 0.0 Baso # (Auto) 0.0 Abs Immat Gran (auto) 0.03 Absolute Neuts (auto) 4.6 Absolute Nucleated RBC 0.000 Nucleated RBC % 0.0
== END 2024-11-02 10:11 | disposition home or self-care (01) ==
LOC: ANHSURGERY 13:46 → ANHOB2 14:43
PROVIDERS: PCP Family Medicine; Visit Provider Obstetrics & Gynecology
PROC: (CPT 58552; principal; 2024-11-01 12:00)
DX: R87.619 Unspecified abnormal cytological findings in specimens from cervix uteri (principal); N93.0 Postcoital and contact bleeding; G89.18 Other acute postprocedural pain; E78.00 Pure hypercholesterolemia, unspecified; R00.2 Palpitations; F98.8 Other specified behavioral and emotional disorders with onset usually occurring in childhood and adolescence; I69.911 Memory deficit following unspecified cerebrovascular disease; D72.819 Decreased white blood cell count, unspecified; Z79.891 Long term (current) use of opiate analgesic; Z98.890 Other specified postprocedural states; Z90.5 Acquired absence of kidney; Z80.0 Family history of malignant neoplasm of digestive organs
CPT/HCPCS: 58552; S2900; 36415; 85025; 88307; 99199; A9270; J0690; J1100; J1171; J1650; J1885; J2003; J2250; J2405; J2704; J3010; J7030; J7120

== ENCOUNTER 2025-02-16 13:04 | Outpatient (CLI) | payer OTHER, SELFPAY ==
--- OUTSIDE RECORDS SUMMARY | 2025-02-16 13:08 | XMS_ITS | Clinical Summary ---
Author Organization [facility] Address Formerly [facility] [place] [address] Care Team Providers Care Telephone Directory Distributor Driver Name Role Phone Michael Li MD Primary Care Provider [phone] Encounters Date Type Department Care Team Description 12/22/2024 9:40 AM CDT - 12/22/2024 11:59 PM CDT Hospital Encounter [facility] [address] [place] [address] Rios Heart MD Discharge Disposition: Home or Self Care (Routine Discharge) 12/22/2024 Travel from Last 3 Months Social History Tobacco Use Types Packs/Day Years Used Date Smoking Tobacco: Never Assessed Comments Unknown Sex and Gender Information Value Date Recorded Sex Assigned at Female 12/19/2024 4:26 PM CDT Legal Sex Female 4:22 PM CDT Gender Identity Not on file Sexual Orientation Not on file Plan of Treatment Health Maintenance Due Date Last Done Comments Cervical Cancer Screening Pap Smear (Age 30 to 64) Every 3 Years 1966 Colorectal Cancer Screening Colonoscopy (10 Years) 1966 Annual Physical 1969 Hepatitis C 1984 Hepatitis B Vaccines (1 of 3 - 19+ 3-dose series) 1985 Cervical Cancer Screening Pap with HPV Testing (Age 30 to 64) Every 5 Years 1996 Cervical Cancer Screening with HPV 1996 Pneumococcal Vaccine: 50+ Years (1 of 1 - PCV) 2016 Zoster Vaccines (2 of 2) 09/27/2019 08/02/2019 COVID-19 Vaccine ( - 2023- season) 2024 Mammogram Screening 12/03/2025 12/04/2023, 12/04/2022, 08/27/2022, Additional history exists DTaP, Tdap and Td Vaccines (3 - Td or Tdap) 08/02/2030 08/02/2020, 05/07/2012 Meningococcal B Vaccine Aged Out No l onger eligible based on patient's age to complete this topic Meningococcal Vaccine Aged Out No nikunj marcos eligible based on patient's age to complete this topic RSV Immunizations Under 20 Months Aged Out No longer eligible based on patient's age to complete this topic Procedures Procedure Name Priority Date/Time Associated Diagnosis Comments CT HEART SCREEN CALCIUM SCORE PROMO Routine 12/22/2024 9:55 AM CDT Screening for heart disease from Last 3 Months Results * CT HEART SCREEN CALCIUM SCORE PROMO (12/22/2024 9:55 AM CDT) Anatomical Region Laterality Modality Chest Computed Tomogra phy 12/27/2024 1:25 PM CDT Impressions 12/27/2024 1:26 PM CDT =====IMPRESSION:===== Total Score: 30 Mild plaque, moderate risk, low likelihood of significant stenosis (<50%). Ordered By: RIOS HEART Interpreted By: Nima Epps MD, 12/27/2024 1:25 PM Narrative 12/27/2024 1:26 PM CDT [address] [address] EXAMINATION: Multislice Helical CT Coronary Calcium Scoring REASON FOR EXAM: Screening for heart disease COMPARISON: None TECHNIQUE: Multislice helical CT images of the proximal coronary arteries with a computer generated calcification score. A dose lowering technique was used for this procedure, which may include, but is not limited to, dose reduction technique, automated exposure control, iterative reconstruction, ALARA (As Low As Reasonably Achievable), or Image Gently techniques. Results: Left main: 0 LAD: 30 Circumflex: 0 Right coronary: 0 Total Score: 30 Comments: There is no mediastinal adenopathy, and there are no pulmonary nodules in the visualized portions of the chest. Calcium score guidelines: Total Score* Calcium Plaque [place] *Risk *Probability of significant CAD 0 No Plaque Very Low Very unlikely 1-10 Minimal Plaque Low Unlikely 11-100 Mild Plaque Moderate Low likelihood of significant stenosis <50% 101-400 Moderate Plaque Moderately High Moderate likelihood of significant stenosis (>50%) Over 400 Extensive Plaque High High likelihood of significant stenosis (>50%) The amount of coronary artery calcification correlates with the severity of coronary atherosclerosis and the probability of future significant event. Calcification is not site specific for stenosis and does not identify non-calcified atherosclerotic plaque, but rather indicates the extent of atherosclerosis in the coronary arteries overall. The score may be used as an indicator for risk factor modification or additional cardiac testing. Significant change in calcium score over time may be indicative of subsequent disease development or useful as a benchmark to assess preventative programs. Procedure Note Nima Epps MD - 12/27/2024 [id number] [place] [address] EXAMINATION: Multislice Helical CT Coronary Calcium Scoring REASON FOR EXAM: Screening for heart disease COMPARISON: None TECHNIQUE: Multislice helical CT images of the proximal coronary arterieswith a computer generated calcification score. A dose lowering techniquewas used for this procedure, which may include, but is not limited to,dose reduction technique, automated exposure control, iterativereconstruction, ALARA (As Low As Reasonably Achievable), or Image Gentlytechniques. Results: Left main: 0 LAD: 30 Circumflex: 0 Right coronary: 0 Total Score: 30 Comments: There is no mediastinal adenopathy, and there are no pulmonarynodules in the visualized portions of the chest. Calcium score guidelines: Total Score* Calcium Plaque [place] *Risk *Probability ofsignificant CAD 0 No Plaque Very LowVery unlikely 1-10 Minimal Plaque LowUnlikely 11-100 Mild Plaque ModerateLow likelihood of significant stenosis <50% 101-400 Moderate Plaque Moderately HighModerate likelihood of significant stenosis (>50%) Over 400 Extensive Plaque HighHigh likelihood of significant stenosis (>50%) The amount of coronary artery calcification correlates with the severityof coronary atherosclerosis and the probability of future significantevent. Calcification is not site specific for stenosis and does notidentify non-calcified atherosclerotic plaque, but rather indicates theextent of atherosclerosis in the coronary arteries overall. The score may be used as an indicator for risk factor modification oradditional cardiac testing. Significant change in calcium score over timemay be indicative of subsequent disease development or useful as abenchmark to assess preventative programs. =====IMPRESSION:===== Total Score: 30 Mild plaque, moderate risk, low likelihood of significantstenosis (<50%). Ordered By: RIOS HEART Interpreted By: Nima Epps MD, 12/27/2024 1:25 PM us Rios Heart MD CT Final Res ult from Last 3 Months Insurance ONYX Care Teams Telephone Directory Distributor Driver Relationship Specialty Start Date End Date Michael Li MD [address] [place] [address] PCP - General FAMILY PRACTICE 12/21/24
--- OUTSIDE RECORDS SUMMARY | 2025-02-16 13:08 | XMS_ITS | Encounter Summary ---
Author Organization [facility] Address [address] [place] [address] Phone Care Team Providers Care International Logistics Analyst Name Role Phone Nishi Olsen MD Primary Care Provider [phone] Pepe Cross MD Unavailable [phone] Everardo CHANDLER MD, Román Pérez Unavailable +- [phone] Bel Romero Unavailable [phone] Román Acosta MD Unavailable [phone] Maynor العراقي MD Unavailable [phone] Corazon Wellington MD Unavailable [phone] Unknown, Notinfile Primary Care Provider Unavail able Michael Li MD Primary Care Provider [phone] Encounter Details Date Type Department Care Team (Late st Contact Info) Description 04/19/2020 Orders Only [facility] [address] [place] [address] Scanning, Provider Social History Tobacco [...] on file Legal Sex Female 3:58 PM 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 TEST 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 Gender Identity Female 03/02/2020 7:16 AM CDT [...] documented as of this encounter Care Teams International Logistics Analyst Relationship Specialty Start Date End Date Nishi Olsen MD PCP - General 10/31/16 12/01/22 Unknown, Notinfile PCP - General 01/31/23 07/06/24 Michael Li MD [address] [place] [address] PCP - General Family Practice 07/07/24 Pepe Cross MD [address] [address] Obstetrics and Gynecology 08/24/17 Román Mcgee III, MD [address] [address] Surgeon Plastic Surgery 08/24/18 Bel Romero PA [address] [address] Orthopedic Surgery 07/25/20 12/04/20 Román Acosta MD [address] [address] Surgeon Orthopedic Surgery 12/05/20 Maynor العراقي MD [address] [address] Consulting Physician Cardiology 12/05/20 Corazon Wellington MD [address] [facility] [address] [place] [address] Consulting Physician Gastroenterology 12/05/20 documented as of this encounter
--- OUTSIDE RECORDS SUMMARY | 2025-02-16 13:08 | XMS_ITS | Encounter Summary ---
Author Organization [facility] Address [address] [facility] [address] [place] [address] Phone Care Team Providers Care Plumbing Service Technician Name Role Phone Camilo Chisholm MD [facility] Michael Erazo MD Primary Care Provider [phone] Reason for Visit * Reason Comments Medication Refill Encounter Details Date Type Department Care Team (Late st Contact Info) Description 10/11/2023 Refill [facility] - Cardiology [facility] [address] [place] [id number] Camilo Chisholm MD Medication Refill Social History [...] Office Visit Camilo Chisholm MD [facility] [place] 08/07/22 Office Visit Camilo Chisholm MD [facility] [place] Showing recent visits within past 548 days [...] Palpitations documented in this encounter Care Teams Plumbing Service Technician Relationship Specialty Start Date End Date Michael Li MD [address] [place] [address] PCP - General Family Medicine 03/31/22 Camilo Chisholm MD Sales Operations Manager Cardiovascular Disease - Cardiology 03/21/22 documented as of this encounter
--- OUTSIDE RECORDS SUMMARY | 2025-02-16 13:08 | XMS_ITS | Encounter Summary ---
Author Organization [facility] Address [address] [place] [address] Phone Care Team Providers Care Negotiations Director Name Role Phone Nishi Olsen MD Primary Care Provider [phone] Pepe Cross MD Unavailable [phone] Everardo CHANDLER MD, Román Pérez Unavailable +- [phone] Bel Romero Unavailable +[phone] Román Acosta MD Unavailable [phone] Maynor العراقي MD Unavailable [phone] Corazon Wellington MD Unavailable [phone] Unknown, Notinfile Primary Care Provider Unavail able Michael Li MD Primary Care Provider [phone] Encounter Details Date Type Department Care Team (Late st Contact Info) Description 04/10/2020 Orders Only [facility] [address] [place] [address] Scanning, Provider Social History Tobacco [...] on file Legal Sex Female 3:58 PM CORPORATE FINANCIAL ANALYST Gender Identity Female 03/02/2020 7:16 AM [...] documented as of this encounter Care Teams Negotiations Director Relationship Specialty Start Date End Date Nishi Olsen MD PCP - General 10/31/16 12/01/22 Unknown, Notinfile PCP - General 01/31/23 07/06/24 Michael Li MD [address] [place] [address] PCP - General Family Practice 07/07/24 Pepe Cross MD [address] [address] Obstetrics and Gynecology 08/24/17 Román Mcgee III, MD [address] [address] Surgeon Plastic Surgery 08/24/18 Bel Romero PA [address] [address] Orthopedic Surgery 07/25/20 12/04/20 Román Acosta MD [address] [address] Surgeon Orthopedic Surgery 12/05/20 Maynor العراقي MD [address] [address] Consulting Physician Cardiology 12/05/20 Corazon Wellington MD [address] [facility] [address] [place] [address] Consulting Physician Gastroenterology 12/05/20 documented as of this encounter
--- OUTSIDE RECORDS SUMMARY | 2025-02-16 13:08 | XMS_ITS | Encounter Summary ---
Author Organization [facility] Address [address] [facility] Attn: Epic Prelude ADT [place] [address] Care Team Providers Care Machine Washer Name Role Phone Unavailable Primary Care Provider [...] on file Legal Sex Female 4:09 AM DOOR PULLER Gender Identity Not on file Sexual Orientation Not on file documented as of this encounter Plan of Treatment Not on file documented as of this encounter Visit Diagnoses Not on filedocumented in this encounter
--- OUTSIDE RECORDS SUMMARY | 2025-02-16 13:08 | XMS_ITS | Clinical Summary ---
Author Organization [facility] [address] Address [address] [place] [address] Phone Care Team Providers Care Tax Professional Name Role Phone Pepe Cross MD Unavailable [phone] Everardo CHANDLER MD, Román Pérez Unavailable [phone] Román Acosta MD Unavailable Maynor العراقي MD Unavailable [phone] Corazon Wellington MD Unavailable [phone] Michael Li MD Primary Care Provider [phone] Allergies Active Allergy Reactions Criticality Noted Date [...] (06/25/2020): Added automatically from request for surgery [id number] Wound dehiscence 04/20/2020 12/05/2020 Hip pain, left [...] needed Assessment & Plan (07/15/2018 3:02 PM REMOTE RUBY ON RAILS DEVELOPER): Catching/triggering/painful intermittently, gradually worsening Steroid injection today [...] 05/07/2012 021 Overview (11/07/2016): Vitamin d deficiency Encounters Date Type Department Care Team Description 01/06/2025 9:03 AM CDT - 01/06/2025 11:59 PM CDT Hospital Encounter [facility] [address] [place] [address] Pain Discharge Disposition: Discharge to home or self care from Last 3 Months Immunizations Immunization Administration Dates Next Due Influenza, [...] Other Medical high cholestero l/; Comments: [facility] 07/05/2014 - Hx Other Medical kidney surgery; Comments: [facility] 07/05/2014 - Hx Other Medical Under-developed kidney [...] Former Smokeless Tobacco: Never Tobacco Cessation:Counseling Given: Not Answered Alcohol Use Standard Drinks/Week Comments Yes 4 (1 standard drink = 0.6 oz pur e alcohol) occasional/social PHQ-2 Answer Date Recorded PHQ-2 Total Score (If total score is 3 or more points, staff should administer the PHQ-9) 0 12/11/2021 Comments No Sex and Gender Information Value Date Recorded Sex Assigned at Not on file Legal Sex Female 3:58 PM REMOTE RUBY [employer] RAILS DEVELOPER Gender Identity Female 03/02/2020 7:16 AM CDT [...] 11:38 AM CDT Height 162.6 cm (5' 4) 03/05/2022 11:38 AM CDT Body Mass Index 23.96 03/05/2022 11:38 AM CDT Plan of Treatment Health Maintenance Due Date Last Done Comments Hepatitis B Screening 1983 Cervical Cancer Screening 07/07/2017 07/07/2016 Zoster Vaccine (2 of 2) 09/27/2019 08/02/2019 Depression Screening 12/11/2022 12/11/2021, 12/05/2020, 11/08/2019 Regular Well Visit/Exam 18-64 12/11/2022 12/11/2021, 12/05/2020, 11/08/2019, Additional history exists Breast Cancer Screening-Mammogram 12/03/2024 12/04/2023, 12/04/2023, 12/04/2022, Additional history exists Influenza Vaccine (#1) 2025 0, 05/30/2016, 05/30/2015, Additional history exists Colon Cancer Screening-Colonoscopy 12/16/2027 [...] Procedure Name Priority Date/Time Associated Diagnosis Comments XR PELVIS 1 OR 2 VIEWS Schedule Routine, Read Routine (OP Routine) 01/06/2025 9:49 AM CDT Pain XR SPINE LUMBAR W BENDING 6 OR MORE VIEWS Schedule Routine, Read Routine (OP Routine) 01/06/2025 9:49 AM CDT Pain XR SPINE THORACIC 3 VIEWS Schedule Routine, Read Routine (OP Routine) 01/06/2025 9:49 AM CDT Pain XR SPINE CERVICAL W FLEXION AND EXTENSION 4 VIEWS Schedule Routine, Read Routine (OP Routine) 01/06/2025 9:49 AM CDT Pain HEPATITIS C ANTIBODY Routine 08/23/2018 2:24 PM REMOTE RUBY ON RAILS DEVELOPER COLONOSCOPY 12/15/2017 11:42 AM CDT THINPREP IMAGING PAP REFLEX HPV MRNA E6/E7 Routine 07/07/2016 10:12 AM REMOTE RUBY ON RAILS DEVELOPER from Last 3 Months or Most Recently Relevant to Health Maintenance Results * XR Pelvis 1 or 2 Views (01/06/2025 9:49 AM CDT) Anatomical Region Laterality Modality Body, Pelvis N/A Computed Radiogr aphy 01/07/2025 9:44 AM CDT Narrative 01/07/2025 9:46 AM CDT EXAM DESCRIPTION: XR PELVIS 1 OR 2 VIEWS REASON FOR STUDY: other C/o pain to the right shoulder/hip x couple of months since around may 2024 Some numbness to right hand Tingling to rt shoulder Limited range of motion on rt shoulder FINDINGS: Single-view submitted with comparison 03/06/2020. No acute fracture. Alignment is normal. Mild bilateral hip osteoarthritis. IMPRESSION: Mild bilateral hip osteoarthritis. THIS IS AN ELECTRONICALLY VERIFIED FINAL REPORT 01/07/2025 9:46 AM - Electronically signed by Segun Almazan M.D. MF: [email or web address] Report ID: [id number] Reading Location: [id number] Procedure Note Segun Almazan MD - 01/07/2025 EXAM DESCRIPTION: XR PELVIS 1 OR 2 VIEWS REASON FOR STUDY: other C/o pain to the right shoulder/hip x couple of months since around Some numbness to right hand Tingling to rt shoulder Limited range ofmotion on rt shoulder FINDINGS: Single-view submitted with comparison 03/06/2020. No acute fracture. Alignment is normal. Mild bilateral hiposteoarthritis. IMPRESSION: Mild bilateral hip osteoarthritis. THIS IS AN ELECTRONICALLY VERIFIED FINAL REPORT 01/07/2025 9:46 AM - Electronically signed by Segun Almazan M.D. MF: [email or web address] Report ID: [id number] Reading Location: [id number] Kolby Good [place] [facility] [place]ED[place] Final Result * XR Spine Cervical W Flexion And Extension 4 or 5 Views (01/06/2025 9:49 AM CDT) Anatomical Region Laterality Modality Spine N/A Computed Radiogr aphy 01/07/2025 9:40 AM CDT Narrative 01/07/2025 9:44 AM CDT EXAM DESCRIPTION: XR SPINE CERVICAL W FLEXION AND EXTENSION 4 5 VIEWS; XR SPINE THORACIC 3 VIEWS; XR SPINE LUMBAR W BENDING 6 OR MORE VIEWS REASON FOR STUDY: other C/o pain to the right shoulder/hip x couple of months since around may 2024 Some numbness to right hand Tingling to rt shoulder Limited range of motion on rt shoulder FINDINGS: 5 views cervical spine, three views thoracic spine and 7 views lumbar spine submitted with comparison 05/23/2024. Cervical spine: No acute fracture. No prevertebral soft tissue swelling. Mild cervical kyphosis. Mild C3-C4 and vope-la-fgazlcka C4-C7 degenerative disc disease. Flexion-extension views demonstrate mild anterolisthesis of C3 on C4. The lateral masses of C1 properly articulate on C2. Bilateral cervical facet osteoarthritis. Multilevel mid and inferior cervical uncovertebral osteoarthritis. Thoracic spine: No acute fracture. Mild multilevel midthoracic degenerative disc disease. Long segment levoscoliosis of the thoracolumbar junction. Lumbar spine: Mild rotary dextrocurvature of the lumbar spine. Mild L3-L4 and severe L5-S1 degenerative disc disease with inferior lumbar facet osteoarthritis. Flexion-extension views demonstrate no abnormal translation. IMPRESSION: Umiy-db-gxnvqffq C3-C7 degenerative disc disease with bilateral cervical facet osteoarthritis and multilevel mid and inferior cervical uncovertebral osteoarthritis. Mild multilevel midthoracic degenerative disc disease. Mild L3-L4 and severe L5-S1 degenerative disc disease with inferior lumbar facet osteoarthritis. THIS IS AN ELECTRONICALLY VERIFIED FINAL REPORT 01/07/2025 9:44 AM - Electronically signed by Segun Almazan M.D. MF: [email or web address] Report ID: [id number] Reading Location: [id number] Procedure Note Segun Almazan MD - 01/07/2025 EXAM DESCRIPTION: XR SPINE CERVICAL W FLEXION AND EXTENSION 4 5 VIEWS; XR SPINE THORACIC 3 VIEWS; XR SPINE LUMBAR W BENDING 6 OR MORE VIEWS REASON FOR STUDY: other C/o pain to the right shoulder/hip x couple of months since around Some numbness to right hand Tingling to rt shoulder Limited range ofmotion on rt shoulder FINDINGS: 5 views cervical spine, three views thoracic spine and 7 views lumbarspine submitted with comparison 05/23/2024. Cervical spine: No acute fracture. No prevertebral soft tissue swelling. Mild cervical kyphosis. Mild C3-C4 and invk-hb-klxbhejx C4-C7 degenerative discdisease. Flexion-extension views demonstrate mild anterolisthesis of C3 on C4. The lateral masses of C1 properly articulate on C2. Bilateral cervical facet osteoarthritis. Multilevel mid and inferior cervical uncovertebral osteoarthritis. Thoracic spine: No acute fracture. Mild multilevel midthoracic degenerative disc disease. Long segment levoscoliosis of the thoracolumbar junction. Lumbar spine: Mild rotary dextrocurvature of the lumbar spine. Mild L3-L4 and severeL5-S1 degenerative disc disease with inferior lumbar facet osteoarthritis. Flexion-extension views demonstrate no abnormal translation. IMPRESSION: Xhwy-mf-isfncwjw C3-C7 degenerative disc disease with bilateral cervical facet osteoarthritis and multilevel mid and inferior cervicaluncovertebral osteoarthritis. Mild multilevel midthoracic degenerative disc disease. Mild L3-L4 and severe L5-S1 degenerative disc disease with inferiorlumbar facet osteoarthritis. THIS IS AN ELECTRONICALLY VERIFIED FINAL REPORT 01/07/2025 9:44 AM - Electronically signed by Segun Almazan M.D. MF: [email or web address] Report ID: [id number] Reading Location: [id number] Kolby Good [facility] IM[facility] XR PROCEDURES Final Result * XR Spine Lumbar W Bending 6 or More Views (01/06/2025 9:49 AM CDT) Anatomical Region Laterality Modality Spine N/A Computed Radiogr aphy 01/07/2025 9:40 AM CDT Narrative 01/07/2025 9:44 AM CDT EXAM DESCRIPTION: XR SPINE CERVICAL W FLEXION AND EXTENSION 4 5 VIEWS; XR SPINE THORACIC 3 VIEWS; XR SPINE LUMBAR W BENDING 6 OR MORE VIEWS REASON FOR STUDY: other C/o pain to the right shoulder/hip x couple of months since around may 2024 Some numbness to right hand Tingling to rt shoulder Limited range of motion on rt shoulder FINDINGS: 5 views cervical spine, three views thoracic spine and 7 views lumbar spine submitted with comparison 05/23/2024. Cervical spine: No acute fracture. No prevertebral soft tissue swelling. Mild cervical kyphosis. Mild C3-C4 and sdpc-ue-domlifit C4-C7 degenerative disc disease. Flexion-extension views demonstrate mild anterolisthesis of C3 on C4. The lateral masses of C1 properly articulate on C2. Bilateral cervical facet osteoarthritis. Multilevel mid and inferior cervical uncovertebral osteoarthritis. Thoracic spine: No acute fracture. Mild multilevel midthoracic degenerative disc disease. Long segment levoscoliosis of the thoracolumbar junction. Lumbar spine: Mild rotary dextrocurvature of the lumbar spine. Mild L3-L4 and severe L5-S1 degenerative disc disease with inferior lumbar facet osteoarthritis. Flexion-extension views demonstrate no abnormal translation. IMPRESSION: Mdup-bk-jtuaomus C3-C7 degenerative disc disease with bilateral cervical facet osteoarthritis and multilevel mid and inferior cervical uncovertebral osteoarthritis. Mild multilevel midthoracic degenerative disc disease. Mild L3-L4 and severe L5-S1 degenerative disc disease with inferior lumbar facet osteoarthritis. THIS IS AN ELECTRONICALLY VERIFIED FINAL REPORT 01/07/2025 9:44 AM - Electronically signed by Segun Almazan M.D. MF: [email or web address] Report ID: [id number] Reading Location: [place] [address] Procedure Note Segun Almazan MD - 01/07/2025 EXAM DESCRIPTION: XR SPINE CERVICAL W FLEXION AND EXTENSION 4 5 VIEWS; XR SPINE THORACIC 3 VIEWS; XR SPINE LUMBAR W BENDING 6 OR MORE VIEWS REASON FOR STUDY: other C/o pain to the right shoulder/hip x couple of months since around Some numbness to right hand Tingling to rt shoulder Limited range ofmotion on rt shoulder FINDINGS: 5 views cervical spine, three views thoracic spine and 7 views lumbarspine submitted with comparison 05/23/2024. Cervical spine: No acute fracture. No prevertebral soft tissue swelling. Mild cervical kyphosis. Mild C3-C4 and burp-xf-lqrgcdyk C4-C7 degenerative discdisease. Flexion-extension views demonstrate mild anterolisthesis of C3 on C4. The lateral masses of C1 properly articulate on C2. Bilateral cervical facet osteoarthritis. Multilevel mid and inferior cervical uncovertebral osteoarthritis. Thoracic spine: No acute fracture. Mild multilevel midthoracic degenerative disc disease. Long segment levoscoliosis of the thoracolumbar junction. Lumbar spine: Mild rotary dextrocurvature of the lumbar spine. Mild L3-L4 and severeL5-S1 degenerative disc disease with inferior lumbar facet osteoarthritis. Flexion-extension views demonstrate no abnormal translation. IMPRESSION: Trdo-nd-roxsuaex C3-C7 degenerative disc disease with bilateral cervical facet osteoarthritis and multilevel mid and inferior cervicaluncovertebral osteoarthritis. Mild multilevel midthoracic degenerative disc disease. Mild L3-L4 and severe L5-S1 degenerative disc disease with inferiorlumbar facet osteoarthritis. THIS IS AN ELECTRONICALLY VERIFIED FINAL REPORT 01/07/2025 9:44 AM - Electronically signed by Segun Almazan M.D. MF: [email or web address] Report ID: [id number] Reading Location: [place] [address] Kol[facility] Good [facility] IMG XR PROCEDURES Final Result * XR Spine Thoracic 3 Vw (01/06/2025 9:49 AM CDT) Anatomical Region Laterality Modality Spine N/A Computed Radiogr aphy 01/07/2025 9:40 AM CDT Narrative 01/07/2025 9:44 AM CDT EXAM DESCRIPTION: XR SPINE CERVICAL W FLEXION AND EXTENSION 4 5 VIEWS; XR SPINE THORACIC 3 VIEWS; XR SPINE LUMBAR W BENDING 6 OR MORE VIEWS REASON FOR STUDY: other C/o pain to the right shoulder/hip x couple of months since around may 2024 Some numbness to right hand Tingling to rt shoulder Limited range of motion on rt shoulder FINDINGS: 5 views cervical spine, three views thoracic spine and 7 views lumbar spine submitted with comparison 05/23/2024. Cervical spine: No acute fracture. No prevertebral soft tissue swelling. Mild cervical kyphosis. Mild C3-C4 and hbrr-jx-cmnirxcy C4-C7 degenerative disc disease. Flexion-extension views demonstrate mild anterolisthesis of C3 on C4. The lateral masses of C1 properly articulate on C2. Bilateral cervical facet osteoarthritis. Multilevel mid and inferior cervical uncovertebral osteoarthritis. Thoracic spine: No acute fracture. Mild multilevel midthoracic degenerative disc disease. Long segment levoscoliosis of the thoracolumbar junction. Lumbar spine: Mild rotary dextrocurvature of the lumbar spine. Mild L3-L4 and severe L5-S1 degenerative disc disease with inferior lumbar facet osteoarthritis. Flexion-extension views demonstrate no abnormal translation. IMPRESSION: Tycb-su-rwhwidvu C3-C7 degenerative disc disease with bilateral cervical facet osteoarthritis and multilevel mid and inferior cervical uncovertebral osteoarthritis. Mild multilevel midthoracic degenerative disc disease. Mild L3-L4 and severe L5-S1 degenerative disc disease with inferior lumbar facet osteoarthritis. THIS IS AN ELECTRONICALLY VERIFIED FINAL REPORT 01/07/2025 9:44 AM - Electronically signed by Segun Almazan M.D. MF: [email or web address] Report ID: [id number] Reading Location: [id number] Procedure Note Segun Almazan MD - 01/07/2025 EXAM DESCRIPTION: XR SPINE CERVICAL W FLEXION AND EXTENSION 4 5 VIEWS; XR SPINE THORACIC 3 VIEWS; XR SPINE LUMBAR W BENDING 6 OR MORE VIEWS REASON FOR STUDY: other C/o pain to the right shoulder/hip x couple of months since around Some numbness to right hand Tingling to rt shoulder Limited range ofmotion on rt shoulder FINDINGS: 5 views cervical spine, three views thoracic spine and 7 views lumbarspine submitted with comparison 05/23/2024. Cervical spine: No acute fracture. No prevertebral soft tissue swelling. Mild cervical kyphosis. Mild C3-C4 and pibv-of-udbljshr C4-C7 degenerative discdisease. Flexion-extension views demonstrate mild anterolisthesis of C3 on C4. The lateral masses of C1 properly articulate on C2. Bilateral cervical facet osteoarthritis. Multilevel mid and inferior cervical uncovertebral osteoarthritis. Thoracic spine: No acute fracture. Mild multilevel midthoracic degenerative disc disease. Long segment levoscoliosis of the thoracolumbar junction. Lumbar spine: Mild rotary dextrocurvature of the lumbar spine. Mild L3-L4 and severeL5-S1 degenerative disc disease with inferior lumbar facet osteoarthritis. Flexion-extension views demonstrate no abnormal translation. IMPRESSION: Taua-ju-uiilzwca C3-C7 degenerative disc disease with bilateral cervical facet osteoarthritis and multilevel mid and inferior cervicaluncovertebral osteoarthritis. Mild multilevel midthoracic degenerative disc disease. Mild L3-L4 and severe L5-S1 degenerative disc disease with inferiorlumbar facet osteoarthritis. THIS IS AN ELECTRONICALLY VERIFIED FINAL REPORT 01/07/2025 9:44 AM - Electronically signed by Segun Almazan M.D. MF: [email or web address] Report ID: [id number] Reading Location: [place] [address] [place] [facility] Good [facility]G XR PROCEDURES Final Result * Hepatitis C antibody (08/23/2018 2:24 PM REMOTE RUBY ON RAILS DEVELOPER) Hep C Ab NON-REACTI VE NON-REACTI VE [facility] SIGNAL TO CUT-OFF 0.01 <1.00 [facility] 08/23/2018 2:24 PM REMOTE RUBY ON RAILS DEVELOPER 08/23/2018 2:25 PM REMOTE RUBY ON RAILS DEVELOPER Narrative Resulting Agency Comment Performing Organization Information: Site ID: [id number] Name: [facility] Address: [address] [facility] [place] [address] Director: Anthony Tyler D.O. MPH us Nishi Olsen MD LAB MICROBIOLOGY - GENERAL ORDERABLES Final Result [facility] * COLONOSCOPY (12/15/2017 11:42 AM CDT) Anatomical Region Laterality Modality Other Narrative Procedure Note Corazon Wellington MD - 12/15/2017 11:42 AM CDT [facility] Patient Name: Hina Garcia Procedure Date: 12/15/2017 11:42 AM Date of : 1965 Admit Type: Outpatient Age: 52 Gender: Female Attending MD: Corazon Wellington M.D. Room: [facility] ENDOS[facility] CAPSULE Note Status: Finalized Patient [...] passed under direct vision.The Pediatric Colonoscope PCF-H190L [id number] was introduced through the anus and advanced [...] showed small internal hemorrhoids. Electronically signed by Corazno Wellington M.D. Corazon Wellington M.D. 12/15/2017 12:16:41 PM Number of Addenda: 0 Note Initiated On: 12/15/2017 11:42 AM Procedure Code(s): --- Professional --- 58839, Colonoscopy, flexible; diagnostic, including collection of specimen(s) by brushing or washing, when performed (separateprocedure) Diagnosis Code(s): --- Professional --- Z12.11, Encounter for screening for malignant neoplasm of colon CPT copyright 2017 [employer]. All rights reserved. The codes documented in this report are preliminary and upon data integration analyst reviewmay be revised to meet current compliance requirements. Recognized by the [employer] for promoting quality in endoscopy us Corazon Wellington MD ENDOSCOPY PROCEDURES Final Result * ThinPrep Imaging Pap Reflex HPV mRNA E6/E7 (07/07/2016 10:12 AM REMOTE RUBY ON RAILS DEVELOPER) SOURCE: SEE NOTE [facility] HISTORICAL RESULTS Comment:Cervix, [...] has been evaluated with computer assisted technology. Occupational Therapy Specialist SEE NOTE [facility] HISTORICAL RESULTS Comment: SHARON, CT(ASCP) CT screening location: [place] [address] [place] [address] Review interior specialist SEE NOTE [facility] HISTORICAL RESULTS Comment: PCM, CT(ASCP) CT screening location: [place] [address] [place] [address] Test performed at [id number] [address] Director: GRETCHEN MOODY MD 07/07/2016 10:1 2 AM REMOTE RUBY ON RAILS DEVELOPER Nishi Olsen MD LAB PATHOLOGY ORDERABLES F inal Result [facility] HISTORICAL RESULTS from Last 3 Months or Most Recently Relevant to Health Maintenance [place] [facility] Advance Directives For more information, please contact: [phone] Documents on File Type Date Recorded Patient Investigator Fraud Expl anation ADVANCE DIRECTIVE 12/11/2021 POWER OF A [employer]NEY[employer] ADVANCE DIRECTIVE 05/07/2012 POWER OF A [employer]NEY[employer]ICAL * Full Code (Latest Code Status on File) Date Activated Date Inactivated Comments 12/15/2017 11:34 AM 12/15/2017 3:09 PM Care Teams Tax Professional Relationship Specialty Start Date End Date Michael Li MD [address] [place] [address] PCP - General Family Practice 07/07/24 Pepe Cross MD [address] [place] [address] Obstetrics and Gynecology 08/24/17 Román Mcgee III, MD [address] [place] [address] Surgeon Plastic Surgery 08/24/18 Román Acosta MD [address] [address] Surgeon Orthopedic Surgery 12/05/20 Maynor العراقي MD [address] [facility] [address] [address] Consulting Physician Cardiology 12/05/20 Corazon Wellington MD [address] [facility] [address] [address] Consulting Physician Gastroenterology 12/05/20
--- OUTSIDE RECORDS SUMMARY | 2025-02-16 13:08 | XMS_ITS | Referral Summary ---
Author Organization [facility] [address] Address [address] [place] [address] Phone Care Team Providers Care Acid Concentrator Name Role Phone Pepe Cross MD Unavailable [phone] Everardo CHANDLER MD, Román Pérez Unavailable [phone] Román Acosta MD Unavailable [phone] Maynor العراقي MD Unavailable [phone] Corazon Wellington MD Unavailable [phone] Michael Li MD Primary Care Provider [phone] Encounters Date Type Department Care Team Description 01/06/2025 9:03 AM CDT - 01/06/2025 11:59 PM CDT Hospital Encounter [facility] [address] [place] [address] Pain Discharge Disposition: Discharge to home or self care from Last 3 Months Allergies Active Allergy Reactions Criticality Noted Date [...] 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 (CMS/[facility]) 04/10/2020 Overview (12/11/2021): (+) coronary calcium score04/13/2020 [...] (06/25/2020): Added automatically from request for surgery [id number] Wound dehiscence 04/20/2020 12/05/2020 Hip pain, left [...] needed Assessment & Plan (07/15/2018 3:02 PM CLAIM REVIEW MEDICAL DIRECTOR): Catching/triggering/painful intermittently, gradually worsening Steroid injection today [...] on file Legal Sex Female 3:58 PM CLAIM REVIEW MEDICAL DIRECTOR Gender Identity Female 03/02/2020 7:16 AM CDT [...] HEPATITIS C ANTIBODY Routine 08/23/2018 2:24 PM CLAIM REVIEW MEDICAL DIRECTOR COLONOSCOPY 12/15/2017 11:42 AM CDT THINPREP IMAGING PAP REFLEX HPV MRNA E6/E7 Routine 07/07/2016 10:12 AM CLAIM REVIEW MEDICAL DIRECTOR from Last 3 Months or Most Recently [...] Segun Almazan M.D. MF: [email or web address] Report ID: [id number] Reading Location: [id number] Procedure Note Segun Almazan MD - 01/07/2025 [...] Segun Almazan M.D. MF: [email or web address] Report ID: [id number] Reading Location: [id number] [facility] Good DC IMG XR PROCEDURES Final [...] swelling. Mild cervical kyphosis. Mild C3-C4 and edim-cp-ltmrqvkx C4-C7 degenerative disc disease. Flexion-extension views demonstrate [...] Flexion-extension views demonstrate no abnormal translation. IMPRESSION: Evbo-pw-hnootnsi C3-C7 degenerative disc disease with bilateral cervical facet osteoarthritis and multilevel mid and inferior cervical uncovertebral osteoarthritis. Mild multilevel midthoracic degenerative disc disease. Mild L3-L4 and severe L5-S1 degenerative disc disease with inferior lumbar facet osteoarthritis. THIS IS AN ELECTRONICALLY VERIFIED FINAL REPORT 01/07/2025 9:44 AM - Electronically signed by Segun Almazan M.D. MF: [email or web address] Report ID: [id number] Reading Location: [address] Note Segun Almazan MD - 01/07/2025 EXAM [...] swelling. Mild cervical kyphosis. Mild C3-C4 and lhoo-ay-xqjckomm C4-C7 degenerative discdisease. Flexion-extension views demonstrate mild [...] Flexion-extension views demonstrate no abnormal translation. IMPRESSION: Vaqh-mr-wdyebxkd C3-C7 degenerative disc disease with bilateral cervical facet osteoarthritis and multilevel mid and inferior cervicaluncovertebral osteoarthritis. Mild multilevel midthoracic degenerative disc disease. Mild L3-L4 and severe L5-S1 degenerative disc disease with inferiorlumbar facet osteoarthritis. THIS IS AN ELECTRONICALLY VERIFIED FINAL REPORT 01/07/2025 9:44 AM - Electronically signed by Segun Almazan M.D. MF: [email or web address] Report ID: [id number] Reading Location: [place] [address] Kol[facility] Good DC IMG XR PROCEDURES Final [...] swelling. Mild cervical kyphosis. Mild C3-C4 and npan-ur-mlbfmvfx C4-C7 degenerative disc disease. Flexion-extension views demonstrate [...] Flexion-extension views demonstrate no abnormal translation. IMPRESSION: Lxeo-ne-zmokfigt C3-C7 degenerative disc disease with bilateral cervical facet osteoarthritis and multilevel mid and inferior cervical uncovertebral osteoarthritis. Mild multilevel midthoracic degenerative disc disease. Mild L3-L4 and severe L5-S1 degenerative disc disease with inferior lumbar facet osteoarthritis. THIS IS AN ELECTRONICALLY VERIFIED FINAL REPORT 01/07/2025 9:44 AM - Electronically signed by Segun Almazan M.D. MF: LIZZY Report ID: [id number] Reading Location: [place] [address] Procedure Note Segun Almazan MD - 01/07/2025 [...] swelling. Mild cervical kyphosis. Mild C3-C4 and wgck-kk-jswmerkg C4-C7 degenerative discdisease. Flexion-extension views demonstrate mild [...] Flexion-extension views demonstrate no abnormal translation. IMPRESSION: Rgbb-em-pdimclrn C3-C7 degenerative disc disease with bilateral cervical facet osteoarthritis and multilevel mid and inferior cervicaluncovertebral osteoarthritis. Mild multilevel midthoracic degenerative disc disease. Mild L3-L4 and severe L5-S1 degenerative disc disease with inferiorlumbar facet osteoarthritis. THIS IS AN ELECTRONICALLY VERIFIED FINAL REPORT 01/07/2025 9:44 AM - Electronically signed by Segun Almazan M.D. MF: [email or web address] Report ID: [id number] Reading Location: [place] [address] [facility] Good DC IMG XR PROCEDURES Final [...] swelling. Mild cervical kyphosis. Mild C3-C4 and taad-cr-uqebvrcs C4-C7 degenerative disc disease. Flexion-extension views demonstrate [...] Flexion-extension views demonstrate no abnormal translation. IMPRESSION: Xpcu-bh-hhpeekin C3-C7 degenerative disc disease with bilateral cervical facet osteoarthritis and multilevel mid and inferior cervical uncovertebral osteoarthritis. Mild multilevel midthoracic degenerative disc disease. Mild L3-L4 and severe L5-S1 degenerative disc disease with inferior lumbar facet osteoarthritis. THIS IS AN ELECTRONICALLY VERIFIED FINAL REPORT 01/07/2025 9:44 AM - Electronically signed by Segun BALL: LIZZY Report ID: [id number] Reading Location: [id number] Procedure Note Segun Almazan MD - 01/07/2025 [...] swelling. Mild cervical kyphosis. Mild C3-C4 and gigs-ip-gdpafgmk C4-C7 degenerative discdisease. Flexion-extension views demonstrate mild [...] Flexion-extension views demonstrate no abnormal translation. IMPRESSION: Qjzl-mm-msaiyacp C3-C7 degenerative disc disease with bilateral cervical facet osteoarthritis and multilevel mid and inferior cervicaluncovertebral osteoarthritis. Mild multilevel midthoracic degenerative disc disease. Mild L3-L4 and severe L5-S1 degenerative disc disease with inferiorlumbar facet osteoarthritis. THIS IS AN ELECTRONICALLY VERIFIED FINAL REPORT 01/07/2025 9:44 AM - Electronically signed by Segun Almazan M.D. MF: [email or web address] Report ID: [id number] Reading Location: [id number] us [facility] Good DC IMG XR PROCEDURES Final Result * Hepatitis C antibody (08/23/2018 2:24 PM CLAIM REVIEW MEDICAL DIRECTOR) Hep C Ab NON-REACTI VE NON-REACTI VE [facility] - [place] SIGNAL TO CUT-OFF 0.01 <1.00 [facility] 08/23/2018 2:24 PM CLAIM REVIEW MEDICAL DIRECTOR 08/23/2018 2:25 PM CLAIM REVIEW MEDICAL DIRECTOR Narrative Resulting Agency Comment Performing Organization Information: Site ID: [id number] Name: [facility] Address: [address] [address] Director: Anthony Tyler D.O., MPH us Nishi Olsen MD LAB MICROBIOLOGY - GENERAL ORDERABLES Final Result [facility] * COLONOSCOPY (12/15/2017 11:42 AM CDT) Anatomical Region Laterality Modality Other Narrative Procedure Note Corazon Wellington MD - 12/15/2017 11:42 AM CDT [facility] Patient Name: Hina Garcia Procedure Date: 12/15/2017 11:42 AM Date of : 1965 Admit Type: Outpatient Age: 52 Gender: Female Attending MD: Corazon Wellington M.D. Room: [facility] CAPSULE Note Status: Finalized Patient Profile: [...] passed under direct vision.The Pediatric Colonoscope PCF-H190L [id number] was introduced through the anus and advanced [...] 11:42 AM Procedure Code(s): --- Professional --- 86151, Colonoscopy, flexible; diagnostic, including collection of specimen(s) by brushing or washing, when performed (separateprocedure) Diagnosis Code(s): --- Professional --- Z12.11, Encounter for screening for malignant neoplasm of colon CPT copyright 2017 [employer]. All rights reserved. The codes documented in this report are preliminary and upon access services representative reviewmay be revised to meet current compliance requirements. Recognized by the [employer] for promoting quality in endoscopy Corazon Wellington MD ENDOSCOPY PROCEDURES Final Result * ThinPrep Imaging Pap Reflex HPV mRNA E6/E7 (07/07/2016 10:12 AM CLAIM REVIEW MEDICAL DIRECTOR) SOURCE: SEE NOTE [facility] HISTORICAL RESULTS Comment:Cervix, [...] has been evaluated with computer assisted technology. Car Hopper SEE NOTE [facility] HISTORICAL RESULTS Comment: SHARON, CT(ASCP) CT screening location: [place] [address] Administration [place] [address] Review purse maker SEE NOTE [facility] HISTORICAL RESULTS Comment: PCM, CT(ASCP) CT screening location: [place] [address] Administration [place] [address] Test performed at [address] [address] Director: GRETCHEN MOODY MD 07/07/2016 10:1 2 AM CLAIM REVIEW MEDICAL DIRECTOR Nishi Olsen MD LAB PATHOLOGY ORDERABLES F inal Result [facility] HISTORICAL RESULTS from Last 3 Months or Most Recently Relevant to Health Maintenance Insurance [employer] [place] [employer] [place] [facility] Advance Directives For more information, please contact: [phone] Documents on File Type Date Recorded Patient Transfer Operator Expl anation ADVANCE DIRECTIVE 12/11/2021 POWER OF A TTORNEY-MEDICAL ADVANCE DIRECTIVE 05/07/2012 POWER OF A TTORNEY-MEDICAL * Full Code (Latest Code Status on File) Date Activated Date Inactivated Comments 12/15/2017 11:34 AM 12/15/2017 3:09 PM Care Teams Acid Concentrator Relationship Specialty Start Date End Date Michael Li MD [address] [place] [address] PCP - General Family Practice 07/07/24 Pepe Cross MD [address] [address] Obstetrics and Gynecology 08/24/17 Román Mcgee III, MD [address] [address] Surgeon Plastic Surgery 08/24/18 Román Acosta MD [address] [address] Surgeon Orthopedic Surgery 12/05/20 Maynor العراقي MD [address] [address] Consulting Physician Cardiology 12/05/20 Corazon Wellington MD [address] [address] Consulting Physician Gastroenterology 12/05/20
--- OUTSIDE RECORDS SUMMARY | 2025-02-16 13:08 | XMS_ITS | Encounter Summary ---
Author Organization [facility] Address [address] [place] [address] Phone Care Team Providers Care Science Writer Name Role Phone Nishi Olsen MD Primary Care Provider [phone] Pepe Cross MD Unavailable [phone] Everardo CHANDLER MD, Román Pérez Unavailable [phone] Bel Romero Unavailable [phone] Román Acosta MD Unavailable [phone] Maynor العراقي MD Unavailable [phone] Corazon Wellington MD Unavailable [phone] Unknown, Notinfile Primary Care Provider Unavail able Michael Li MD Primary Care Provider [phone] Encounter Details Date Type Department Care Team (Late st Contact Info) Description 04/26/2020 Orders Only [facility] [address] [place] [address] Scanning, Provider Social History Tobacco [...] file Legal 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 Gender Identity Female 03/02/2020 7:16 AM CDT [...] documented as of this encounter Care Teams Science Writer Relationship Specialty Start Date End Date Nishi Olsen MD PCP - General 10/31/16 12/01/22 Unknown, Notinfile PCP - General 01/31/23 07/06/24 Michael Li MD [address] [place] [address] PCP - General Family Practice 07/07/24 Pepe Cross MD [address] [address] Obstetrics and Gynecology 08/24/17 Román Mcgee III, MD [address] [address] Surgeon Plastic Surgery 08/24/18 Bel Romero PA [address] [address] Orthopedic Surgery 07/25/20 12/04/20 Román Acosta MD [address] [address] Surgeon Orthopedic Surgery 12/05/20 Maynor العراقي MD [address] [address] Consulting Physician Cardiology 12/05/20 Corazon Wellington MD [address] [facility] [address] [place] [address] Consulting Physician Gastroenterology 12/05/20 documented as of this encounter
--- OUTSIDE RECORDS SUMMARY | 2025-02-16 13:08 | XMS_ITS | Data Portability ---
Author Organization [employer], [facility] Address [address] [place] [address] Care Team Providers Care Museum Specialist Name Role Phone ANICETO MARSH Primary Care Provider Assessment No assessment recorded. Plan of Treatment Reminders Order Date Submit Date Provider Last Modified By Organization Details Last Modified Time Details Appointments None recorded. Lab CBC w/ auto diff 2019 020 Not available 0 14:27:34 vitamin D, 25-hydroxy, total, serum 2019 020 [email or web address] Not available 0 14:27:34 testosteron e, free, serum 2019 020 Not available 0 14:27:34 testosteron e, total, serum 2019 020 [email or web address] Not available 0 14:27:34 Referral physical therapist referral 2019 020 [email or web address] Not available 0 16:59:53 Procedures None recorded. Surgeries None recorded. Imaging None recorded. Medication Orders meloxicam 15 mg tablet 2019 020 [email or web address] [employer] #[id number], [address], [place], [id number], 0 14:27:34 diclofenac 1 % topical gel 2019 020 [email or web address] [employer] #[id number], [address] [place] [address], [id number], 0 14:27:34 Patient TargetsNo targets recorded. Patient InstructionsNo instructions recorded. Reason for Referral Physical Therapist Referral for Pain of hip region Referring Physician: Daria Ceballos, Preschool Disability Teacher, Encounter Date: 04/05/2020 Problems No Known Problems Procedures Surgical History Date Name Laterality Status Provider Name and Address Organization Details Recorded Time 0 Generic Procedure completed STACEY DELGADILLO [address] [facility] [address], [place], [address], [employer] 04/12/2020 12:54:54 Imaging Results None recorded. Procedure Notes None recorded. Medical Equipment None Reported. Allergies Allergen ID Allergen Name Allergen Category Reaction Reaction Severity Criticality Documentation Date Start Date Code Code System Note Provider Name and Address Organization Details Recorded Time 35488 amoxicill in medicatio n hives Not available Not available 04/05/2020 723 RxNorm Amy Maldonado [employer] 0 13:30:34 24873 Product containin g 3-hydroxy -3-methyl glutaryl- coenzyme A reductase inhibitor (product) medicatio n myalgias (muscle pain) Not available Not available 04/05/2020 41065 009 SNOMED Amy Maldonado [employer] 0 13:30:50 Medications Name Sig Start Date [...] Updated DateTime 04/05/2020 162.56 cm 24.9 kg/m2 98771.89 g Amy Mjoicaurban [employer] 04/05/2020 13:05:09 Social History Question Answer Notes LastModified by Organizat ion Details LastModified Time Tobacco Smoking Status Never Smoker Amy Okeefe SUSAN [facility]t [facility] [employer] [facility] 04/05/2020 13:35:46 Marital Status nicole Informatio n not available 04/05/2020 Sex: Unknown Functional Status Question Answer Note LastModified by Organizat ion Details LastModified Time What is your level of alcohol consumption? Occasional ssnofelzbieta Information not available 04/05/2020 Mental Status None recorded. Family History Nothing Reported. Medical History Condition Response Arthritis Y Kidney Cancer Y High Cholesterol Y Gynecological HistoryNo gynecological history recorded. Obstetrics History GPAL:G 0 P 0 0 0 0 Past Encounters Encounter ID Performer Location Encounter Start Date Encounter Closed Date Diagnosis/Indication Diagnosis SNOMED-CT Code Diagnosis ICD10 Code Diagnosis Note [id number] STACEY DELGADILLO [facility] [address] [place] [address] 04/05/2020 13:02:37 04/12/2020 16:59:19 Screening procedure 69103638 Z13.9 Z01.812 R53.83 M89.9 M94.9 E55.9 Pain of hip region 29467 002 M25.552 Derangemen t of medial meniscus 905137194 M23.307 Chondromal acia of left patella 1095266326 78244 M22.42 At today's office visit the patient's [...] We discussed the need for PRP at [facility] the 12-week krista. 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 She was provided with a prescripti on for that today Health Concerns Section Related Observation LastModified by Organization Detai ls LastModified Time None Recorded Concern Status LastModified by Organization Details LastModified Time None Recorded Advance Directives Directive None Recorded Payers Insurance Date Sequence Insurance Name Policy Number Policy Dumont Covered Member ID Dumont Member ID Guarantor Name 04/12/2020 1 [place] [id number] Henny Garcia [id number] Henny Garcia 03/21/2020 2 [place] Henny Garcia [id number] Henny Garcia Notes Date Note Type [...] She has tried rest, ice, physical therapy, career development consultant, acupuncture, nonsteroidal anti-inflammatories , massage, exercise, Tylenol and pain medication. She rates her pain as 7/10. She denies any mechanical symptoms. STACEY DELGADILLO [address], [place], [address], [facility] [employer] [facility], [facility] 04/12/2020 12:59:09 OBGyn Episode No OBEpisode recorded.
--- OUTSIDE RECORDS SUMMARY | 2025-02-16 13:08 | XMS_ITS | Encounter Summary ---
Author Organization [facility] Address [address] [facility] [place] [address] Phone Care Team Providers Care Head Still Operator Name Role Phone Camilo Cihsholm MD [facility] Michael Erazo MD Primary Care Provider [phone] Encounter Details Date Type Department Care Team (Late st Contact Info) Description 05/12/2023 Transcribe Orders [facility] Scheduling [address] [place] [address] Chiquita Benavidez APRN, ASBESTOS HANDLER [address] [address] Social History Tobacco Use Types Packs/Day Years [...] on filedocumented in this encounter Care Teams Head Still Operator Relationship Specialty Start Date End Date Michael Li MD [address] [place] [address] PCP - General Family Medicine 03/31/22 Camilo Chisholm MD Manager Psychiatry Cardiovascular Disease - Cardiology 03/21/22 documented as of this encounter
--- OUTSIDE RECORDS SUMMARY | 2025-02-16 13:08 | XMS_ITS | Encounter Summary ---
Author Organization [facility] Address [address] [place] [address] Phone Care Team Providers Care Net Mender Name Role Phone Nishi Olsen MD Primary Care Provider [phone] Pepe Cross MD Unavailable [phone] Everardo CHANDLER MD, Román Pérez Unavailable [phone] Bel Romero Unavailable [phone] Román Acosta MD Unavailable [phone] Maynor العراقي MD Unavailable [phone] Corazon Wellington MD Unavailable [phone] Unknown, Notinfile Primary Care Provider Unavail able Michael Li MD Primary Care Provider [phone] Encounter Details Date Type Department Care Team (Late st Contact Info) Description 11/08/2020 Orders Only [facility] [address] [place] [address] Nishi Olsen MD [address] [place], [place] [id number] Social History Tobacco Use Types Packs/Day Years [...] on file 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 Gender Identity Female 03/02/2020 7:16 [...] documented as of this encounter Care Teams Net Mender Relationship Specialty Start Date End Date Nishi Olsen MD PCP - General 10/31/16 12/01/22 Unknown, Notinfile PCP - General 01/31/23 07/06/24 Michael Li MD [address] [place] [address] PCP - General Family Practice 07/07/24 Pepe Cross MD [address] [place] [address] Obstetrics and Gynecology 08/24/17 Román Mcgee III, MD [address] [place] [address] Surgeon Plastic Surgery 08/24/18 Bel Romero PA [address] [address] Orthopedic Surgery 07/25/20 12/04/20 Román Acosta MD [address] [address] Surgeon Orthopedic Surgery 12/05/20 Maynor العراقي MD [address] [place] [address] Consulting Physician Cardiology 12/05/20 Corazon Wellington MD [address] [place] [address] Consulting Physician Gastroenterology 12/05/20 documented as of this encounter
--- OUTSIDE RECORDS SUMMARY | 2025-02-16 13:08 | XMS_ITS | Clinical Summary ---
Author Organization 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
--- OUTSIDE RECORDS SUMMARY | 2025-02-16 13:08 | XMS_ITS | Encounter Summary ---
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
--- OUTSIDE RECORDS SUMMARY | 2025-02-16 13:08 | XMS_ITS | Clinical Summary ---
Author Organization [facility] Address [address] [place] [place] [address] Phone Care Team Providers Care Lining Maker Hand Name Role Phone Camilo Chisholm MD Unavailable Michael Erazo MD Primary Care Provider [phone] Allergies Active Allergy Reactions Criticality Noted Date [...] Liver mass 03/05/2023 Iron deficiency 03/05/2023 Anemia Encounters Date Type Department Care Team Description 01/10/2025 3:39 PM CDT - 01/10/2025 11:59 PM CDT [facility] 1 [place] [address] Michael Li MD Discharge Disposition: Discharged to home or Selfcare 01/10/2025 Travel 12/05/2024 Transcribe Orders [facility] [address] [place] [address] [place] [address] Michael Li MD Encounter for screening mammogram for breast cancer (Primary Dx) from Last 3 Months Family History Medical [...] A M CDT Height 162.6 cm (5' 4) 11/23/2023 9:45 AM CDT Body Mass Index 22.86 11/23/2023 9:45 AM CDT Plan of Treatment Health Maintenance Due Date Last Done Comments Hepatitis C Virus (HCV) Screening 1966 Hepatitis B Immunization (1 of 3 - 19+ 3-dose series) 1985 Pap Smear 1987 Cervical Cancer Screening (CCS) 1996 HPV/Cotest 1996 Cologuard 2011 Colonoscopy 2011 Pneumococcal Immunization (50+ years) (1 of 1 - PCV) 2016 Zoster Immunization (2 of 2) 09/27/2019 08/02/2019 Colorectal Cancer Screening 03/16/2024 Immunochemical Fecal Occult Blood 03/16/2024 03/16/2023 SARS-COV-2 Immunization ( season) 2024 Influenza Immunization (#1) 04/03/202507/05, 05/30/2016, 05/30/2015, Additional history exists Mammogram 01/10/2026 01/10/2025, 05/0 10/2023, 12/04/2022, Additional history exists Respiratory Syncytial Virus (RSV) Immunization (Adult) (1 - 1-dose 75+ series) 2041 DTaP/Tdap/Td Immunization Discontinued 08/02/2020, 12/2011 TdaP Immunization Completed 08/02/2020, 05/07/2012 Human Papillomavirus (HPV) Immunization Aged Out No longer eligible based on patient's age to complete this topic Meningococcal Immunization (ACWY) Aged Out No longer eligible based on patient's age to complete this topic Rotavirus Immunization Aged Out No lo nger eligible based on patient's age to complete this topic Procedures Procedure Name Priority Date/Time Associated Diagnosis Comments ZACK SCREENING BILATERAL DIGITAL W CAD W LAUREANO Routine 01/10/2025 4:00 PM CDT Encounter for screening mammogram for breast cancer STOOL, OCCULT BLOOD, DIAGNOSTIC, VIA GUAIAC Routine 03/16/2023 1:26 PM CDT Anemia, unspecified type from Last 3 Months or Most Recently Relevant to Health Maintenance Results * ZACK SCREENING BILATERAL DIGITAL W CAD W LAUREANO (01/10/2025 4:00 PM CDT) Anatomical Region Laterality Modality breast Bilateral Mammography 01/10/2025 3:40 PM CDT Narrative 01/11/2025 12:23 PM CDT - ZACK SCREENING BILATERAL DIGITAL W CAD W LAUREANO BILATERAL DIGITAL SCREENING MAMMOGRAM 3D/2D WITH CAD WITH MEDIOLATERAL OBLIQUE CRANIOCAUDAL: 01/10/2025 The study was acquired using digital technology and interpreted from soft copy. Current study was also evaluated with ICAD version 7.2. 2D digital mammographic views, as well as 3D digital tomosynthesis were performed in the CC and MLO projections. CLINICAL: Routine screening. Patient has no complaints. No personal history of cancer. No family history of breast cancer. COMPARISONS: Comparison is made to exams dated: 12/04/2023, 12/04/2022, [facility] BREAST TISSUE:There are scattered areas of fibroglandular density. FINDINGS: No significant masses, calcifications, or other findings are seen in either breast. There has been no significant interval change. IMPRESSION: NEGATIVE There is no mammographic evidence of malignancy. A 1 year screening mammogram is recommended. A letter will be sent to the patient with these results. The patient will be entered into a reminder system with a target due date of 1 year for her next screening exam. Electronically signed by: Susanne vaughn/edgardo:01/11/2025 00:04:40 Manufacturing Operations Manager(s): RT Shelly(R)(M), [facility] letter sent: Normal Exam Reading location: [facility] BI-RADS: Category 1: Negative Procedure Note Susanne Riddle MD - 01/11/2025 - [facility] SCREENING BILATERAL DIGITAL W CAD W LAUREANO BILATERAL DIGITAL SCREENING MAMMOGRAM 3D/2D WITH CAD WITH MEDIOLATERAL OBLIQUE CRANIOCAUDAL: 01/10/2025 The study was acquired using digital technology and interpreted from soft copy. Current study was also evaluated with ICAD version 7.2. 2D digital mammographic views, as well as 3D digital tomosynthesis were performed in the CC and MLO projections. CLINICAL: Routine screening. Patient has no complaints. No personal history of cancer. No family history of breast cancer. COMPARISONS: Comparison is made to exams dated: 12/04/2023, 12/04/2022, and 11/22/2021 [facility]. BREAST TISSUE:There are scattered areas of fibroglandular density. FINDINGS: No significant masses, calcifications, or other findings are seen in either breast. There has been no significant interval change. IMPRESSION: NEGATIVE There is no mammographic evidence of malignancy. A 1 year screening mammogram is recommended. A letter will be sent to the patient with these results. The patient will be entered into a reminder system with a target due date of 1 year for her next screening exam. Electronically signed by: Susanne Riddle M.D. ll/penrad:01/11/2025 00:04:40 Manufacturing Operations Manager(s): RT Shelly(R)(M), [facility] letter sent: Normal Exam Reading location: [facility] BI-RADS: Category 1: Negative Michael Li MD IMG MAMMO ORDERABLES Final Resu lt * STOOL, OCCULT BLOOD, DIAGNOSTIC (03/16/2023 1:26 PM CDT) OCCULT BLOOD DIAG Negative Negative 03/16/2023 2:[address] [facility] Stool STOOL SPECIMEN / Unknown Non-Phlebotomy Collection / Unknown 03/16/2023 1:26 PM CDT 03/16/2023 1:26 PM CDT Michael Li MD BODY FLUIDS & STOOLS ORDERABLES Final Result [facility] [address] [place] [address] from Last 3 Months or Most Recently Relevant to Health Maintenance Insurance MEDICAID [facility] Care Teams Lining Maker Hand Relationship Specialty Start Date End Date Michael Li MD [address] [place], [place] [id number] PCP - General Family Medicine 03/31/22 Camilo Chisholm MD Supervisor Car Installations Cardiovascular Disease - Cardiology 03/21/22
--- OUTSIDE RECORDS SUMMARY | 2025-02-16 13:08 | XMS_ITS | Encounter Summary ---
Author Organization [facility] Address [address] [facility] [place] [address] Phone Care Team Providers Care Flow Specialist Name Role Phone Camilo Chisholm MD [facility] Michael Erazo MD Primary Care Provider [phone] Encounter Details Date Type Department Care Team (Late st Contact Info) Description 05/12/2023 Transcribe Orders [facility] Central Scheduling [address] [place] [address] Chiquita Benavidez APRN, IRRIGATION SUPERVISOR [address] [address] Social History Tobacco Use Types Packs/Day Years [...] on filedocumented in this encounter Care Teams Flow Specialist Relationship Specialty Start Date End Date Michael Li MD [address] [place] [address] PCP - General Family Medicine 03/31/22 Camilo Chisholm MD Estimator And Drafter Supervisor Cardiovascular Disease - Cardiology 03/21/22 documented as of this encounter
--- OUTSIDE RECORDS SUMMARY | 2025-02-16 13:08 | XMS_ITS | Clinical Summary ---
Author Organization [facility] Address [address] [place] [address] Care Team Providers Care Small Lot Operator Name Role Phone Michael Li MD Primary Care Provider [phone] Source Comments [facility],non-owned Affiliates and Associated Physician Practices is amultiple site organization consisting of ambulatory clinics and hospital sitesin [place], [place], [place] and [place]. This disclosure is being madepursuant to the Care Everywhere program and may not contain all information available regarding this patient. Last updated 18.[facility] Allergies Active Allergy Reactions Criticality Noted Date Comments Amoxicillin Urticaria Medium 01/28/2019 Reaction: Hives, , Buspirone Other Low 03/27/2022 Reaction: dry mouth, Reaction: dry mouth, Medications * Be aware that medications may not be up to date on this document. Alwaysverify current medications with the patient. ezetimibe (Zetia) 10 MG tablet ezetimibe 10 mg tablet 1 Active fluticasone propionate (Flonase) 50 MCG/ACT nasal spray [place] 2 (two) sprays into the nose once daily 2 Active gabapentin (Neurontin) 300 MG capsule Take 1 (one) capsule by mouth 2 times daily 2 Active rosuvastatin (Crestor) 5 MG tablet Take 1 (one) tablet by mouth once daily 2 Active tiZANidine (Zanaflex) 4 MG tablet Take 0.5 (one-half) tablet to 1 (one) tablet by mouth 2 Active traMADol (Ultram) 50 MG tablet Take 1 (one) tablet by mouth 2 times daily as needed For pain. 2 Active COLLAGEN PO Take 2 Scoops by [...] Encounters Date Type Department Care Team Description 01/02/2025 Orders Only [facility] [address] [place] [phone] Ishmael Vallejo MD 12/05/2024 Results Follow-Up [facility] [address] [place] [address] Cheri Swanson, RN Results 12/02/2024 Orders Only [facility] [address] [place] [address] Ishmael Vallejo MD Cyst and pseudocyst of pancreas (HCC) ; Abnormal finding of biliary tract 11/25/2024 5:17 PM CDT - 11/25/2024 11:59 PM CDT Hospital Encounter [facility] MRI [address] [place] [phone] Ishmael Vallejo MD Discharge Disposition: Home or Self Care from Last 3 Months Family History Medical History Relation Name Comments Cancer - Skin, Non Melanoma Father Cancer - Skin, Melanoma Mother Relation Name Status Comments Father Mother Social History Tobacco Use Types Packs/Day Years Used Date Smoking Tobacco: Never Smokeless Tobacco: Never Alcohol Use Standard Drinks/Week Comments Yes 8 (1 standard drink = 0.6 oz pur e alcohol) daily Comments No Sex and Gender Information Value Date Recorded Sex Assigned at Not on file Legal Sex Female 8:57 AM CDT Gender Identity Not on file Sexual Orientation Not on file Last Filed Vital Signs Vital Sign Reading Time Taken Comments Blood Pressure 120/73 09/08/2024 1:55 PM HEEL COMPRESSOR Pulse 62 09/08/2024 1:55 PM HEEL COMPRESSOR Temperature 36.6 C (97.8 F) 09/08/2024 1:55 PM HEEL COMPRESSOR Respiratory Rate 13 05/27/2023 3:25 PM CDT Oxygen Saturation 100% 09/08/2024 1:55 PM HEEL COMPRESSOR Inhaled Oxygen Concentration - - Weight 60.3 kg (133 lb) 09/08/2024 1:55 PM HEEL COMPRESSOR Height 162.6 cm (5' 4) 09/08/2024 1:55 PM HEEL COMPRESSOR Body Mass Index 22.83 09/08/2024 1:55 PM HEEL COMPRESSOR Plan of Treatment Upcoming Encounters Date Type Department Care Team (Late st Contact Info) Description 11/30/2025 9:30 AM CDT Appointment [facility] MRI [address] [place] [phone] Ishmael Vallejo MD [address] [place] [address] [address] [place] [address] Health Maintenance Due Date Last Done Comments COLOGUARD (AGES 45-75) - COLON CA SCREENING 1966 COLON MONITORING 1966 COLONOSCOPY - COLON CA SCREENING 1966 CT COLONOGRAPHY - COLON CA SCREENING 1966 Colorectal Cancer Screening 1966 FIT - COLON CA SCREENING 1966 FLEX SIG - COLON CA SCREENING 1966 HIV SCREENING 1981 HEPATITIS C SCREENING 06/12/1984 DTAP/TDAP/TD VACCINES (1 - Tdap) 1985 HEPATITIS B VACCINE (1 of 3 - 19+ 3-dose series) 1985 PAP SMEAR 1987 PNEUMOCOCCAL VACCINE 50+ (1 of 1 - PCV) 2016 ZOSTER VACCINE (1 of 2) 2016 COVID-19 VACCINE (1 - season) 2024 DEPRESSION SCREENING 08/03/2024 INFLUENZA VACCINE (#1) 2025 , 05/30/2016, 05/30/2015, Additional history exists MAMMOGRAM 12/03/2025 12/04/2023, 050 11/2022, 11/22/2021 HIB VACCINE Aged Out No [...] Management General On track( 025 3:11 PM HEEL COMPRESSOR) No Jolly Newby, ELIECER Note: Expected end date: ongoing Interventions: Take all medications as prescribed Let your doctor know right away about any changes in your medications Make sure to request a refill of your medication at least one week prior to your last dose Procedures Procedure Name Priority Date/Time Associated Diagnosis Comments HEPATIC FUNCTION PANEL 01/02/2025 2:44 PM CDT MRI ABDOMEN W MRCP WWO CONT W3D Routine 11/25/2024 6:14 PM CDT IPMN (intraductal papillary mucinous neoplasm) from Last 3 Months Results * HEPATIC FUNCTION PANEL (01/02/2025 2:44 PM CDT) Protein Total 6.8 6.1 - 8.1 g/dL [facility] Albumin 4.5 3.6 - 5.1 g/dL [facility] Globulin Total 2.3 1.9 - 3.7 g/dL (calc) [facility] Albumin/Globulin Ratio 2.0 1.0 - 2.5 (calc) [facility] Bilirubin Total 0.3 0.2 - 1.2 mg/dL [facility] Bilirubin Direct 0.1 < OR = 0.2 mg/dL [facility] Bilirubin Indirect 0.2 0.2 - 1.2 mg/dL (calc) [facility] Alkaline Phosphatase 55 37 - 153 U/L [facility] AST 20 10 - 35 U/L [facility] ALT 13 6 - 29 U/L [facility] Comment: Test Performed at: [facility] [address] [place] [address] GRETCHEN MOODY MD 01/02/2025 2:44 PM CDT 01/02/2025 2:45 PM CDT Ishmael Brown MD LAB - CHEMISTRY SCOTT SALDANA Final Result [facility] [address] [place] [address] * MRI Abdomen W Mrcp Wwo Cont W3D (11/25/2024 6:14 PM CDT) Anatomical Region Laterality Modality Abdomen Magnetic Resonan ce 11/27/2024 10:1 6 AM CDT Impressions 11/27/2024 10:31 AM CDT Impression: 1.Liver: Unremarkable MRI examination of the liver. No focal lesions are seen in the liver. 2.Biliary system: Gallbladder is unremarkable. Mild intrahepatic bile duct dilation noted. Extrahepatic bile ducts are normal caliber. 3.Pancreatic: Approximately 8 x 10 mm cyst in the body of the pancreas with the suggestion of communication with the duct. The pancreatic duct is slightly prominent. These findings could suggest intraductal papillary mucinous neoplasm (IPMN). Follow-up MRI in 12 months can be helpful for assessment of stability. 4.Right kidney is not identified. Left kidney shows a few cysts including renal sinus cysts. > Interpreting Provider: Ronny Jung MD on 11/27/2024 10:31 AM Narrative 11/27/2024 10:31 AM CDT PROCEDURE: MRI ABDOMEN W MRCP WWO CONT W3D, DATE/TIME OF EXAM: 11/25/2024 6:14 PM, LOCATION [facility] INDICATION: D49.0: IPMN (intraductal papillary mucinous neoplasm) ADDITIONAL CLINICAL INFORMATION: Ordering Provider Reason For Exam: Technologist Note: Additional: COMPARISON: None. TECHNIQUE: Noncontrast followed by multiphasic contrast-enhanced MRI examination of was performed using routine multiplanar sequences. MRCP: 3-D MRCP images were obtained and MIP reconstruction were also performed from the source images. CONTRAST: 12 mL of MultiHance was used as intravenous contrast. No procedure related complications seen. IMAGE QUALITY: Average diagnostic quality. Findings: Lower Chest: Lung bases are clear. No pleural effusion seen. Hepatobiliary system Liver morphology: Normal morphology, smooth outline and normal signal intensity. Steatosis: None. Iron: None. Varices: None. Spleen: Normal. Normal splenic signal intensity. Ascites: None. Focal liver observations No arterial hyperenhancing or nonhyperenhancing hepatic observations as seen. Hepatic vasculature Portal and hepatic veins: Patent. Arterial anatomy: Conventional. Biliary system: Gallbladder: Normal. Intrahepatic bile ducts: Mild to moderate intrahepatic bile ductal dilation is noted. Extrahepatic bile ducts: CBD is normal caliber and course. Common bile duct measures: 4 mm. Ductal stones or obstructing lesions: None. Pancreas: Pancreas is normal morphology and signal intensity. An approximately 8 x 10 mm cyst noted in the body of the pancreas with the suggestion of communication with the duct (image 22 series 3). Pancreatic duct: Prominent pancreatic duct, duct measures 3 mm in the head of pancreas. Retroperitoneum Adrenals: Unremarkable. Kidneys: Right kidney is not identified in the renal fossa. Left kidney shows normal morphology and signal intensity. A few cysts are seen in the kidney, a few renal sinus cysts are also noted. No solid renal lesions or no hydronephrosis. Lymph nodes: No significantly enlarged retroperitoneal or mesenteric lymph node enlargement. Blood vessels: Aorta and inferior vena cava are unremarkable. Gastrointestinal: Stomach and visualized small bowel loops and colon are unremarkable. Other findings: None. Procedure Note Rnony Jung MD - 11/27/2024 PROCEDURE: MRI ABDOMEN W MRCP WWO CONT W3D, DATE/TIME OF EXAM:11/25/2024 6:14 PM, LOCATION [facility] INDICATION: D49.0: IPMN (intraductal papillary mucinous neoplasm) ADDITIONAL CLINICAL INFORMATION: Ordering Provider Reason For Exam: Technologist Note: Additional: COMPARISON: None. TECHNIQUE: Noncontrast followed by multiphasic contrast-enhanced MRI examination of was performed using routine multiplanar sequences. MRCP: 3-D MRCP images were obtained and MIP reconstruction were also performed from the source images. CONTRAST: 12 mL of MultiHance was used as intravenous contrast. No procedurerelated complications seen. IMAGE QUALITY: Average diagnostic quality. Findings: Lower Chest: Lung bases are clear. No pleural effusion seen. Hepatobiliary system Liver morphology: Normal morphology, smooth outline and normal signal intensity. Steatosis: None. Iron: None. Varices: None. Spleen: Normal. Normal splenic signal intensity. Ascites: None. Focal liver observations No arterial hyperenhancing or nonhyperenhancing hepatic observations as seen. Hepatic vasculature Portal and hepatic veins: Patent. Arterial anatomy: Conventional. Biliary system: Gallbladder: Normal. Intrahepatic bile ducts: Mild to moderate intrahepatic bile ductaldilation is noted. Extrahepatic bile ducts: CBD is normal caliber and course. Common bile duct measures: 4 mm. Ductal stones or obstructing lesions: None. Pancreas: Pancreas is normal morphology and signal intensity. An approximately 8 x 10 mm cyst noted in the body of the pancreas with the suggestion of communication with the duct (image 22 series 3).Pancreatic duct: Prominent pancreatic duct, duct measures 3 mm in the head of pancreas. Retroperitoneum Adrenals: Unremarkable. Kidneys: Right kidney is not identified in the renal fossa. Left kidney shows normal morphology and signal intensity. A few cysts are seen inthe kidney, a few renal sinus cysts are also noted. No solid renal lesionsor no hydronephrosis. Lymph nodes: No significantly enlarged retroperitoneal or mesentericlymph node enlargement. Blood vessels: Aorta and inferior vena cava are unremarkable. Gastrointestinal: Stomach and visualized small bowel loops and colon are unremarkable. Other findings: None. Impression: 1.Liver: Unremarkable MRI examination of the liver. No focal lesions are seen in the liver. 2.Biliary system: Gallbladder is unremarkable. Mild intrahepatic bileduct dilation noted. Extrahepatic bile ducts are normal caliber. 3.Pancreatic: Approximately 8 x 10 mm cyst in the body of the pancreaswith the suggestion of communication with the duct. The pancreatic duct is slightly prominent. These findings could suggest intraductal papillary mucinous neoplasm (IPMN). Follow-up MRI in 12 months can be helpful for assessment of stability. 4.Right kidney is not identified. Left kidney shows a few cystsincluding renal sinus cysts. > Interpreting Provider: Ronny Jung MD on 0:31 AM Ishmael Brown MD MR ORDERABLES Kathy l Result from Last 3 Months Insurance SELF PAY NO INSURANCE Member Subscriber Plan / Payer (Ef fective for All Dates) Name:Henny Garcia Member ID:Not on file Relation to Subscriber:Not on file Name:HENNY GARCIA Subscriber ID:Not on file (Home) Address: [address] [place] [id number] Payer ID:Not on file Group ID:Not on file Type:Self Pay Address: [facility] Care Teams Small Lot Operator Relationship Specialty Start Date End Date Michael Li MD [address] [facility] [place] [phone] PCP - General 08/13/22
--- OUTSIDE RECORDS SUMMARY | 2025-02-16 13:08 | XMS_ITS | Encounter Summary ---
Author Organization [facility] Address [address] [place] [address] Phone Care Team Providers Care Dielectric Testing Machine Operator Name Role Phone Nishi Olsen MD Primary Care Provider [phone] Pepe Cross MD Unavailable [phone] Everardo CHANDLER MD, Román Pérez Unavailable [phone] Bel Romero Unavailable [phone] Román Acosta MD Unavailable [phone] Maynor العراقي MD Unavailable [phone] Corazon Wellington MD Unavailable [phone] Unknown, Notinfile Primary Care Provider Unavail able Michael Li MD Primary Care Provider [phone] Encounter Details Date Type Department Care Team (Late st Contact Info) Description 08/17/2017 Orders Only [facility] [address] [address] Nishi Olsen MD [address] [place], [place] [id number] Social History Tobacco Use Types Packs/Day Years Used Date Smoking Tobacco: Former Cigarettes Q uit: 08/03/1983 Alcohol Use Standard Drinks/Week Comments Yes 0 (1 standard drink = 0.6 oz pur e alcohol) Comments Unknown Sex and Gender Information Value Date Recorded Sex Assigned at Not on file Legal Sex Female 3:58 PM NATUROPATHIC ONCOLOGY PROVIDER Gender Identity Female 03/02/2020 7:16 AM CDT Sexual Orientation Straight 03/02/2020 7: 16 AM CDT documented as of this encounter Plan of Treatment Not on file documented as of this encounter Procedures Procedure Name Priority Date/Time Associated Diagnosis Comments SCAN - RADIOLOGY/IMAGING 08/17/2017 11:55 AM NATUROPATHIC ONCOLOGY PROVIDER documented in this encounter Results * SCAN - RADIOLOGY/IMAGING (08/17/2017 11:55 AM NATUROPATHIC ONCOLOGY PROVIDER) Anatomical Region Laterality Modality Other us Nishi Olsen MD Final Resu lt documented in this encounter Visit Diagnoses Not on filedocumented in this encounter Additional Health Concerns Infection Onset Date Last Indicated Resolved Time COVID: Recovered Comment:Patient meets COVID recovered criteria. Positive lab results from 07/03. JACOB Ng 07/23/2020 07/23/2020 11/21/19 21 3:05 AM CDT documented as of this encounter Care Teams Dielectric Testing Machine Operator Relationship Specialty Start Date End Date Nishi Olsen MD PCP - General 10/31/16 12/01/22 Unknown, Notinfile PCP - General 01/31/23 07/06/24 Michael Li MD [address] [place] [address] PCP - General Family Practice 07/07/24 Pepe Cross MD [address] [place] [address] Obstetrics and Gynecology 08/24/17 Román cMgee III, MD [address] [place] [address] Surgeon Plastic Surgery 08/24/18 Bel Romero PA [address] [place] [address] Orthopedic Surgery 07/25/20 12/04/20 Román Acosta MD [address] [place] [address] Surgeon Orthopedic Surgery 12/05/20 Maynor العراقي MD [address] [place] [address] Consulting Physician Cardiology 12/05/20 Corazon Wellington MD [address] [place] [address] Consulting Physician Gastroenterology 12/05/20 documented as of this encounter
[2025-02-16 13:40] LABS: Hematocrit 40.0 % (37.0-47.0); Hemoglobin 13.3 g/dL (12.0-15.0); Immature Granulocyte Percent A 0.3 % (0-0.5); Lymphocytes Absolute Auto 1.26 K/mm3 (0.9-3.2); Mean Corpuscular HGB Conc 33.3 g/dl (32-36); Mean Corpuscular Hemoglobin 31.1 pg (26-34); Mean Corpuscular Volume 93.7 fl (80-100); Nucleated Red Blood Cells Absolute Auto 0.000 K/mm3 (0.0-0.012); Nucleated Red Blood Cells Perc 0.0 % (0.0-0.2); Platelet Count Result 212 k/mm3 (150-375); Red Blood Count 4.27 M/mm3 (4.2-5.4); White Blood Count 3.6 K/mm3 (4.5-10.0)
[2025-02-16 14:07] LABS: Alanine Aminotransferase 20 U/L (6-35); Albumin Level 4.5 g/dL (3.5-5.1); Alkaline Phosphatase 55 U/L (38-126); Anion Gap 8 mmol/L (4-12); Aspartate Amino Transferase 33 U/L (14-36); Bilirubin,Total 0.4 mg/dL (0.2-1.3); Blood Urea Nitrogen 22 mg/dL (7-17); CRP < 0.5 mg/dL (<1.0); Calcium 9.1 mg/dL (8.4-10.2); Carbon Dioxide 25 mmol/L (22-30); Chloride 105 mmol/L (98-107); Cholesterol 292 mg/dL (0-200); Estimated Glomerular Filt Rate > 60; Glucose 94 mg/dL (65-110); HDL Direct 75 mg/dL; Magnesium 2.0 mg/dL (1.6-2.3); Potassium 3.9 mmol/L (3.4-5.0); Sodium 138 mmol/L (137-145); Total Protein 7.3 g/dL (6.3-8.2); Triglycerides 67 mg/dL (<150)
[2025-02-16 14:39] LABS: Thyroid Stimulating Hormone 0.841 uIU/mL (0.465-4.680)
[2025-02-16 15:21] LABS: Vitamin B12 > 1000.0 pg/mL (239-931)
[2025-02-16 19:02] LABS: Iron 82 ug/dL (37-170)
[2025-02-16 19:11] LABS: Percent Iron Saturation 25 % (20-50)
[2025-02-16 19:28] LABS: Free T4 Free Thyroxine 0.90 ng/dL (0.78-2.19)
[2025-02-16 19:47] LABS: Ferritin 26.60 ng/mL (11.1-264)
[2025-02-21 08:08] LABS: ANA by IFA Rfx Titer/Pattern Negative (.)
== END 2025-02-16 13:05 | disposition home or self-care (01) ==
LOC: ANHLAB 13:05
PROVIDERS: PCP Family Medicine; Visit Provider Family Medicine
DX: Z00.00 Encounter for general adult medical examination without abnormal findings (principal); F98.8 Other specified behavioral and emotional disorders with onset usually occurring in childhood and adolescence; R00.2 Palpitations; E78.5 Hyperlipidemia, unspecified; R79.89 Other specified abnormal findings of blood chemistry; R74.01 Elevation of levels of liver transaminase levels; R16.0 Hepatomegaly, not elsewhere classified; R74.8 Abnormal levels of other serum enzymes; K86.2 Cyst of pancreas; D64.9 Anemia, unspecified; D72.819 Decreased white blood cell count, unspecified; D49.0 Neoplasm of unspecified behavior of digestive system; M54.2 Cervicalgia; R41.3 Other amnesia
CPT/HCPCS: 36415; 80053; 80061; 82172; 82306; 82607; 82728; 82746; 83090; 83540; 83550; 83735; 84439; 84443; 84479; 84630; 85025; 85652; 86038; 86140